=== PATIENT | female | born 1955 ===

== ENCOUNTER 2020-04-03 07:53 | Emergency (ER) | payer MEDICARE, MEDICAID, SELFPAY ==
--- NOTE | 2020-04-03 | ECG_ITS ---
Test Reason : CHEST PAIN Blood Pressure : / mmHG Vent. Rate : 071 BPM Atrial Rate : 277 BPM P-R Int : 000 ms QRS Dur : 136 ms QT Int : 426 ms P-R-T Axes : 057 -13 016 degrees QTc Int : 462 ms Normal sinus rhythm Right bundle branch block Minimal voltage criteria for LVH, may be normal variant Abnormal ECG When compared with ECG of 21-JAN-2014 17:25, No significant changes seen Referred By: Generic ED Physician Electronically Signed By:SIENNA DUBOSE
[2020-04-03 08:21] VITALS: BP 174/53; PULSE 61; RESP 16; TEMP 37.1; O2SAT 99; BMI 30.7
--- NOTE | 2020-04-03 08:29 | PC.NURSE ---
TRIAGED AT BEDSIDE WITH USE OF CARD PLACER. IV EST 20 G L AC. AWAITING PRIMARY EVAL BY PROVIDER
--- NOTE | 2020-04-03 09:05 | XR_ITS ---
EXAMINATION: XR CHEST CLINICAL INFORMATION: Chest pain COMPARISON: Previous chest x-ray April 2019 TECHNIQUE: Frontal view of the chest was obtained. FINDINGS: The cardiac and mediastinal contours are normal. The lungs are clear. There is no pleural effusion or pneumothorax. There are degenerative changes of the spine. There are soft tissue calcifications adjacent to the right greater tuberosity. XR/XR chest 1V IMPRESSION: No evidence for acute disease in the chest.
--- NOTE | 2020-04-03 09:07 | ED_ITS ---
HPI - Chest Pain General Chief Complaint: Chest Pain Stated Complaint: chest pain Time Seen by Provider: 04/03/20 09:05 Source: patient Mode of arrival: ambulatory Limitations: no limitations History of Present Illness HPI narrative: 64 y/o female with history of asthma, IDDM, HTN. HLD, GERD who presents with left sided, non-radiating chest pain that started this morning when her woke up her suddenly to take her medications. She states the manner he awoke her startled her and she developed pain in the left side of her chest. It is now resolved. She states the pain was sharp and aching in nature. It was worse when she touched it. She denies SOB, N/V, arm pain, jaw pain, diaphoresis. She denies personal or family history of cardiac disease. She had never had chest pain like this before and it made her very nervous, prompting ER evaluation. On arrival pain is resolved. MD complaint: chest pain Pertinent past history: asthma Onset (ago): hour(s) (3) Timing of current episode: episodic and now resolved Prior episodes: No Onset: other (upon waking up) Pain location: left chest Pain radiation: none Severity: mild Quality: aching and sharp Relieving factors: rest Exacerbating factors: palpation Treatment prior to arrival: none Risk Factors Coronary artery disease risk factors: diabetes, hyperlipidemia and hypertension Thoracic aortic dissection risk factors: none Related Data On Oral Contraceptives: No Allergies Allergy/AdvReac Type Severity Reaction Status Date / Time No Known Allergies Allergy Verified 04/03/20 08:24 Review of Systems Review of Systems: Constitutional: No Fever, No Chills ENT/Mouth: No sore throat, No Rhinorrhea, No Swallowing Difficulty Cardiovascular: + Chest Pain, No SOB, No Orthopnea, No Edema Respiratory: No Cough, No Sputum, No Wheezing, No dyspnea Gastrointestinal: No Nausea, No Vomiting, No Diarrhea, No abdominal Pain Genitourinary: No Dysuria, No Urinary Frequency, No Hematuria Musculoskeletal: + joint pain (bilateral knees and left shoulder, chronic), No Myalgias Skin: No Skin Lesions, No rash Neuro: No Weakness, No Numbness, + Dizziness (now resolved), No Headache Psych: + Anxiety/Panic, No Depression Heme/Lymph: No Bruising, No Lymphadenopathy Endocrine: No Polyuria, No Polydipsia REPLACED BY [facility] Past Medical History Medical History (Updated 04/03/20 @ 12:57 by ANABELLA Rodriguez) Asthma Diabetes GERD (gastroesophageal reflux disease) Hyperlipidemia Hypertension Osteoarthritis Social History Social History Advance Directives: No Advance Directives Information Provided: Yes Physical Exam Vital Signs: Vital Signs: Last Vital Signs Temp 98.7 F 04/03/20 08:21 Pulse 65 04/03/20 11:24 Resp 16 04/03/20 08:21 BP 144/57 H 04/03/20 11:24 Pulse Ox 99 04/03/20 08:21 Body Mass Index 30.7 Appearance: Alert. Oriented X3. No acute distress. Eyes: Pupils equal, round and reactive to light. ENT: Pharynx normal. Neck: Normal inspection. Neck supple. CVS: Normal heart rate and rhythm. Pulses normal. Left chest wall tenderness. Respiratory: No respiratory distress. Breath sounds normal. Abdomen: Soft and nontender. +BS x4 Skin: Skin warm and dry. Normal skin color. Normal skin turgor. No rashes. Extremities: No lower extremity edema. Negative Rossy's sign. Neuro: Oriented X 3. No motor deficit. No sensory deficit. Course Course Course Narrative: 64 y/o female with multiple cardiac risk factors presents with acute onset of left sided chest pain, now resolved. It is reproducible on exam, likely musculoskeletal in nature. Will r/o ACS with EKG, troponin and lab work. Exam is otherwise benign and she currently denies chest pain. Reevaluation(s) Reevaluation #1: Workup is unremarkable with negative troponin x2, unchanged EKG from prior and normal CXR. She remains pain free. No sign of cardiac chest pain, likely muscular in nature. Results were discussed with the patient. She is stable for discharge. MDM - Chest Pain Differential Diagnosis Differential diagnosis: Likely stable angina, unstable angina pectoris, atypical chest pain, st elevation myocardial infarction, costochondritis, chest pain and biliary colic Lab Data Attestation: I reviewed the patient's lab results. Lab results narrative: troponin <3.5 x2 Result diagrams: 04/03/20 09:47 04/03/20 09:47 Labs: Lab Results 04/03/20 04/03/20 04/03/20 Range/Units 09:47 09:47 09:47 WBC 6.9 (4.8-10.8) X10*3/uL RBC 4.02 L (4.20-5.50) X10*6/uL Hgb 11.7 L (12.0-16.0) g/dl Hct 34.9 L (37-47) % MCV 86.8 (80-98) fL MCH 29.1 (27.0-33.0) pg MCHC 33.5 (31.0-35.0) g/dl RDW 12.4 (11.0-16.0) % Plt Count 223 (160-400) X10*3/uL MPV 10.0 (9.4-12.3) fL Immature Gran % (Auto) 0.3 (0.0-0.4) % Neut % (Auto) 67.0 (45-73) % Lymph % (Auto) 22.5 (20-40) % Clay % (Auto) 8.9 (2-11) % Eos % (Auto) 1.2 (0-4) % Baso % (Auto) 0.1 (0-2) % Lymph # (Auto) 1.6 (1.2-4.9) X10*3/uL Clay # (Auto) 0.6 (0.1-1.2) X10*3/uL Eos # (Auto) 0.1 (0.0-0.4) X10*3/uL Baso # (Auto) 0.0 (0.0-0.2) X10*3/uL Abs Immat Gran (auto) 0.02 (0.00-0.03) X10*3/uL Absolute Neuts (auto) 4.6 (2.0-8.3) X10*3/uL Absolute Nucleated RBC 0.000 (0.0-0.012) X10*3/uL Nucleated RBC % (auto) 0.0 (0.0-0.2) /100WBC PT 12.6 (10.8-13.0) SEC INR 1.1 (0.9-1.1) APTT 37.6 (24.1-38.0) SEC Sodium 138 (135-145) mmol/L Potassium 4.1 (3.3-5.1) mmol/l Chloride 103 (96-108) mmol/L Carbon Dioxide 28 (22-29) mmol/L Anion Gap 11 L (12-20) BUN 17 H (9-16) mg/dL Creatinine 0.73 (0.5-1.4) mg/dL Estim Creat Clear Calc 64.0 Estimated GFR > 60 Random Glucose 185 H (60-115) mg/dL Calcium 9.3 (8.4-10.2) mg/dL Magnesium 1.7 (1.6-2.6) mg/dL Total Bilirubin 0.5 (0.0-1.0) mg/dL Direct Bilirubin 0.2 (0.0-0.5) mg/dL AST 26 (5-31) U/L ALT 32 H (0-31) U/L Alkaline Phosphatase 60 (39-117) U/L Troponin I High Sens (<3.5-17.0) ng/L B-Natriuretic Peptide (<100) pg/mL Total Protein 7.4 (6.5-8.0) g/dL Albumin 3.9 (3.5-5.0) g/dL 04/03/20 04/03/20 Range/Units 09:47 12:07 WBC (4.8-10.8) X10*3/uL RBC (4.20-5.50) X10*6/uL Hgb (12.0-16.0) g/dl Hct (37-47) % MCV (80-98) fL MCH (27.0-33.0) pg MCHC (31.0-35.0) g/dl RDW (11.0-16.0) % Plt Count (160-400) X10*3/uL MPV (9.4-12.3) fL Immature Gran % (Auto) (0.0-0.4) % Neut % (Auto) (45-73) % Lymph % (Auto) (20-40) % Clay % (Auto) (2-11) % Eos % (Auto) (0-4) % Baso % (Auto) (0-2) % Lymph # (Auto) (1.2-4.9) X10*3/uL Clay # (Auto) (0.1-1.2) X10*3/uL Eos # (Auto) (0.0-0.4) X10*3/uL Baso # (Auto) (0.0-0.2) X10*3/uL Abs Immat Gran (auto) (0.00-0.03) X10*3/uL Absolute Neuts (auto) (2.0-8.3) X10*3/uL Absolute Nucleated RBC (0.0-0.012) X10*3/uL Nucleated RBC % (auto) (0.0-0.2) /100WBC PT (10.8-13.0) SEC INR (0.9-1.1) APTT (24.1-38.0) SEC Sodium (135-145) mmol/L Potassium (3.3-5.1) mmol/l Chloride (96-108) mmol/L Carbon Dioxide (22-29) mmol/L Anion Gap (12-20) BUN (9-16) mg/dL Creatinine (0.5-1.4) mg/dL Estim Creat Clear Calc Estimated GFR Random Glucose (60-115) mg/dL Calcium (8.4-10.2) mg/dL Magnesium (1.6-2.6) mg/dL Total Bilirubin (0.0-1.0) mg/dL Direct Bilirubin (0.0-0.5) mg/dL AST (5-31) U/L ALT (0-31) U/L Alkaline Phosphatase (39-117) U/L Troponin I High Sens < 3.5 < 3.5 (<3.5-17.0) ng/L B-Natriuretic Peptide 37 (<100) pg/mL Total Protein (6.5-8.0) g/dL Albumin (3.5-5.0) g/dL ABG Data Attestation: I personally reviewed and interpreted this ABG as follows: ECG Data ECG #1: Attestation: I personally reviewed and interpreted this ECG as follows: ECG interpretation date: 04/03/20 ECG interpretation time: 12:57 Prior ECG tracings: available for review Interpretation: normal sinus rhythm, HR 712 bpm, RBBB, normal QRS. Unchanged from Jan 2014 Scores Heart Score History: -0- slightly suspicious ECG: -0- normal Age: -2- > or = 65 Risk factory: -1- 1 or 2 risk factors Troponin: -0- < or = normal limit Score: 3 Risk: 1.7% Discharge Plan Discharge Clinical Impression: Muscular chest pain Patient Disposition: Home, Self-Care Instructions: Chest Wall Pain (ED) Additional Instructions: Your workup today was unremarkable, it is highly unlikely that your chest pain is cardiac in nature. It is likely that the pain was muscular. Rest, no strenuous activity. Take Tylenol as needed for any residual pain. Follow up with your doctor this week. If you develop any recurrent chest pain or any other concerning symptoms come back to the ER for further evaluation. Print Language: Frisian
--- NOTE | 2020-04-03 09:16 | PC.NURSE ---
SEEN BY PROVIDER AT THIS TIME
[2020-04-03 10:03] LABS: Basophils Percent Auto 0.1 % (0-2); Eosinophils Absolute Auto 0.1 X10*3/uL (0.0-0.4); Eosinophils Percent Auto 1.2 % (0-4); Hematocrit 34.9 % (37-47); Hemoglobin 11.7 g/dl (12.0-16.0); Imm Gran Abs Auto 0.02 X10*3/uL (0.00-0.03); Imm Gran Pct Auto 0.3 % (0.0-0.4); Lymphocytes Absolute Auto 1.6 X10*3/uL (1.2-4.9); Lymphocytes Percent Auto 22.5 % (20-40); MANUAL DIFF FLAG NO; Mean Corpuscular HGB Conc 33.5 g/dl (31.0-35.0); Mean Corpuscular Hemoglobin 29.1 pg (27.0-33.0); Mean Corpuscular Volume 86.8 fL (80-98); Monocytes Absolute Auto 0.6 X10*3/uL (0.1-1.2); Monocytes Percent Auto 8.9 % (2-11); Neutrophils Absolute Auto 4.6 X10*3/uL (2.0-8.3); Platelet Count 223 X10*3/uL (160-400); Red Blood Count 4.02 X10*6/uL (4.20-5.50); Red Cell Distribution Width 12.4 % (11.0-16.0); White Blood Count 6.9 X10*3/uL (4.8-10.8)
[2020-04-03 10:13] LABS: INTERNATIONAL NORM RATIO 1.1 (0.9-1.1); Prothrombin Time 12.6 SEC (10.8-13.0)
[2020-04-03 10:15] LABS: Partial Thromboplastin Time 37.6 SEC (24.1-38.0)
[2020-04-03 10:38] LABS: Alanine Aminotransferase 32 U/L (0-31); Albumin Level 3.9 g/dL (3.5-5.0); Alkaline Phosphatase 60 U/L (39-117); Anion Gap 11 (12-20); Aspartate Amino Transferase 26 U/L (5-31); Bilirubin Direct 0.2 mg/dL (0.0-0.5); Bilirubin Total 0.5 mg/dL (0.0-1.0); Blood Urea Nitrogen 17 mg/dL (9-16); Calcium 9.3 mg/dL (8.4-10.2); Carbon Dioxide 28 mmol/L (22-29); Chloride 103 mmol/L (96-108); Estimated Glomerular Filt Rate > 60; Glucose Random 185 mg/dL (60-115); Magnesium 1.7 mg/dL (1.6-2.6); Potassium 4.1 mmol/l (3.3-5.1); Sodium 138 mmol/L (135-145); Total Protein 7.4 g/dL (6.5-8.0)
[2020-04-03 10:40] LABS: B Type Natriuretic Peptide 37 pg/mL (<100); Troponin-I High Sensitivity < 3.5 ng/L (<3.5-17.0)
[2020-04-03 11:24] VITALS: BP 144/57; PULSE 65
[2020-04-03 12:51] LABS: Troponin-I High Sensitivity < 3.5 ng/L (<3.5-17.0)
== END 2020-04-03 13:23 | disposition home or self-care (01) ==
PROVIDERS: Physician Assistant; Emergency Provider Emergency Medicine Emergency Medical Services; PCP Nurse Practitioner Family
DX: R07.89 Other chest pain (principal); I10 Essential (primary) hypertension; E11.9 Type 2 diabetes mellitus without complications; Z79.899 Other long term (current) drug therapy
CPT/HCPCS: 36415; 71045; 80048; 80076; 83735; 83880; 84484; 85025; 85610; 85730; 93005; 99283

== ENCOUNTER → 2020-07-03 08:54 | Outpatient (BNVA) | payer MEDICARE, MEDICAID, SELFPAY | PROVIDERS: Visit Provider Orthopaedic Surgery | DX: M17.12 Unilateral primary osteoarthritis, left knee (principal) | CPT/HCPCS: 20610; 99212; J1040 ==

== ENCOUNTER 2020-07-19 08:00 | Outpatient (REF) | payer MEDICARE, MEDICAID, SELFPAY ==
[2020-07-19 08:31] LABS: COVID-19 Test Negative (Negative)
== END 2020-07-19 08:01 | disposition home or self-care (01) ==
LOC: HO.LAB 08:00
PROVIDERS: Visit Provider Internal Medicine
DX: Z20.822 Contact with and (suspected) exposure to COVID-19 (principal)
CPT/HCPCS: 36415; 87635; C9803

== ENCOUNTER 2020-12-25 12:50 | Outpatient (REF) | payer MEDICARE, MEDICAID, SELFPAY ==
--- NOTE | ~2020-12-25 | XR_ITS ---
EXAMINATION: XR BOTH KNEES AP STANDING XR RIGHT KNEE, 2 VIEWS CLINICAL INFORMATION: Pain. COMPARISON: Bilateral knee radiographs dated 01/18/2019 TECHNIQUE: Standing AP view of both knees and lateral and sunrise views of the right knee. FINDINGS: Right knee: Moderate medial compartment joint space narrowing. Tiny medial and patellofemoral compartment marginal osteophytes. No osseous erosion. No fracture or dislocation. No significant joint effusion. Atherosclerotic calcifications. Left knee: Moderate medial compartment joint space narrowing. Medial and lateral compartment chondrocalcinosis and marginal osteophytes. No osseous erosion. No fracture or dislocation. XR/XR knee standing BI IMPRESSION: Right knee: Moderate medial as well as mild lateral compartment osteoarthritis, similar when compared to the prior radiographs. Left knee: Fbvrnozq-fz-bwayka medial and ojgh-th-[id number] lateral compartment osteoarthritis with medial and lateral compartment chondrocalcinosis, unchanged.
--- NOTE | ~2020-12-25 | XR_ITS ---
EXAMINATION: XR BOTH KNEES AP STANDING XR RIGHT KNEE, 2 VIEWS CLINICAL INFORMATION: Pain. COMPARISON: Bilateral knee radiographs dated 01/18/2019 TECHNIQUE: Standing AP view of both knees and lateral and sunrise views of the right knee. FINDINGS: Right knee: Moderate medial compartment joint space narrowing. Tiny medial and patellofemoral compartment marginal osteophytes. No osseous erosion. No fracture or dislocation. No significant joint effusion. Atherosclerotic calcifications. Left knee: Moderate medial compartment joint space narrowing. Medial and lateral compartment chondrocalcinosis and marginal osteophytes. No osseous erosion. No fracture or dislocation. XR/XR knee RT 2V IMPRESSION: Right knee: Moderate medial as well as mild lateral compartment osteoarthritis, similar when compared to the prior radiographs. Left knee: Qondrrdk-zb-htkguf medial and bfuw-ks-ewgaaolj lateral compartment osteoarthritis with medial and lateral compartment chondrocalcinosis, unchanged.
== END 2020-12-25 12:51 | disposition home or self-care (01) ==
LOC: HO.HOSX 12:50
PROVIDERS: Visit Provider Physician Assistant
DX: M54.16 Radiculopathy, lumbar region (principal); M17.11 Unilateral primary osteoarthritis, right knee
CPT/HCPCS: 73560; 73565; 99212

== ENCOUNTER → 2021-01-18 10:58 | Outpatient (BNVA) | payer MEDICARE, MEDICAID, SELFPAY | PROVIDERS: PCP Physician Assistant; Visit Provider Nurse Practitioner Family | DX: M54.16 Radiculopathy, lumbar region (principal); M17.12 Unilateral primary osteoarthritis, left knee | CPT/HCPCS: 99202 ==

== ENCOUNTER 2021-01-28 08:28 | Outpatient (REF) | payer MEDICARE, MEDICAID, SELFPAY ==
--- NOTE | ~2021-01-28 | MM_ITS ---
EXAMINATION: MM SCREENING DIGITAL BREAST TOMOSYNTHESIS, BILATERAL CLINICAL INFORMATION: Screening. Asymptomatic. The lifetime risk of breast cancer based on the Tyrer-Cuzick Model is 3%. COMPARISON: Mammography: 02/03/2019, 01/18/2018, 03/13/2017 TECHNIQUE: Digital breast tomosynthesis is performed in both the craniocaudal and mediolateral oblique views along with computer-aided detection (CAD). Synthesized 2D images are generated from the tomosynthesis. FINDINGS: The breasts are heterogeneously dense, which may obscure small masses (ACR BI-RADS breast composition Category c). Parenchymal pattern is similar to prior studies. Breast tissue composition borders on extremely dense. There is no developing density or interval mass or architectural abnormality. Again, there are numerous bilateral punctate and grouped coarse and vascular calcifications. No interval suspicious calcifications. The axilla and skin contours are unremarkable. There are no significant changes from prior studies. MM/MM tomosynthesis screening BI IMPRESSION: No mammographic evidence of malignancy. ASSESSMENT: BI-RADS 2: Benign RECOMMENDATION: Routine annual mammography screening. This patient's information was entered into a reminder system with a target due date for their next mammogram.
== END 2021-01-28 08:29 | disposition home or self-care (01) ==
LOC: HO.MAMMO 08:28
PROVIDERS: Visit Provider Nurse Practitioner Family
DX: Z12.31 Encounter for screening mammogram for malignant neoplasm of breast (principal)
CPT/HCPCS: 77063; 77067

== ENCOUNTER 2021-03-06 14:54 | Emergency (ER) | payer MEDICARE, MEDICAID, SELFPAY ==
--- NOTE | ~2021-03-06 | XR_ITS ---
EXAMINATION: XR CHEST CLINICAL INFORMATION: Cough and congestion. COMPARISON: None TECHNIQUE: 2 views of the chest were obtained. FINDINGS: The lungs are well-expanded and clear of acute process. The heart size and pulmonary vascularity is normal. There is moderate spondylosis dorsal spine. No lytic process seen. XR/XR chest 2V IMPRESSION: Unremarkable chest exam.
[2021-03-06 15:07] VITALS: BP 161/78; PULSE 76; RESP 18; TEMP 36.4; O2SAT 94; BMI 30.2
[2021-03-06 16:31] VITALS: BP 169/81; PULSE 69; RESP 16; TEMP 36.8; O2SAT 96
[2021-03-06 17:11] LABS: Influenza A PCR NEGATIVE (Negative); Influenza B PCR NEGATIVE (Negative); Resp Syncy Virus RNA Qual PCR NEGATIVE (Negative); SARS COV2 PCR INHOUSE NEGATIVE (Negative)
[2021-03-06] MEDS: predniSONE 20 MG TABLET 40 MG PO (17:24)
[2021-03-06] MEDS: Albuterol Sulfate (0.083%) 2.5 MG/3 ML VIAL.NEB 10 MG INHALE (17:25)
[2021-03-06 17:30] VITALS: PULSE 68; O2SAT 97
--- NOTE | 2021-03-06 17:36 | ED_ITS ---
HPI - URI/Sore Throat General Chief Complaint: General Medical Stated Complaint: COUGHING CONGESTION Time Seen by Provider: 03/06/21 15:25 Source: patient and family Mode of arrival: ambulatory Limitations: language barrier (Bengali-Speaking ) History of Present Illness HPI Narrative: 65-year-old female with a past medical history of asthma, insulin-dependent diabetes, hypertension, hyperlipidemia and GERD presenting to the ED with complaints of URI symptoms over the past few days after receiving her flu shot worse today. Reports that she is having chills, intermittent episodes of epistaxis, nasal congestion/rhinorrhea, sore throat and a dry cough with chest congestion. She reports she has been trying [id number] Robitussin no symptomatic relief. She denies any recent travel or sick contacts. She reports that she is vaccinated to COVID for 7 months. She denies any measured fevers, dizziness, headaches, neck pain/stiffness, trouble swallowing or breathing, chest pain or shortness of breath, dyspnea on exertion, orthopnea, palpitations, nausea/vomiting/diarrhea constipation, dysuria, abdominal pain, back pain, rashes or any focal weakness or any other symptoms complaints or concerns at this time. MD elicited complaint: cough, sore throat, rhinorrhea and nasal congestion Onset (ago): day(s) (For the past few days worse today) Consistency: constant and progressively worsening Severity: moderate Description of mucous: clear, watery and yellow Able to tolerate fluids by mouth: Yes Exacerbating factors: swallowing Relieving factors: nothing Context: other (Reports she received the flu shot and the day after started having the symptoms) Associated symptoms: rhinorrhea, nasal congestion, sore throat, cough and epistaxis Treatments prior to arrival: cold medicine Related Data Previous Rx's Medication Instructions Recorded diclofenac sodium 75 mg 75 mg PO BID 30 Days #60 tab 01/22/21 tablet,delayed release albuterol sulfate 0.63 mg/3 mL 0.63 mg (3 mL) INHALATION QID PRN 03/06/21 solution for nebulization #75 ml albuterol sulfate 90 mcg/actuation 1 inh INHALATION QID PRN #8.5 g 03/06/21 aerosol inhaler azithromycin 250 mg tablet See Rx Instructions .ROUTE 03/06/21 .COMPLEX #6 tab codeine 10 mg-guaifenesin 100 mg/5 5 ml PO Q6H PRN #120 ml 03/06/21 mL oral liquid (Guaifenesin AC) nebulizers (AeroEclipse II #1 ea 03/06/21 Nebulizer) prednisone 20 mg tablet 40 mg PO DAILY 5 Days #10 tab 03/06/21 Allergies Allergy/AdvReac Type Severity Reaction Status Date / Time No Known Allergies Allergy Verified 01/18/21 11:25 Review of Systems Review of Systems: Constitutional : No Weight loss, No Fever, No Chills, No Night Sweats, No Fatigue, No Malaise ENT/Mouth : No Hearing loss, No Ear Pain, + Nasal Congestion, No Sinus Pain, No Hoarseness, + sore throat, + Rhinorrhea, No Swallowing Difficulty Eyes: No Eye Pain, No Swelling, No Redness, No Foreign Body, No Discharge, No Vision Changes Cardiovascular : No Chest Pain, No SOB, No Dyspnea on Exertion, No Orthopnea, No Edema, No Palpitations Respiratory : + Cough, No Sputum, No Wheezing, No Smoke Exposure, No Dyspnea Gastrointestinal : No Nausea, No Vomiting, No Diarrhea, No Constipation, No abdominal Pain, No Hematochezia, No Melena Genitourinary : no irregular bleeding, No Dysuria, No Urinary Frequency, No Hematuria, No Urinary Incontinence, No Urgency, No Flank Pain, No Urinary Flow Changes, No Hesitancy Musculoskeletal : No joint pain, No Myalgias, No Joint Swelling Skin : No Skin Lesions, No rash Neuro : No Weakness, No Numbness, No Paresthesias, No Loss of Consciousness, No Dizziness, No Headache Psych : No Anxiety/Panic, No Depression, No SI/HI/AH/VH, No Social Issues, Heme/Lymph: No Bruising, No Bleeding,No Lymphadenopathy Endocrine : No Polyuria, No Polydipsia, No Temperature Intolerance Yes all other systems are reviewed and are negative [facility] Past Medical History Attestation statement: The following information was validated with the patient. Medical History Asthma Diabetes GERD (gastroesophageal reflux disease) Hyperlipidemia Hypertension Osteoarthritis Social History Social History Advance Directives: No Advance Directives Information Provided: No Physical Exam Vital Signs: Vital Signs: Last Vital Signs Temp 97.4 F 03/06/21 18:33 Pulse 77 03/06/21 18:33 Resp 16 03/06/21 18:33 BP 143/74 H 03/06/21 18:33 Pulse Ox 98 03/06/21 18:33 BMI result Body Mass Index 30.2 vital signs have been reviewed as normal and appeared to be correct. Blood pressure 161/78 Heart rate normal. Respiration rate normal. Temperature normal. Oxygen saturation normal. Appearance: Alert. Oriented X3. No acute distress. Head: Normal external exam. Normocephalic. Atraumatic. Eyes: PERRLA. EOMI. Conjunctiva and sclera normal. Eyelids normal. ENT: EAC normal. TM's Normal. Pharynx normal. Uvula midline. Moist mucous membranes. No trismus noted. No drooling noted. No muffled voice noted. Neck: Normal inspection. Neck supple. FROM. No adenopathy. Thyroid Normal. No meningeal signs. No neck mass noted. CVS: Normal heart rate and rhythm. Heart sound normal. Pulses normal throughout. No murmurs/rales/gallops. Respiratory: Mild respiratory distress with inspiratory and expiratory wheezing throughout with decreased breath sounds and chest congestion otherwise patient has painless inspiration and no rales/rhonchi noted. No accessory muscle usage noted. Abdomen: Soft and nontender. Bowel sounds normal in all 4 quadrants. No distention noted. No organomegaly noted. No visible injury noted. Back: Full range of motion noted. No rashes/lesion/induration/fluctuance or signs of infection noted. Skin: Skin warm and dry. Normal skin color. Normal skin turgor. No rashes/lesions/lacerations noted. Extremities: No lower extremity edema. No calf tenderness is noted. Extremities exhibit normal range of motion. Extremities nontender. Neuro: Oriented X 3. No motor deficit. No sensory deficit. Reflexes normal. Normal steady gait. No focal neuro deficits noted. Vascular: + radial pulses/+ 2 distal pedal pulses/+2 dorsalis pedis b/l. Normal cap refill. No cyanosis noted to upper extremity nails and lower extremity toes nails. Course Course Course Narrative: 65-year-old female with a past medical history of asthma, insulin-dependent diabetes, hypertension, hyperlipidemia and GERD presenting to the ED with complaints of URI symptoms over the past few days after receiving her flu shot worse today. Reports that she is having chills, intermittent episodes of epistaxis, nasal congestion/rhinorrhea, sore throat and a dry cough with chest congestion. She reports she has been trying [id number] Robitussin no symptomatic relief. She denies any recent travel or sick contacts. She reports that she is vaccinated to COVID for 7 months. On exam patient had mild respiratory distress with decreased breath sounds and expiratory and inspiratory wheezing with oxygen saturation at 94% on room air. Otherwise no rhonchi/rales noted. CV RRR. No lower extremity edema noted. Her chest x-ray is negative for pneumonia or any other acute processes. COVID/RSV/flu negative. Patient received a breathing treatment feels much better. Her oxygen saturation is now 98% on room air. Will DC home with antibiotics for bronchitis and symptomatic treatment instructions return if any new or worsening symptoms to follow up with primary care provider. Patient understands agrees with this plan. MDM - URI/Sore Throat Medical Records Attestation: I reviewed the patient's medical records. Lab Data Attestation: I reviewed the patient's lab results. Labs: Lab Results 03/06/21 Range/Units 15:35 Influenza Type A (PCR) NEGATIVE (Negative) Influenza Type B (PCR) NEGATIVE (Negative) RSV RNA Qual (PCR) NEGATIVE (Negative) SARS-CoV-2 RNA (RT-PCR) NEGATIVE (Negative) Imaging Data Chest x-ray: Attestation: I personally reviewed and interpreted this imaging study as follows: Radiologist's impression: FINDINGS: The lungs are well-expanded and clear of acute process. The heart size and pulmonary vascularity is normal. There is moderate spondylosis dorsal spine. No lytic process seen. XR/XR chest 2V IMPRESSION: Unremarkable chest exam. Critical Care Time Critical Care Time Critical Care Time: Yes Total Critical Care Time: 60 Attestation: I personally attest to this time spent taking care of the patient Discharge Plan Discharge Clinical Impression: Acute bronchitis with asthma with acute exacerbation Patient Disposition: Home, Self-Care Instructions: Asthma (ED), Acute Bronchitis (ED) Prescriptions: New (DME) AeroEclipse II Nebulizer Misc See Rx Instructions .ROUTE .MEDSUPPLY Qty: 1 RF: 0 albuterol sulfate 0.63 mg/3 mL solution for nebulization 0.63 mg inhalation QID PRN (Reason: shortness of breath or wheezing) Qty: 75 RF: 0 albuterol sulfate 90 mcg/actuation HFA aerosol inhaler 1 inh inhalation QID PRN (Reason: shortness of breath or wheezing) Qty: 8.5 RF: 0 azithromycin 250 mg tablet See Rx Instructions .ROUTE .COMPLEX Qty: 6 RF: 0 prednisone 20 mg tablet 40 mg PO DAILY 5 Days Qty: 10 RF: 0 codeine-guaifenesin [Guaifenesin AC] 10-100 mg/5 mL liquid 5 ml PO Q6H PRN (Reason: cold symptoms) Qty: 120 RF: 0 No Action diclofenac sodium 75 mg tablet,delayed release (DR/EC) 75 mg PO BID 30 Days Qty: 60 RF: 2 Referrals: Physician,Unknown J [Primary Care Provider] - 2 days (your pcp) Print Language: Bengali
[2021-03-06 18:33] VITALS: BP 143/74; PULSE 77; RESP 16; TEMP 36.3; O2SAT 98
--- NOTE | 2021-03-06 18:35 | PC.NURSE ---
PATIENT WENT WENT FOR WALK WITH PULSE OX ,OXYGEN REMAIN AT 96%,PROVIDER AWARE .
[2021-03-06] MEDS: Azithromycin 500 MG TABLET PO (19:10)
== END 2021-03-06 18:54 | disposition home or self-care (01) ==
PROVIDERS: Physician Assistant Medical; Emergency Provider Emergency Medicine
DX: J20.9 Acute bronchitis, unspecified (principal); J45.901 Unspecified asthma with (acute) exacerbation; Z20.822 Contact with and (suspected) exposure to COVID-19; Z79.899 Other long term (current) drug therapy
CPT/HCPCS: 0241U; 36415; 71046; 94640; 94644; 99284

== ENCOUNTER 2021-04-10 09:07 | Outpatient (REF) | payer MEDICARE, MEDICAID, SELFPAY ==
[2021-04-10 10:42] LABS: COVID-19 Test Positive (Negative)
== END 2021-04-10 09:08 | disposition home or self-care (01) ==
LOC: HO.LAB 09:07
PROVIDERS: Visit Provider Internal Medicine
DX: Z20.822 Contact with and (suspected) exposure to COVID-19 (principal)
CPT/HCPCS: 87635; C9803

== ENCOUNTER 2021-04-20 12:36 | Emergency (ER) | payer MEDICARE, MEDICAID, SELFPAY ==
--- NOTE | ~2021-04-20 | XR_ITS ---
EXAMINATION: XR CHEST CLINICAL INFORMATION: Cough, Covid. COMPARISON: None TECHNIQUE: Frontal view of the chest was obtained. FINDINGS: The lungs are well-expanded with slight increased bilateral parahilar markings but no congestion. No consolidation or pleural effusion seen. The heart size is normal. There is moderate spondylosis dorsal spine. XR/XR chest 1V IMPRESSION: Bilateral increased parahilar markings question interstitial pneumonitis or vascular congestion.
--- NOTE | 2021-04-20 13:07 | PC.NURSE ---
trying to obtain trimmer buffing wheel
[2021-04-20 13:15] VITALS: BP 166/75; PULSE 77; RESP 18; TEMP 36.5; O2SAT 95; BMI 30.2
[2021-04-20 13:39] LABS: COVID-19 Test Positive (Negative); IDNOW Serial# 9DD0AD1C
--- NOTE | 2021-04-20 18:29 | ED.URI ---
HPI - URI/Sore Throat General Chief Complaint: Upper Respiratory Symptoms Stated Complaint: coughing SOB Time Seen by Provider: 04/20/21 14:18 Source: patient Mode of arrival: ambulatory Limitations: no limitations History of Present Illness HPI Narrative: 65 y/o female with history of asthma, GERD, diabetes, osteoarthritis, HLD who presents to the ER with coughing that started yesterday. She recently had COVID-19 on April 10. She reports a mild lingering cough but yesterday significantly worsening of the cough with new production of white phlegm. She denies any fever or chills. She is short of breath when she has a coughing fit but not with exertion or rest. She denies any chest pain. MD elicited complaint: cough Pertinent past history: asthma Onset (ago): day(s) (1) Consistency: intermittent Severity: moderate Description of mucous: other ( White) Able to tolerate fluids by mouth: Yes Exacerbating factors: other (coughing) Relieving factors: OTC cold medicine Associated symptoms: cough and shortness of breath ( with coughing only) Treatments prior to arrival: none Related Data Previous Rx's Medication Instructions Recorded diclofenac sodium 75 mg 75 mg PO BID 30 Days #60 tab 01/22/21 tablet,delayed release albuterol sulfate 0.63 mg/3 mL 0.63 mg (3 mL) INHALATION QID PRN 03/06/21 solution for nebulization #75 ml albuterol sulfate 90 mcg/actuation 1 inh INHALATION QID PRN #8.5 g 03/06/21 aerosol inhaler azithromycin 250 mg tablet See Rx Instructions .ROUTE 03/06/21 .COMPLEX #6 tab codeine 10 mg-guaifenesin 100 mg/5 5 ml PO Q6H PRN #120 ml 03/06/21 mL oral liquid (Guaifenesin AC) nebulizers (AeroEclipse II #1 ea 03/06/21 Nebulizer) prednisone 20 mg tablet 40 mg PO DAILY 5 Days #10 tab 03/06/21 azithromycin 250 mg tablet See Rx Instructions .ROUTE 04/20/21 (Zithromax Z-Otoniel) .COMPLEX #6 tab benzonatate 100 mg capsule 100 mg PO TID PRN #20 cap 04/20/21 Allergies Allergy/AdvReac Type Severity Reaction Status Date / Time No Known Allergies Allergy Verified 04/20/21 13:15 Review of Systems Review of Systems: Constitutional: No Fever, No Chills ENT/Mouth: No sore throat, No Rhinorrhea, No Swallowing Difficulty Cardiovascular: No Chest Pain, No SOB, No Orthopnea, No Edema Respiratory: + Cough, + Sputum, No Wheezing, No dyspnea Gastrointestinal: No Nausea, No Vomiting, No Diarrhea, No abdominal Pain Musculoskeletal: No joint pain, No Myalgias Skin: No Skin Lesions, No rash Neuro: No Weakness, No Numbness, No Dizziness, No Headache Heme/Lymph: No Bruising, No Lymphadenopathy PMFSH Past Medical History Medical History Asthma Diabetes GERD (gastroesophageal reflux disease) Hyperlipidemia Hypertension Osteoarthritis Social History Social History Advance Directives: Yes Advance Directives Information Provided: Yes Advance Directives on File: No Physical Exam Vital Signs: Vital Signs: Last Vital Signs Temp 97.7 F 04/20/21 13:15 Pulse 77 04/20/21 13:15 Resp 18 04/20/21 13:15 BP 166/75 H 04/20/21 13:15 Pulse Ox 95 04/20/21 13:15 BMI result Body Mass Index 30.2 Appearance: Alert. Oriented X3. No acute distress. Eyes: Pupils equal, round and reactive to light. ENT: Pharynx normal. Neck: Normal inspection. Neck supple. CVS: Normal heart rate and rhythm. Pulses normal. Respiratory: No respiratory distress. Breath sounds normal. Speaks in complete sentences, no distress. No cough noted in the 10 minute interview. Abdomen: Soft and nontender. +BS x4 Skin: Skin warm and dry. Normal skin color. Normal skin turgor. No rashes. Extremities: No lower extremity edema. No calf tenderness. Neuro: Oriented X 3. No motor deficit. No sensory deficit. Course Course Course Narrative: 65-year-old female with a history of asthma, diabetes, GERD, HLD, osteoarthritis, history of bronchitis in March and recent COVID-19 who presents to the ER with productive cough that started yesterday. On arrival her vital signs are within normal limits. Her exam is benign and she appears well. Her lungs are clear with no noted cough during the interview or examination. Her chest x-ray shows some increased interstitial markings but no overt pneumonia. She has no signs of fluid overload on exam and has no history of heart failure. Most likely acute bronchitis, either secondary to COVID-19 or another viral process. Will hold off on steroids given she is not wheezing and she reports her glucose has been in the 300s. She has plenty nebulizer treatments at home. Stable for discharge home with azithromycin and antitussives. She was encouraged to follow-up with her primary care doctor next week. MDM - URI/Sore Throat Lab Data Labs: Lab Results 04/20/21 Range/Units 13:20 COVID-19 (BELLA) Positive A (Negative) COVID-19 Clin Com See Note Discharge Plan Discharge Clinical Impression: Bronchitis Patient Disposition: Home, Self-Care Instructions: Acute Bronchitis (ED) Additional Instructions: Continue to use your nebulizer treatments every 4 hours as needed Recommend over the counter cough mediation and cough drops Stay hydrated Follow up with your doctor next week If you develop new or worsening symptoms call 911 or come back to the ER for further evaluation. Contin?e usando shane tratamientos con nebulizador cada 4 horas seg?n sea necesario Recomiende medicamentos para la tos y pastillas para la tos de venta loulou Mantente hidratado Seguimiento con jenkins m?dico la pr?xima semana Si desarrolla s?ntomas nuevos o que empeoran, llame al 911 o regrese a la kahlil de emergencias para tiara evaluaci?n adicional. Prescriptions: New azithromycin [Zithromax Z-Otoniel] 250 mg tablet See Rx Instructions .ROUTE .COMPLEX Qty: 6 RF: 0 benzonatate 100 mg capsule 100 mg PO TID PRN (Reason: cough) Qty: 20 RF: 0 No Action diclofenac sodium 75 mg tablet,delayed release (DR/EC) 75 mg PO BID 30 Days Qty: 60 RF: 2 (DME) AeroEclipse II Nebulizer Misc See Rx Instructions .ROUTE .MEDSUPPLY Qty: 1 RF: 0 albuterol sulfate 0.63 mg/3 mL solution for nebulization 0.63 mg inhalation QID PRN (Reason: shortness of breath or wheezing) Qty: 75 RF: 0 albuterol sulfate 90 mcg/actuation HFA aerosol inhaler 1 inh inhalation QID PRN (Reason: shortness of breath or wheezing) Qty: 8.5 RF: 0 azithromycin 250 mg tablet See Rx Instructions .ROUTE .COMPLEX Qty: 6 RF: 0 prednisone 20 mg tablet 40 mg PO DAILY 5 Days Qty: 10 RF: 0 codeine-guaifenesin [Guaifenesin AC] 10-100 mg/5 mL liquid 5 ml PO Q6H PRN (Reason: cold symptoms) Qty: 120 RF: 0 Interventions: ED Discharge Assessment Last Done: 04/20/21 19:26 Discharge Date/Time: 04/20/21 19:28
== END 2021-04-20 19:28 | disposition home or self-care (01) ==
PROVIDERS: Emergency Provider Internal Medicine
DX: U07.1 COVID-19 (principal); J40 Bronchitis, not specified as acute or chronic; E11.9 Type 2 diabetes mellitus without complications; E78.5 Hyperlipidemia, unspecified; Z79.899 Other long term (current) drug therapy
CPT/HCPCS: 71045; 87635; 99283

== ENCOUNTER 2021-04-25 07:47 | Outpatient (REF) | payer MEDICARE, MEDICAID, SELFPAY ==
[2021-04-25 08:13] LABS: COVID-19 Test Negative (Negative)
== END 2021-04-25 07:48 | disposition home or self-care (01) ==
LOC: HO.LAB 07:47
PROVIDERS: Visit Provider Internal Medicine
DX: Z20.822 Contact with and (suspected) exposure to COVID-19 (principal)
CPT/HCPCS: 87635; C9803

== ENCOUNTER → 2021-05-22 12:42 | Outpatient (BNVA) | payer MEDICARE, MEDICAID, SELFPAY | PROVIDERS: Visit Provider Physician Assistant | DX: K21.9 Gastro-esophageal reflux disease without esophagitis (principal); K52.9 Noninfective gastroenteritis and colitis, unspecified; R10.11 Right upper quadrant pain | CPT/HCPCS: 99212 ==

== ENCOUNTER → 2021-11-18 09:13 | Outpatient (REF) | payer MEDICARE, MEDICAID, SELFPAY ==
--- NOTE | 2021-11-18 09:40 | CA_ITS ---
Transthoracic Echocardiogram Patient (Last, First, Middle): Olivia Rivero, Gender: Female Date of : 1955 Age: 66 Procedure Date: 11/18/2021 Procedure Type: Transthoracic Echocardiogram Location: OP Height: 149.86 cm Weight: 68.95 kg BSA: 1.64 m2 Heart Rate: bpm BP: 122 / 56 mmHg Automation Driver: Referring MD: Maryann Bolton OIL WELL LOGGER Symptoms: I51.7 CARDIOMEGALY J90 PLEURAL EFFUSION Study Quality: Adequate ECG Rhythm: Sinus Conclusions: - The left ventricular systolic function is mildly decreased. The calculated ejection fraction is 50% by biplane method. - The inferolateral wall and basal inferior segment are akinetic. - No obvious valvular pathology seen on this study. Findings Left Ventricle Normal left ventricular cavity size. There is mildly increased left ventricular wall thickness. The left ventricular systolic function is mildly decreased. The calculated ejection fraction is 50% by biplane method. There is evidence of regional wall motion abnormalities. E/E prime ratio is >15, consistent with elevated filling pressures. Evidence suggests grade II (moderate) diastolic dysfunction. Wall Motion Rest Echo Findings The inferolateral wall and basal inferior segment are akinetic. Right Ventricle Normal right ventricular cavity size and systolic function. Atria Both atria are normal in size. Aortic Valve There is a normal trileaflet aortic valve. There is no aortic valve stenosis. There is no aortic valve regurgitation. Mitral Valve There is mild mitral annular calcification. There is mild mitral valve regurgitation. There is no mitral valve stenosis. Pulmonic Valve The pulmonic valve is likely normal. Tricuspid Valve There is mild tricuspid valve regurgitation. There is no evidence of pulmonary hypertension. Great Vessels The aortic annulus, sinuses of valsalva, and asc aorta are normal in size. Venous The inferior vena cava is normal in size and collapses greater than 50% with inspiration. Pericardium/Pleural There is no evidence of pericardial effusion. Prior Study Comparison Changes noted compared to prior study dated: 07/08/2011. Wall motion abnormality not previously reported. Recommendations, Care & Conclusions No obvious valvular pathology seen on this study. Measurements 2D Linear Measurements IVSd: 1.24 0.6-0.9/0.6-1.0 cm LVIDd: 5.07 3.9-5.3/4.2-5.9 cm LVIDd Index: 3.09 2.4-3.2/2.2-3.1 cm/m2 LVIDs: 3.55 2.0-3.6 cm LVPWd: 1.23 0.7-1.1 cm LA Diam: 3.50 2.7-3.8/3.0-4.0 cm LAIDs Index: 2.13 1.5-2.3 cm/m2 LV Mass: 310.27 67-162/88-224 g LV Mass Index: 189.19 43-95/49-115 g/m2 LVOT Diam: 2.00 3.0+(-)1.3 cm 2D Systolic Function EF 4C: 54.80 >55% EF 2C: 40.70 >55% EF BiP: 49.90 >55% Mitral Valve MV Pk E: 1.07 MV PK A: 0.81 MV Decel Time: 117.00 E/A: 1.30 E'Lateral: 6.64 E'Medial: 4.24 E/E' Med: 25.20 E/E' Lat: 16.10 PHT: 34.00 MVA PHT: 6.47 Decel [place]: 9.18 Aortic Valve AoV Pk Joe: 1.52 AoV Mn Joe: 1.08 AoV VTI: 0.42 AoV Pk Grad: 9.00 Aov Mn Grad: 5.00 MOLLY Cont.VTI: 1.34 LVOT LVOT Pk Joe: 0.70 LVOT Mn Joe: 0.48 LVOT VTI: 0.18 LVOT Pk Grad: 2.00 LVOT Mn Grad: 1.00 LVOT Diam: 2.00 LVOT Area: 3.14 Diastolic Function MV Pk E: 1.07 MV Pk A: 0.81 E/A: 1.30 E'Medial: 4.24 E/E' Med: 25.20 E' Laterial: 6.64 E/E' Lat: 16.10 Right Ventricle TAPSE (mm): 30.00 TVS' Joe: 10.00 Tricuspid Valve TR Pk Joe: 1.83 TR Pk Grad: 13.00 RA Press: 3.00 RVSP: 16.00 Pulmonary Valve PV Pk Joe: 0.86 Peak PV Grad: 3.00 Updated in Other Vendor System with Status of Final Ean Nelson MD electronically signed on 11/18/2021 12:29:18 PM with status of Final
== END ==
LOC: HO.CARD 09:13
PROVIDERS: PCP Registered Nurse; Visit Provider Registered Nurse
DX: I51.7 Cardiomegaly (principal); J90 Pleural effusion, not elsewhere classified
CPT/HCPCS: 93306

== ENCOUNTER → 2021-12-19 14:17 | Outpatient (BNVA) | payer MEDICARE, MEDICAID, SELFPAY | PROVIDERS: PCP Registered Nurse; Visit Provider Hospitalist | DX: J45.40 Moderate persistent asthma, uncomplicated (principal); J84.10 Pulmonary fibrosis, unspecified; R06.00 Dyspnea, unspecified; U09.9 Post COVID-19 condition, unspecified | CPT/HCPCS: 99212 ==

== ENCOUNTER 2021-12-25 08:44 | Outpatient (REF) | payer MEDICARE, MEDICAID, SELFPAY ==
[2021-12-25 10:49] LABS: Hematocrit 36.4 % (37.0-47.0); Hemoglobin 12.1 g/dl (12.0-16.0); Mean Corpuscular HGB Conc 33.2 g/dl (31.0-35.0); Mean Corpuscular Hemoglobin 29.1 pg (27.0-33.0); Mean Corpuscular Volume 87.5 fL (80.0-98.0); Mean Platelet Volume 10.3 fL (9.4-12.3); Platelet Count 219 X10*3/uL (160-400); Red Blood Count 4.16 X10*6/uL (4.20-5.50); Red Cell Distribution Width 13.4 % (11.0-16.0); White Blood Count 8.5 X10*3/uL (4.8-10.8)
[2021-12-25 11:01] LABS: Estimated Average Glucose 223 mg/dL; Hemoglobin A1c % 9.4 %
[2021-12-25 11:23] LABS: Anion Gap 14 (12-20); Blood Urea Nitrogen 13 mg/dL (9-16); Calcium 9.6 mg/dL (8.4-10.2); Carbon Dioxide 28 mmol/L (22-29); Chloride 101 mmol/L (96-108); Estimated Glomerular Filt Rate > 60; Glucose Random 140 mg/dL (60-115); Potassium 4.4 mmol/L (3.3-5.1); Sodium 139 mmol/L (135-145)
[2021-12-25 11:31] LABS: B Type Natriuretic Peptide 314 pg/mL (<100)
== END 2021-12-25 08:45 | disposition home or self-care (01) ==
LOC: HO.LAB 08:44
PROVIDERS: PCP Registered Nurse; Visit Provider Internal Medicine Cardiovascular Disease
DX: R06.02 Shortness of breath (principal); E11.9 Type 2 diabetes mellitus without complications
CPT/HCPCS: 36415; 80048; 83036; 83880; 85027; 85610; 93005; 99202

== ENCOUNTER 2021-12-27 07:52 | Outpatient (REF) | payer MEDICARE, MEDICAID, SELFPAY ==
--- NOTE | ~2021-12-27 | CT_ITS ---
EXAMINATION: CT CHEST WITHOUT CONTRAST CLINICAL INFORMATION: Pulmonary fibrosis COMPARISON: Previous chest x-ray July 2021 TECHNIQUE: Multidetector volumetric CT imaging of the chest was done. Axial MIP volume rendering provided. Sagittal and coronal reformatted images were obtained. This CT examination was performed using dose optimization techniques as appropriate, variously including the following: *Automated exposure control *Adjustment of mA and/or kV according to patient size (this includes techniques or standardized protocols for targeted exams where dose is matched to indication/reason for exam; i.e. extremities or head) *Use of iterative reconstruction technique DLP: 195 mGy-cm FINDINGS: LUNGS: There is a 2 mm peripheral or subpleural left upper lobe nodule adjacent to the fissure axial image 46 series 8 probably representing a subpleural lymph node. There is a 6 mm calcified left lower lobe nodule axial image 102 series 8. Evaluation of the lungs limited due to respiratory motion artifact. There is subsegmental atelectasis at the lung bases. No definite evidence of interstitial lung disease is seen. MEDIASTINUM: The heart is enlarged. No pericardial effusion. Mild coronary artery and aortic valve calcification. No enlarged hilar or mediastinal lymph nodes. Normal thyroid gland. Normal caliber thoracic aorta. CORONARY ARTERY CALCIFICATION: Mild PLEURA: There is no pleural effusion. No pleural mass or thickening. AXILLA: No lymphadenopathy. UPPER ABDOMEN: Severe atherosclerotic disease. OSSEOUS STRUCTURES: Degenerative changes of the spine. CT/CT chest wo IV con IMPRESSION: Limited exam due to respiratory motion artifact. Subsegmental atelectasis at the lung bases. No definite evidence of interstitial lung disease. 6 mm calcified left lower lobe nodule. 2 mm noncalcified left upper lobe nodule adjacent to the fissure probably representing a subpleural lymph node. According to the UPDATED 2017 Fleischner Society recommendations, the advised follow-up imaging for less than 6 mm nodule: Low risk, no chest CT follow-up and high risk, optional chest CT follow-up in one year. Enlarged heart and atherosclerotic disease. Fleischner guidelines were followed.
== END 2021-12-27 07:53 | disposition home or self-care (01) ==
LOC: HO.CT 07:52
PROVIDERS: Visit Provider Hospitalist
DX: J84.10 Pulmonary fibrosis, unspecified (principal)
CPT/HCPCS: 71250

== ENCOUNTER 2022-01-07 10:01 | Outpatient (REF) | payer MEDICARE, MEDICAID, SELFPAY ==
--- NOTE | 2022-01-07 11:54 | PFT_ITS ---
Forced vital capacity 62%, FEV1 72%, FEV1/FVC ratio is 88. FEF25/75 106% and MVV 57%. Post bronchodilator therapy, there is no change. Total lung capacity 66%. Residual volume 72%. Diffusion capacity 80% CONCLUSION: Moderately severe restrictive pulmonary disorder. No obstructive disorder. No response to bronchodilator therapy. MD ERIN Chappell/RAVINDERL / [id number]
== END 2022-01-07 10:02 | disposition home or self-care (01) ==
LOC: HO.RESP 10:01
PROVIDERS: Visit Provider Hospitalist
DX: J84.10 Pulmonary fibrosis, unspecified (principal)
CPT/HCPCS: 94060; 94727; 94729

== ENCOUNTER → 2022-01-29 13:58 | Outpatient (BNVA) | payer MEDICARE, MEDICAID, SELFPAY | PROVIDERS: PCP Registered Nurse; Referring Provider Registered Nurse; Visit Provider Internal Medicine Cardiovascular Disease | DX: I25.10 Atherosclerotic heart disease of native coronary artery without angina pectoris (principal); E11.9 Type 2 diabetes mellitus without complications; Z79.4 Long term (current) use of insulin; Z79.82 Long term (current) use of aspirin; Z79.899 Other long term (current) drug therapy | CPT/HCPCS: 99212 ==

== ENCOUNTER → 2022-02-03 10:29 | Outpatient (BNVA) | payer MEDICARE, MEDICAID, SELFPAY | PROVIDERS: PCP Registered Nurse; Visit Provider Hospitalist | DX: Z01.811 Encounter for preprocedural respiratory examination (principal); J45.40 Moderate persistent asthma, uncomplicated; R06.00 Dyspnea, unspecified; J98.4 Other disorders of lung | CPT/HCPCS: 99212 ==

== ENCOUNTER → 2022-03-14 08:15 | Outpatient (REF) | payer MEDICARE, MEDICAID, SELFPAY ==
--- NOTE | 2022-03-14 08:21 | CA_ITS ---
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 Study Quality: Fair/Contrast ECG Rhythm: Sinus Conclusions: - 1. Mildly reduced LV ejection fraction of 45-50% with regional wall motion abnormality consistent with underlying coronary artery disease with impaired relaxation filling pattern 2. Mild mitral regurgitation 3. Normal RV systolic pressure 4. No pericardial effusion Findings Procedure Information Contrast agent, definity, is being given per protocol without apparent complications. Left Ventricle Normal left ventricular cavity size. There is normal left ventricular wall thickness. The left ventricular systolic function is mildly decreased. The visually estimated ejection fraction is between 45-50%. Spectral Doppler is indicative of an impaired relaxation filling pattern. E/E prime ratio is between 8 and 15 consistent with indeterminate filling pressures. Wall Motion Rest Echo Findings The inferoseptal wall, inferior wall, the apex, and apical septum segments are hypokinetic. The inferolateral wall is akinetic. All other scored wall segments showed normal motion. Right Ventricle Normal right ventricular cavity size. There is moderately decreased right ventricular systolic function. Atria The left atrium is normal in size. Interatrial shunt cannot be excluded. The right atrium is normal in size. Aortic Valve There is mild calcification of the aortic valve. There is no aortic valve stenosis. There is no aortic valve regurgitation. Mitral Valve There is mild anterior and posterior mitral leaflet thickening. There is mild mitral annular calcification. There is mild mitral valve regurgitation. There is no mitral valve stenosis. Pulmonic Valve The pulmonic valve was not well visualized. Tricuspid Valve Likely normal tricuspid valve structure and function. There is trace tricuspid valve regurgitation. The right ventricular systolic pressure is normal. The right ventricular systolic pressure is 22 mmHg. Normal right atrial pressure. There is no evidence of pulmonary hypertension. Great Vessels All visible segments of the aorta are normal in size. The pulmonary artery was not well visualized. Venous The inferior vena cava is normal in size and collapses greater than 50% with inspiration. Pericardium/Pleural There is no evidence of pericardial effusion. Prior Study Comparison Changes noted compared to prior study dated: 11/18/2021. LV systolic function is marginally reduced Measurements 2D Linear Measurements IVSd: 0.97 0.6-0.9/0.6-1.0 cm LVIDd: 4.87 3.9-5.3/4.2-5.9 cm LVIDd Index: 3.04 2.4-3.2/2.2-3.1 cm/m2 LVIDs: 4.23 2.0-3.6 cm LVPWd: 1.16 0.7-1.1 cm LA Diam: 3.00 2.7-3.8/3.0-4.0 cm LAIDs Index: 1.88 1.5-2.3 cm/m2 LV Mass: 236.75 67-162/88-224 g LV Mass Index: 147.97 43-95/49-115 g/m2 LVOT Diam: 1.80 3.0+(-)1.3 cm 2D Systolic Function EF 4C: 29.30 >55% EF 2C: 57.40 >55% EF BiP: 45.30 >55% Mitral Valve MV Pk E: 0.87 MV PK A: 0.93 MV Decel Time: 174.00 E/A: 0.90 E'Lateral: 8.68 E'Medial: 4.30 E/E' Med: 20.30 E/E' Lat: 10.10 PHT: 51.00 MVA PHT: 4.31 Decel [place]: 5.01 Aortic Valve AoV Pk Joe: 1.37 AoV Mn Joe: 1.02 AoV VTI: 0.31 AoV Pk Grad: 8.00 Aov Mn Grad: 5.00 MOLLY Cont.VTI: 1.44 LVOT LVOT Pk Joe: 0.86 LVOT Mn Joe: 0.60 LVOT VTI: 0.17 LVOT Pk Grad: 3.00 LVOT Mn Grad: 2.00 LVOT Diam: 1.80 LVOT Area: 2.54 Diastolic Function MV Pk E: 0.87 MV Pk A: 0.93 E/A: 0.90 E'Medial: 4.30 E/E' Med: 20.30 E' Laterial: 8.68 E/E' Lat: 10.10 Right Ventricle TAPSE (mm): 10.10 TVS' Joe: 6.46 Tricuspid Valve TR Pk Joe: 2.16 TR Pk Grad: 19.00 RA Press: 3.00 RVSP: 22.00 Great Vessels Aorta Sinus of Valsalva: 3.30 2.0-3.5 cm Ao Asc: 3.40 2.1-3.4 cm Pulmonary Valve PV Pk Joe: 0.85 Peak PV Grad: 3.00 Updated in Other Vendor System with Status of Final David Lockhart MD electronically signed on 03/15/2022 1:27:58 PM with status of Final
== END ==
LOC: HO.CARD 08:15
PROVIDERS: Visit Provider Internal Medicine Cardiovascular Disease
DX: I25.10 Atherosclerotic heart disease of native coronary artery without angina pectoris (principal); Z95.1 Presence of aortocoronary bypass graft
CPT/HCPCS: 93306; Q9957

== ENCOUNTER → 2022-04-01 12:30 | Outpatient (BNVA) | payer MEDICARE, MEDICAID, SELFPAY | PROVIDERS: PCP Registered Nurse; Referring Provider Registered Nurse; Visit Provider Nurse Practitioner Family | DX: I25.10 Atherosclerotic heart disease of native coronary artery without angina pectoris (principal); I25.5 Ischemic cardiomyopathy; T82.7XXA Infection and inflammatory reaction due to other cardiac and vascular devices, implants and grafts, initial encounter; Z95.1 Presence of aortocoronary bypass graft; Z79.82 Long term (current) use of aspirin; Z79.899 Other long term (current) drug therapy | CPT/HCPCS: 99212 ==

== ENCOUNTER 2022-04-13 16:37 | Emergency (ER) | payer MEDICARE, MEDICAID, SELFPAY ==
--- NOTE | ~2022-04-13 | CT_ITS ---
EXAMINATION: CT ABDOMEN AND PELVIS WITHOUT CONTRAST CLINICAL INFORMATION: Exam pt c back pain and constipation . COMPARISON: No pertinent prior studies are available for comparison. TECHNIQUE: Multidetector volumetric imaging was performed from the superior aspect of the liver through the pubic symphysis without contrast per request. Sagittal and coronal reformatted images were obtained on the technologist workstation. This CT examination was performed using dose optimization techniques as appropriate, variously including the following: *Automated exposure control *Adjustment of mA and/or kV according to patient size (this includes techniques or standardized protocols for targeted exams where dose is matched to indication/reason for exam; i.e. extremities or head) *Use of iterative reconstruction technique DLP: 543 mGy-cm. FINDINGS: LUNG BASES: Small layering left pleural effusion. Patient status post sternotomy. Tiny calcified granulomas at the left base LIVER, GALLBLADDER, BILIARY TREE: The non-contrast liver is normal in size, shape, and attenuation. No focal hepatic lesion or biliary ductal dilatation is present. The gallbladder is unremarkable with no evidence of radiopaque gallstones, gallbladder wall thickening, or obvious pericholecystic inflammatory changes. PANCREAS: Unremarkable. SPLEEN: Unremarkable. ADRENAL GLANDS: Unremarkable. KIDNEYS AND URETERS: The kidneys are normal in size, shape, and attenuation. No hydronephrosis, hydroureter, or calculi seen. No perinephric stranding. BLADDER: Unremarkable. GASTROINTESTINAL TRACT: Colon is redundant with stool and air seen throughout the colon and relatively dense stool in the rectum. I do not appreciate any colonic wall thickening or pericolonic inflammatory change to suggest diverticulitis. No obstructive changes. Normal-appearing appendix in the right lower quadrant. Visualized small bowel grossly unremarkable. Stomach is decompressed and grossly unremarkable ABDOMINAL WALL: Likely injection sites along the lower abdominal wall LYMPHOVASCULAR STRUCTURES: Extensive vascular calcification within the aorta iliac system and visualized lower extremities. PELVIC VISCERA: Unremarkable. OSSEUS STRUCTURES: Degenerative changes in the spine more so at L5/S1 CT/CT abdomen pelvis wo IV con IMPRESSION: Chronic appearing changes as described above. I do not appreciate any acute intra-abdominal process.
[2022-04-13 17:02] VITALS: BP 151/51; PULSE 79; RESP 16; TEMP 36.6; O2SAT 99; BMI 29.5
--- NOTE | 2022-04-13 17:02 | ED.ABDPAIN ---
HPI - Abdominal Pain General Chief Complaint: Abdominal Pain <ANABELLA Muniz - Last Filed: 04/13/22 17:05> Stated Complaint: abdominal issues <ANABELLA Muniz - Last Filed: 04/13/22 17:05> Time Seen by Provider: 04/13/22 17:55 <ANABELLA Muniz - Last Filed: 04/13/22 17:05> Source: patient <Humberto Jordan MD - Last Filed: 04/13/22 19:12> Mode of arrival: ambulatory <Humberto Jordan MD - Last Filed: 04/13/22 19:12> Limitations: no limitations <Humberto Jordan MD - Last Filed: 04/13/22 19:12> History of Present Illness HPI narrative: Patient with History of constipation unable to move his bowel for last 2 days feels bloated feels hard stool in the rectum no nausea vomiting does not feel hungry using Dulcolax and prune juice without much relief <Humberto Jordan MD - Last Filed: 04/13/22 19:12> Related Data Home Medications: Home Medications Medication Instructions Recorded Confirmed atorvastatin 80 mg tablet 80 mg PO DAILY 12/19/21 04/01/22 blood sugar diagnostic (FreeStyle #10 ea 12/19/21 12/25/21 Lite Strips) cholecalciferol (vitamin D3) 25 25 mcg PO DAILY 12/19/21 04/01/22 mcg (1,000 unit) tablet dulaglutide 1.5 mg/0.5 mL 1.5 mg subcut QWEEK 12/19/21 04/01/22 subcutaneous pen injector (Trulicity) furosemide 20 mg tablet 20 mg PO DAILY 12/19/21 04/01/22 hydrochlorothiazide 12.5 mg tablet 12.5 mg PO DAILY 12/19/21 04/01/22 insulin aspart U-100 100 unit/mL 25 unit subcut TID 12/19/21 04/01/22 (3 mL) subcutaneous pen (Novolog FlexPen U-100 Insulin aspart) irbesartan 300 mg tablet 300 mg PO QAM 12/19/21 04/01/22 levothyroxine 88 mcg tablet 88 mcg PO DAILY 12/19/21 04/01/22 metoprolol succinate 25 mg 25 mg PO BID 12/19/21 04/01/22 tablet,extended release 24 hr insulin detemir U-100 100 unit/mL 50 unit subcut DAILY 12/25/21 04/01/22 (3 mL) subcutaneous pen (Levemir FlexTouch U-100 Insulin) Previous Rx's Medication Instructions Recorded albuterol sulfate 0.63 mg/3 mL 0.63 mg (3 mL) inhalation QID PRN 03/06/21 solution for nebulization shortness of breath or wheezing #75 mL albuterol sulfate 90 mcg/actuation 1 inh inhalation QID PRN shortness 03/06/21 aerosol inhaler of breath or wheezing #8.5 grams nebulizers (AeroEclipse II #1 ea 03/06/21 Nebulizer) methylcellulose (laxative) 500 mg 500 mg PO BID #60 tabs 05/22/21 tablet (Citrucel) famotidine 20 mg tablet 20 mg PO DAILY #90 tabs 11/05/21 diclofenac sodium 75 mg 75 mg PO BID #60 tabs 01/14/22 tablet,delayed release aspirin 81 mg tablet,delayed 81 mg PO DAILY #30 tabs 01/20/22 release doxycycline hyclate 100 mg tablet 100 mg PO BID 7 days #14 tabs 04/01/22 polyethylene glycol 3350 17 17 g PO DAILY #510 grams 04/13/22 gram/dose oral powder (Miralax) <ANABELLA Muniz - Last Filed: 04/13/22 17:05> Allergies/Adverse Reactions: Allergies Allergy/AdvReac Type Severity Reaction Status Date / Time No Known Allergies Allergy Verified 02/03/22 10:41 <ANABELLA Muniz - Last Filed: 04/13/22 17:05> Review of Systems Review of Systems Yes all other systems are reviewed and are negative <Humberto Jordan MD - Last Filed: 04/13/22 19:12> PMFSH Past Medical History Medical History: Medical History Asthma Chronic restrictive lung disease Diabetes Dyspnea GERD (gastroesophageal reflux disease) Hyperlipidemia Hypertension Osteoarthritis [id number] syndrome Pulmonary fibrosis <ANABELLA Muniz - Last Filed: 04/13/22 17:05> Surgical History: Surgical History Previous section <ANABELLA Muniz - Last Filed: 04/13/22 17:05> Family History Family History: Family History Father Diabetes Hypertension Mother Colon cancer Hypotension Osteogenesis imperfecta <ANABELLA Muniz - Last Filed: 04/13/22 17:05> Social History Social History: Social History Alcohol intake: never Patient Tobacco Use Status: Never used Tobacco Advance Directives: No Advance Directives Information Provided: Yes <ANABELLA Muniz - Last Filed: 04/13/22 17:05> Physical Exam ED Vital Signs: Vital Signs - 24 hr 04/13/22 17:02 Temperature 97.8 F Pulse Rate 79 Respiratory Rate 16 Blood Pressure 151/51 H Pulse Oximetry 99 Oxygen Delivery Method Room Air BMI result Body Mass Index 29.5 <ANABELLA Muniz - Last Filed: 04/13/22 17:05> Vital Signs - 24 hr 04/13/22 17:02 Temperature 97.8 F Pulse Rate 79 Respiratory Rate 16 Blood Pressure 151/51 H Pulse Oximetry 99 Oxygen Delivery Method Room Air BMI result Body Mass Index 29.5 <Humberto Jordan MD - Last Filed: 04/13/22 19:12> Appearance: Alert. Oriented X3. No acute distress. Eyes: PERRLA, No Nystagmus ENT: Pharynx normal. Oral Mucosa moist Neck: Normal inspection. Neck supple. CVS: Normal heart rate and rhythm. Pulses normal. Respiratory: No respiratory distress. Equal air entry bilateral, no wheezing/rales/rhonchi Abdomen: Soft and nontender. Gaseous distension Bowel sounds are present, no mass palpable, no CVA tenderness rectal: Hard stool in the rectum Skin: Skin warm and dry. Normal skin color. Normal skin turgor. Extremities: No lower extremity edema. No calf tenderness Neuro: Oriented X 3. No motor deficit. No sensory deficit.No cerebellar signs , cranial nerves II-XII intact <Humberto Jordan MD - Last Filed: 04/13/22 19:12> Course Course Course Narrative: RME-17:02PM - 66yoF c PMHX of diabetes, asthma, GERD, hyperlipidemia, CAD status post CABG x3, cardiomyopathy, pulmonary fibrosis and osteoarthritis who is Occitan-speaking presenting to the ER with complaints of constipation lower back pain. Reports that she has not had a bowel movement in 2 days. She reports that she has not been able to eat today. She has even tried to manually disimpact herself with a glove on. Her at bedside reports that she had heart surgery February of 2022. She denies any other symptoms complaints or concerns at this time. Plan: Labs, UA, CT scan abdomen pelvis without IV contrast ordered at this time. Patient is stable to go back to the waiting room to be evaluated in the ED. <ANABELLA Muniz - Last Filed: 04/13/22 17:05> Medical Decision Making Medical Decision Making MDM Narrative: CT scan of the abdomen showed stool in the rectum, Manual disimpaction was done , but had only soft stool milk a magnesia was given will discharge patient home <Humberto Jordan MD - Last Filed: 04/13/22 19:12> Lab Data Result Diagrams: 04/13/22 18:04 04/13/22 18:04 <ANABELLA Muniz - Last Filed: 04/13/22 17:05> Labs: Lab Results 04/13/22 04/13/22 04/13/22 Range/Units 18:04 18:04 18:04 WBC 12.8 H (4.8-10.8) X10*3/uL RBC 3.87 L (4.20-5.50) X10*6/uL Hgb 10.7 L (12.0-16.0) g/dl Hct 33.3 L (37.0-47.0) % MCV 86.0 (80.0-98.0) fL MCH 27.6 (27.0-33.0) pg MCHC 32.1 (31.0-35.0) g/dl RDW 13.9 (11.0-16.0) % Plt Count 231 (160-400) X10*3/uL MPV 10.1 (9.4-12.3) fL Immature Gran % (Auto) 0.3 (0.0-0.4) % Neut % (Auto) 85.0 H (45-73) % Lymph % (Auto) 10.6 L (20-40) % [place] % (Auto) 4.0 (2-11) % Eos % (Auto) 0.0 (0-4) % Baso % (Auto) 0.1 (0-2) % Lymph # (Auto) 1.4 (1.2-4.9) X10*3/uL [place] # (Auto) 0.5 (0.1-1.2) X10*3/uL Eos # (Auto) 0.0 (0.0-0.4) X10*3/uL Baso # (Auto) 0.0 (0.0-0.2) X10*3/uL Abs Immat Gran (auto) 0.04 H (0.00-0.03) X10*3/uL Absolute Neuts (auto) 10.9 H (2.0-8.3) x10*3/uL Absolute Nucleated RBC 0.000 (0.0-0.012) X10*3/uL Nucleated RBC % (auto) 0.0 (0.0-0.2) /100WBC PT 12.2 (10.0-13.1) SEC INR 1.1 (0.9-1.1) Sodium 139 (135-145) mmol/L Potassium 4.7 (3.3-5.1) mmol/L Chloride 103 (96-108) mmol/L Carbon Dioxide 27 (22-29) mmol/L Anion Gap 14 (12-20) BUN 20 H (9-16) mg/dL Creatinine 0.80 (0.5-1.4) mg/dL Estim Creat Clear Calc 55.7 Estimated GFR > 60 Random Glucose 214 H (60-115) mg/dL Calcium 9.8 (8.4-10.2) mg/dL Magnesium 1.9 (1.6-2.6) mg/dL Total Bilirubin 0.6 (0.0-1.0) mg/dL AST 31 (5-31) U/L ALT 24 (0-31) U/L Alkaline Phosphatase 66 (39-117) U/L Total Protein 8.1 H (6.5-8.0) g/dL Albumin 4.3 (3.5-5.0) g/dL TSH (0.32-4.0) uIU/mL Influenza Type A (PCR) (Negative) Influenza Type B (PCR) (Negative) RSV RNA Qual (PCR) (Negative) SARS-CoV-2 RNA (RT-PCR) (Negative) 04/13/22 04/13/22 Range/Units 18:04 18:04 WBC (4.8-10.8) X10*3/uL RBC (4.20-5.50) X10*6/uL Hgb (12.0-16.0) g/dl Hct (37.0-47.0) % MCV (80.0-98.0) fL MCH (27.0-33.0) pg MCHC (31.0-35.0) g/dl RDW (11.0-16.0) % Plt Count (160-400) X10*3/uL MPV (9.4-12.3) fL Immature Gran % (Auto) (0.0-0.4) % Neut % (Auto) (45-73) % Lymph % (Auto) (20-40) % [place] % (Auto) (2-11) % Eos % (Auto) (0-4) % Baso % (Auto) (0-2) % Lymph # (Auto) (1.2-4.9) X10*3/uL [place] # (Auto) (0.1-1.2) X10*3/uL Eos # (Auto) (0.0-0.4) X10*3/uL Baso # (Auto) (0.0-0.2) X10*3/uL Abs Immat Gran (auto) (0.00-0.03) X10*3/uL Absolute Neuts (auto) (2.0-8.3) x10*3/uL Absolute Nucleated RBC (0.0-0.012) X10*3/uL Nucleated RBC % (auto) (0.0-0.2) /100WBC PT (10.0-13.1) SEC INR (0.9-1.1) Sodium (135-145) mmol/L Potassium (3.3-5.1) mmol/L Chloride (96-108) mmol/L Carbon Dioxide (22-29) mmol/L Anion Gap (12-20) BUN (9-16) mg/dL Creatinine (0.5-1.4) mg/dL Estim Creat Clear Calc Estimated GFR Random Glucose (60-115) mg/dL Calcium (8.4-10.2) mg/dL Magnesium (1.6-2.6) mg/dL Total Bilirubin (0.0-1.0) mg/dL AST (5-31) U/L ALT (0-31) U/L Alkaline Phosphatase (39-117) U/L Total Protein (6.5-8.0) g/dL Albumin (3.5-5.0) g/dL TSH 1.11 (0.32-4.0) uIU/mL Influenza Type A (PCR) NEGATIVE (Negative) Influenza Type B (PCR) NEGATIVE (Negative) RSV RNA Qual (PCR) NEGATIVE (Negative) SARS-CoV-2 RNA (RT-PCR) NEGATIVE (Negative) <ANABELLA Muniz - Last Filed: 04/13/22 17:05> Lab Results 04/13/22 04/13/22 04/13/22 Range/Units 18:04 18:04 18:04 WBC 12.8 H (4.8-10.8) X10*3/uL RBC 3.87 L (4.20-5.50) X10*6/uL Hgb 10.7 L (12.0-16.0) g/dl Hct 33.3 L (37.0-47.0) % MCV 86.0 (80.0-98.0) fL MCH 27.6 (27.0-33.0) pg MCHC 32.1 (31.0-35.0) g/dl RDW 13.9 (11.0-16.0) % Plt Count 231 (160-400) X10*3/uL MPV 10.1 (9.4-12.3) fL Immature Gran % (Auto) 0.3 (0.0-0.4) % Neut % (Auto) 85.0 H (45-73) % Lymph % (Auto) 10.6 L (20-40) % [place] % (Auto) 4.0 (2-11) % Eos % (Auto) 0.0 (0-4) % Baso % (Auto) 0.1 (0-2) % Lymph # (Auto) 1.4 (1.2-4.9) X10*3/uL [place] # (Auto) 0.5 (0.1-1.2) X10*3/uL Eos # (Auto) 0.0 (0.0-0.4) X10*3/uL Baso # (Auto) 0.0 (0.0-0.2) X10*3/uL Abs Immat Gran (auto) 0.04 H (0.00-0.03) X10*3/uL Absolute Neuts (auto) 10.9 H (2.0-8.3) x10*3/uL Absolute Nucleated RBC 0.000 (0.0-0.012) X10*3/uL Nucleated RBC % (auto) 0.0 (0.0-0.2) /100WBC PT 12.2 (10.0-13.1) SEC INR 1.1 (0.9-1.1) Sodium 139 (135-145) mmol/L Potassium 4.7 (3.3-5.1) mmol/L Chloride 103 (96-108) mmol/L Carbon Dioxide 27 (22-29) mmol/L Anion Gap 14 (12-20) BUN 20 H (9-16) mg/dL Creatinine 0.80 (0.5-1.4) mg/dL Estim Creat Clear Calc 55.7 Estimated GFR > 60 Random Glucose 214 H (60-115) mg/dL Calcium 9.8 (8.4-10.2) mg/dL Magnesium 1.9 (1.6-2.6) mg/dL Total Bilirubin 0.6 (0.0-1.0) mg/dL AST 31 (5-31) U/L ALT 24 (0-31) U/L Alkaline Phosphatase 66 (39-117) U/L Total Protein 8.1 H (6.5-8.0) g/dL Albumin 4.3 (3.5-5.0) g/dL TSH (0.32-4.0) uIU/mL Influenza Type A (PCR) (Negative) Influenza Type B (PCR) (Negative) RSV RNA Qual (PCR) (Negative) SARS-CoV-2 RNA (RT-PCR) (Negative) 04/13/22 04/13/22 Range/Units 18:04 18:04 WBC (4.8-10.8) X10*3/uL RBC (4.20-5.50) X10*6/uL Hgb (12.0-16.0) g/dl Hct (37.0-47.0) % MCV (80.0-98.0) fL MCH (27.0-33.0) pg MCHC (31.0-35.0) g/dl RDW (11.0-16.0) % Plt Count (160-400) X10*3/uL MPV (9.4-12.3) fL Immature Gran % (Auto) (0.0-0.4) % Neut % (Auto) (45-73) % Lymph % (Auto) (20-40) % [place] % (Auto) (2-11) % Eos % (Auto) (0-4) % Baso % (Auto) (0-2) % Lymph # (Auto) (1.2-4.9) X10*3/uL [place] # (Auto) (0.1-1.2) X10*3/uL Eos # (Auto) (0.0-0.4) X10*3/uL Baso # (Auto) (0.0-0.2) X10*3/uL Abs Immat Gran (auto) (0.00-0.03) X10*3/uL Absolute Neuts (auto) (2.0-8.3) x10*3/uL Absolute Nucleated RBC (0.0-0.012) X10*3/uL Nucleated RBC % (auto) (0.0-0.2) /100WBC PT (10.0-13.1) SEC INR (0.9-1.1) Sodium (135-145) mmol/L Potassium (3.3-5.1) mmol/L Chloride (96-108) mmol/L Carbon Dioxide (22-29) mmol/L Anion Gap (12-20) BUN (9-16) mg/dL Creatinine (0.5-1.4) mg/dL Estim Creat Clear Calc Estimated GFR Random Glucose (60-115) mg/dL Calcium (8.4-10.2) mg/dL Magnesium (1.6-2.6) mg/dL Total Bilirubin (0.0-1.0) mg/dL AST (5-31) U/L ALT (0-31) U/L Alkaline Phosphatase (39-117) U/L Total Protein (6.5-8.0) g/dL Albumin (3.5-5.0) g/dL TSH 1.11 (0.32-4.0) uIU/mL Influenza Type A (PCR) NEGATIVE (Negative) Influenza Type B (PCR) NEGATIVE (Negative) RSV RNA Qual (PCR) NEGATIVE (Negative) SARS-CoV-2 RNA (RT-PCR) NEGATIVE (Negative) <Humberto Jordan MD - Last Filed: 04/13/22 19:12> Discharge Plan Discharge Clinical Impression: Constipation <ANABELLA Muniz - Last Filed: 04/13/22 17:05> Patient Disposition: Home, Self-Care <ANABELLA Muniz - Last Filed: 04/13/22 17:05> Instructions: Constipation (ED) <ANABELLA Muniz - Last Filed: 04/13/22 17:05> Additional Instructions: Drink plenty of fluids Continue Dulcolax and start taking MiraLax for constipation Follow with PCP <ANABELLA Muniz - Last Filed: 04/13/22 17:05> Prescriptions: New polyethylene glycol 3350 [Miralax] 17 gram/dose powder 17 g PO DAILY Qty: 510 0RF No Action famotidine 20 mg tablet 20 mg PO DAILY Qty: 90 1RF diclofenac sodium 75 mg tablet,delayed release (DR/EC) 75 mg PO BID Qty: 60 2RF aspirin 81 mg tablet,delayed release (DR/EC) 81 mg PO DAILY Qty: 30 5RF (DME) AeroEclipse II Nebulizer Misc See Rx Instructions .ROUTE .MEDSUPPLY Qty: 1 0RF Rx Instructions: As directed albuterol sulfate 0.63 mg/3 mL solution for nebulization 0.63 mg inhalation QID PRN (Reason: shortness of breath or wheezing) Qty: 75 0RF albuterol sulfate 90 mcg/actuation HFA aerosol inhaler 1 inh inhalation QID PRN (Reason: shortness of breath or wheezing) Qty: 8.5 0RF Citrucel 500 mg tablet 500 mg PO BID Qty: 60 5RF hydrochlorothiazide 12.5 mg tablet 12.5 mg PO DAILY Trulicity 1.5 mg/0.5 mL pen injector 1.5 mg subcut QWEEK insulin aspart U-100 [Novolog FlexPen U-100 Insulin] 100 unit/mL (3 mL) insulin pen 25 unit subcut TID (DME) FreeStyle Lite Strips Strip See Rx Instructions .ROUTE TID Qty: 10 Rx Instructions: As directed furosemide 20 mg tablet 20 mg PO DAILY atorvastatin 80 mg tablet 80 mg PO DAILY irbesartan 300 mg tablet 300 mg PO QAM levothyroxine 88 mcg tablet 88 mcg PO DAILY metoprolol succinate 25 mg tablet extended release 24 hr 25 mg PO BID cholecalciferol (vitamin D3) 25 mcg (1,000 unit) tablet 25 mcg PO DAILY Levemir FlexTouch U-100 Insuln 100 unit/mL (3 mL) insulin pen 50 unit subcut DAILY doxycycline hyclate 100 mg tablet 100 mg PO BID 7 Days Qty: 14 0RF <ANABELLA Muniz - Last Filed: 04/13/22 17:05>
[2022-04-13 18:10] LABS: MANUAL DIFF FLAG NO
[2022-04-13 18:12] LABS: Basophils Percent Auto 0.1 % (0-2); Hematocrit 33.3 % (37.0-47.0); Hemoglobin 10.7 g/dl (12.0-16.0); Imm Gran Abs Auto 0.04 X10*3/uL (0.00-0.03); Imm Gran Pct Auto 0.3 % (0.0-0.4); Lymphocytes Absolute Auto 1.4 X10*3/uL (1.2-4.9); Lymphocytes Percent Auto 10.6 % (20-40); Mean Corpuscular HGB Conc 32.1 g/dl (31.0-35.0); Mean Corpuscular Hemoglobin 27.6 pg (27.0-33.0); Mean Platelet Volume 10.1 fL (9.4-12.3); Monocytes Absolute Auto 0.5 X10*3/uL (0.1-1.2); Neutrophils Absolute Auto 10.9 x10*3/uL (2.0-8.3); Platelet Count 231 X10*3/uL (160-400); Red Blood Count 3.87 X10*6/uL (4.20-5.50); Red Cell Distribution Width 13.9 % (11.0-16.0); White Blood Count 12.8 X10*3/uL (4.8-10.8)
[2022-04-13 18:15] LABS: INTERNATIONAL NORM RATIO 1.1 (0.9-1.1); Prothrombin Time 12.2 SEC (10.0-13.1)
[2022-04-13 18:28] LABS: Alanine Aminotransferase 24 U/L (0-31); Albumin Level 4.3 g/dL (3.5-5.0); Alkaline Phosphatase 66 U/L (39-117); Anion Gap 14 (12-20); Aspartate Amino Transferase 31 U/L (5-31); Bilirubin Total 0.6 mg/dL (0.0-1.0); Blood Urea Nitrogen 20 mg/dL (9-16); Calcium 9.8 mg/dL (8.4-10.2); Carbon Dioxide 27 mmol/L (22-29); Chloride 103 mmol/L (96-108); Creatinine Clr Calc Pharmacy 55.7; Estimated Glomerular Filt Rate > 60; Glucose Random 214 mg/dL (60-115); Magnesium 1.9 mg/dL (1.6-2.6); Potassium 4.7 mmol/L (3.3-5.1); Sodium 139 mmol/L (135-145); Total Protein 8.1 g/dL (6.5-8.0)
[2022-04-13 18:47] LABS: Influenza A PCR NEGATIVE (Negative); Influenza B PCR NEGATIVE (Negative); Resp Syncy Virus RNA Qual PCR NEGATIVE (Negative); SARS COV2 PCR INHOUSE NEGATIVE (Negative)
[2022-04-13 18:50] LABS: TSH reflex Free T4 1.11 uIU/mL (0.32-4.0)
--- NOTE | 2022-04-13 19:12 | PC.NURSE ---
Assumed care of pt. at 1900. Pt. was in bathroom attempting to have a bowel movement after manual attempt at disimpaction by MD. Pt. reports only having streaks and still being unable to have complete BM. Per MD, stool is soft and ready to come out. Will try milk of magnesia and d/c home with continued miralax.
[2022-04-13] MEDS: Milk of Magnesia 30 ML ORAL.SUSP PO (19:19)
== END 2022-04-13 19:33 | disposition home or self-care (01) ==
PROVIDERS: Physician Assistant Medical; Emergency Provider Internal Medicine
DX: K59.00 Constipation, unspecified (principal); Z20.828 Contact with and (suspected) exposure to other viral communicable diseases; Z20.822 Contact with and (suspected) exposure to COVID-19; Z79.899 Other long term (current) drug therapy
CPT/HCPCS: 0241U; 36415; 74176; 80053; 83735; 84443; 85025; 85610; 99282; 99283

== ENCOUNTER → 2022-07-01 10:42 | Outpatient (BNVA) | payer MEDICARE, MEDICAID, SELFPAY | PROVIDERS: Visit Provider Internal Medicine Cardiovascular Disease | DX: I25.10 Atherosclerotic heart disease of native coronary artery without angina pectoris (principal); I25.5 Ischemic cardiomyopathy | CPT/HCPCS: 93005; 99212 ==

== ENCOUNTER 2022-07-05 07:38 | Outpatient (REF) | payer MEDICARE, MEDICAID, SELFPAY ==
[2022-07-05 08:22] LABS: Hematocrit 34.6 % (37.0-47.0); Hemoglobin 11.2 g/dl (12.0-16.0); Mean Corpuscular HGB Conc 32.4 g/dl (31.0-35.0); Mean Corpuscular Hemoglobin 27.3 pg (27.0-33.0); Mean Corpuscular Volume 84.4 fL (80.0-98.0); Mean Platelet Volume 10.4 fL (9.4-12.3); Platelet Count 220 X10*3/uL (160-400); Red Cell Distribution Width 15.2 % (11.0-16.0); White Blood Count 7.5 X10*3/uL (4.8-10.8)
[2022-07-05 08:40] LABS: B Type Natriuretic Peptide 110 pg/mL (<100)
[2022-07-05 09:12] LABS: Anion Gap 13 (12-20); Blood Urea Nitrogen 19 mg/dL (9-16); Calcium 9.6 mg/dL (8.4-10.2); Carbon Dioxide 27 mmol/L (22-29); Chloride 105 mmol/L (96-108); Cholesterol 102 mg/dL; Estimated Glomerular Filt Rate > 60; Glucose Random 172 mg/dL (60-115); HDL Cholesterol 37 mg/dL; LDL Cholesterol Calculated 46 mg/dl; Potassium 5.1 mmol/L (3.3-5.1); Sodium 140 mmol/L (135-145); Triglycerides 99 mg/dL
== END 2022-07-05 07:39 | disposition home or self-care (01) ==
LOC: HO.LAB 07:38
PROVIDERS: Visit Provider Internal Medicine Cardiovascular Disease
DX: I25.10 Atherosclerotic heart disease of native coronary artery without angina pectoris (principal)
CPT/HCPCS: 36415; 80048; 80061; 83880; 85027

== ENCOUNTER → 2022-08-01 10:08 | Outpatient (BNVA) | payer MEDICARE, MEDICAID, SELFPAY | PROVIDERS: Visit Provider Hospitalist | DX: Z01.811 Encounter for preprocedural respiratory examination (principal); J45.40 Moderate persistent asthma, uncomplicated; R06.00 Dyspnea, unspecified; J98.4 Other disorders of lung; R91.8 Other nonspecific abnormal finding of lung field | CPT/HCPCS: 99212 ==

== ENCOUNTER 2022-08-04 07:50 | Day surgery (SDC) | payer MEDICARE, MEDICAID, SELFPAY ==
[2022-07-31 11:45] VITALS: BMI 29.7
--- NOTE | 2022-08-01 11:59 | HO.ANESPROP2 ---
HPI - Anesthesia Eval Consult details Narrative: 67yo F for Upper Endoscopy and Colonoscopy Cardiac optimiezed (3xCABG 02/2022, last cardiac eval 06/2022) Pulmo optimized (eval 08/01/22) [facility] Active Problems Active Problems: All Active Problems (Updated 07/31/22 @ 11:20 by Elena Blair RN) Primary osteoarthritis of left knee (Acute) Lumbar radiculopathy (Acute) Osteoarthritis of right knee (Acute) RUQ pain (Acute) Chronic diarrhea (Acute) SOB (shortness of breath) on exertion (Acute) CAD (coronary artery disease) (Acute) Pre-op chest exam (Acute) Ischemic cardiomyopathy (Acute) Encounter for postoperative wound check (Acute) Chronic restrictive lung disease (Acute) 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 (Acute) Dyspnea (Acute) Pulmonary fibrosis (Acute) Osteoarthritis (Acute) Hyperlipidemia (Acute) GERD (gastroesophageal reflux disease) (Acute) Diabetes (Acute) Asthma (Acute) Past Medical History Medical History Anxiety and depression Asthma Chronic restrictive lung disease Diabetes Dyspnea GERD (gastroesophageal reflux disease) Hyperlipidemia Hypertension Hypothyroid On beta rito at home Osteoarthritis [id number] syndrome Pulmonary fibrosis Pulmonary nodules Family History Family History Father Diabetes Hypertension Mother Colon cancer Hypotension Osteogenesis imperfecta Surgical History Surgical History History of esophagogastroduodenoscopy (EGD) History of tubal ligation Hx of colonoscopy Hx of left cataract extraction Hx of right cataract extraction Previous section S/P CABG x 3 Social History Social History Alcohol intake: never Patient Tobacco Use Status: Never used Tobacco Are you DNR?: No Advance Directives: No Advance Directives Information Provided: Yes Advance Directives on File: No Recently lost weight without trying: No Eating poorly because of decreased appetite: No Nutrition Risks: No Nutritional Risk Meds Allergies Allergy/AdvReac Type Severity Reaction Status Date / Time No Known Allergies Allergy Verified 08/01/22 10:16 Home Medications Medication Instructions Recorded Confirmed Last Taken Type atorvastatin 80 mg tablet 80 mg PO DAILY 12/19/21 07/31/22 Unknown History blood sugar diagnostic (FreeStyle #10 ea 12/19/21 07/01/22 Unknown History Lite Strips) cholecalciferol (vitamin D3) 25 25 mcg PO DAILY 12/19/21 07/31/22 Unknown History mcg (1,000 unit) tablet dulaglutide 1.5 mg/0.5 mL 1.5 mg subcut QWEEK 12/19/21 07/31/22 Unknown History subcutaneous pen injector (Trulicity) hydrochlorothiazide 12.5 mg tablet 12.5 mg PO DAILY 12/19/21 07/31/22 Unknown History insulin aspart U-100 100 unit/mL 25 unit subcut TID 12/19/21 07/31/22 Unknown History (3 mL) subcutaneous pen (Novolog FlexPen U-100 Insulin aspart) irbesartan 300 mg tablet 300 mg PO QAM 12/19/21 08/04/22 08/04/22 History levothyroxine 88 mcg tablet 88 mcg PO DAILY 12/19/21 08/04/22 08/04/22 History insulin detemir U-100 100 unit/mL 50 unit subcut BEDTIME 12/25/21 07/31/22 Unknown History (3 mL) subcutaneous pen (Levemir FlexTouch U-100 Insulin) metoprolol succinate 25 mg 25 mg PO DAILY 07/01/22 08/04/22 08/04/22 History tablet,extended release 24 hr Exam Exam Date and Time: August 01, 2022 1159 Height,Weight and Vital Signs: Height 4 ft 11 in Weight 66.728 kg Pertinent Lab Results Pertinent Lab Results: Laboratory Tests 07/05/22 07/05/22 07:51 07:51 WBC 7.5 Hgb 11.2 L Hct 34.6 L Plt Count 220 Sodium 140 Potassium 5.1 Chloride 105 Carbon Dioxide 27 BUN 19 H Creatinine 0.79 Narrative Narrative: EKG 06/2022 Normal sinus rhythm with isolated PVC with right bundle-branch block with Q-wave in lead 3 suggestive of inferior infarct ECHO 03/2022 Conclusions: - 1. Mildly reduced LV ejection fraction of 45-50% with regional wall? motion abnormality consistent with underlying coronary ? ? artery disease with impaired relaxation filling pattern? 2. Mild mitral regurgitation ? 3. Normal RV systolic pressure ? 4. No pericardial effusion ? ?? Assessment and Plan Assessment Anesthesia Assessment: Chart Reviewed
--- NOTE | 2022-08-04 08:32 | HO.ANESPROP2 ---
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) Dyspnea (Acute) Pulmonary fibrosis (Acute) Osteoarthritis (Acute) Hyperlipidemia (Acute) GERD (gastroesophageal reflux disease) (Acute) Diabetes (Acute) Asthma (Acute) Past Medical History Medical History Anxiety and depression Asthma Chronic restrictive lung disease Diabetes Dyspnea GERD (gastroesophageal reflux disease) Hyperlipidemia Hypertension Hypothyroid On beta rito at home Osteoarthritis [id number] syndrome Pulmonary fibrosis Pulmonary nodules Family History Family History Father Diabetes Hypertension Mother Colon cancer Hypotension Osteogenesis imperfecta Surgical History Surgical History History of esophagogastroduodenoscopy (EGD) History of tubal ligation Hx of colonoscopy Hx of left cataract extraction Hx of right cataract extraction Previous section S/P CABG x 3 Social History Social History Alcohol intake: never Patient Tobacco Use Status: Never used Tobacco Are you DNR?: No Advance Directives: No Advance Directives Information Provided: Yes Advance Directives on File: No Recently lost weight without trying: No Eating poorly because of decreased appetite: No Nutrition Risks: No Nutritional Risk Meds Allergies Allergy/AdvReac Type Severity Reaction Status Date / Time No Known Allergies Allergy Verified 08/01/22 10:16 Home Medications Medication Instructions Recorded Confirmed Last Taken Type atorvastatin 80 mg tablet 80 mg PO DAILY 12/19/21 07/31/22 Unknown History blood sugar diagnostic (FreeStyle #10 ea 12/19/21 07/01/22 Unknown History Lite Strips) cholecalciferol (vitamin D3) 25 25 mcg PO DAILY 12/19/21 07/31/22 Unknown History mcg (1,000 unit) tablet dulaglutide 1.5 mg/0.5 mL 1.5 mg subcut QWEEK 12/19/21 07/31/22 Unknown History subcutaneous pen injector (Trulicity) hydrochlorothiazide 12.5 mg tablet 12.5 mg PO DAILY 12/19/21 07/31/22 Unknown History insulin aspart U-100 100 unit/mL 25 unit subcut TID 12/19/21 07/31/22 Unknown History (3 mL) subcutaneous pen (Novolog FlexPen U-100 Insulin aspart) irbesartan 300 mg tablet 300 mg PO QAM 12/19/21 08/04/22 08/04/22 History levothyroxine 88 mcg tablet 88 mcg PO DAILY 12/19/21 08/04/22 08/04/22 History insulin detemir U-100 100 unit/mL 50 unit subcut BEDTIME 12/25/21 07/31/22 Unknown History (3 mL) subcutaneous pen (Levemir FlexTouch U-100 Insulin) metoprolol succinate 25 mg 25 mg PO DAILY 07/01/22 08/04/22 08/04/22 History tablet,extended release 24 hr Exam Exam Date and Time: August 04, 2022 0832 Height,Weight and Vital Signs: Height 4 ft 11 in Weight 66.728 kg Airway Mallampati Class: III TM Dist: >3cm Neck ROM: Full Heart: RRR Lungs: CTA Assessment and Plan Final Anesthetic Review Final Preanesthetic Review: Meds/Allgs Chart Reviewed, Consent Obtained/Reviewed and Anes Risks/Benef Reviewed Patient Risk: Intermediate Procedure Risk: Low Anesthetic Plan Anesthetic Plan: MAC: Disposition: Standard PACU
[2022-08-04 09:19] VITALS: BMI 29.3
[2022-08-04 09:37] VITALS: BP 163/51; PULSE 62; RESP 16; TEMP 36.1; O2SAT 98
[2022-08-04 09:47] LABS: Glucose, Whole Blood 250 mg/dL (60-115)
[2022-08-04] MEDS: Lactated Ringers 1,000 ML 50 ML IVCONT (09:50)
--- NOTE | 2022-08-04 10:28 | MHC.SHP ---
Pre-Procedural Eval Section A Date of Service: 08/04/22 The patient is an INPATIENT: No The History & Physical has been completed within 30 days and I have reviewed it.: No Section B Chief Complaint: Noninfective gastroenteritis and colits,gerd,pain Relevant Family History (Specify if Yes): Yes Present Medications: see Short Stay Collaborative assessment Medical History: Significant History (Asthma Diabetes GERD (gastroesophageal reflux disease) Hyperlipidemia Hypertension Osteoarthritis) History of Previous Operations: Relevant previous surgery/procedure and date(s) (status post CABAG) Allergies: Allergies Allergy/AdvReac Type Severity Reaction Status Date / Time No Known Allergies Allergy Verified 08/01/22 10:16 Review of Systems Sugical H&P ROS: Negative: Constitution, Cardiovascular, Respiratory and Gastrointestinal Exam Surgical H&P Exam: Normal: Heart, Normal: Lungs, Normal: Extremities and Normal: Abdomen Plan Diagnosis/Plan: Unchanged I have reviewed the history and physical and performed a pertinent physical examination on my patient. No changes have occurred unless specified. Time Spent With Patient Time: Total time managing care of this patient today ____ minutes.
--- NOTE | 2022-08-04 10:43 | W.PM.OPN ---
Operative Note Operative Note Date of Service: 08/04/22 Narrative: FLEXIBLE TRANSORAL UPPER GASTROINTESTINAL ENDOSCOPY WITH BIOPSIES AND SNARE POLYPECTOMY OF GASTRIC POLYP AND COLONOSCOPY TILL CECUM WITH BIOPSIES, SNARE POLYPECTOMY, SUBMUCOSAL INJECTION AND HEMOCLIP PLACEMENT Pre-op diagnosis: Screening, chronic diarrhea Post-op diagnosis: GERD, gastritis, gastric polyp, colon polyp, diverticulosis, hemorrhoids? Endoscopist:? Juany Hathaway MD Anesthesia:?MAC UPPER ENDOSCOPY Consent: Indications for the procedure and potential complications of bleeding, perforation, reaction to medications and missed diagnosis were discussed with the patient and informed consent was obtained. Instrument: Olympus GIF H 190 mid size upper endoscope Monitoring: Vital signs and clinical assessment, continuous EKG monitoring, Pulse oximetry, Carbon Dioxide monitoring and blood pressure monitoring were done throughout the procedure. Procedure: The patient was placed in the left lateral decubitis position and pre-procedure medications were administered and a bite block was placed. The endoscope was inserted into the mouth and advanced under direct vision to the third part of duodenum. A careful inspection was made as the upper endoscope was withdrawn including a retroflexed examination of the proximal stomach; Findings and interventions are described below. Findings: Larynx: Normal Esophagus: GE junction at 40 cms. No esophagitis or Peña's. Stomach: Mild gastric erythema. Biopsies were obtained. An 10- 12 mm benign appearing polyp on gastric side of GE junction seen on retroflexed exam and Grade 2 flap valve. Polyp was removed with a cold snare.. Duodenum: Normal bulb and descending duodenum. Biopsies were obtained from 3rd part of duodenum to check for celiac sprue. Intervention: Biopsies and snare polypectomy as noted above COLONOSCOPY PROCEDURE NOTE Consent: Indications for the procedure and potential complications of bleeding, perforation, reaction to medications and missed diagnosis were discussed with the patient and informed consent was obtained. Instrument: Olympus PCF H 190 L variable stiffness pediatric colonoscope Monitoring: Vital signs and clinical assessment, intermittent blood pressure monitoring, continuous EKG monitoring, Pulse oximetry and Carbon Dioxide monitoring were done throughout the procedure. Colon withdrawl time was 20 minutes. Procedure: The patient was placed in the left lateral decubitis position and pre-procedure medications were administered. After a digital rectal examination of the ano-rectum, the video colonoscope was inserted into the rectum and advanced through the colon to the cecum. The colonoscope was slowly withdrawn in a retrograde panoramic fashion and the colon mucosa was carefully examined including a retroflexed view of the rectum. Findings and interventions are described below. Procedure Difficulty: Colon was long and tortuous and there was luminal narrowing in the sigmoid colon and some loop formation Findings: Terminal Ileum: Not evaluated Cecum: Normal Ascending Colon: Normal Transverse Colon: A 12-15 mm flat polyp in the distal TC at 60 cms. Polyp was raised with 3 cc of Eleview and removed with a stiff snare. Polypectomy site was closed with 2 hemoclips. Descending Colon: Moderate diverticulosis Sigmoid Colon: Severe diverticulosis with luminal narrowing Rectum: Normal Ano-rectum: Moderate internal hemorrhoids Colon preparation: Good after some irrigation Impression and Post Procedure Diagnosis: Endoscopy Findings: STOMACH: Gastritis and gastric polyp at cardia - removed with a snare. DUODENUM: Normal - biopsied to check for celiac sprue Colonoscopy Findings: One medium-size polyp removed Random biopsies were obtained from right and left colon to check for microscopic colitis. Moderate to severe diverticulosis seen in the left colon Moderate hemorrhoids on retroflexed exam. Plan: Await pathology results Patient has an appointment on 08/18/22 in the [facility] with ANABELLA Mitchell. Repeat Colonoscopy interval based on path results - in 3 years if polyp is adenomatous and 10 years if polyps are hyperplastic. Gastric polyps, colon polyps and diverticulosis handouts were given in the discharge area
[2022-08-04 11:47] VITALS: BP 120/58; PULSE 68; RESP 16; TEMP 36.2; O2SAT 98
[2022-08-04 12:02] VITALS: BP 146/57; PULSE 53; RESP 16; TEMP 36.9; O2SAT 98
--- NOTE | 2022-08-04 14:17 | HO.POSTANES ---
Post Anesthesia Evaluation Post Anesthesia Evaluation Vital Signs: Vital Signs Temp Pulse Resp BP Pulse Ox O2 Del Method 08/04/22 12:02 98.5 F 53 16 146/57 H 98 Room Air 08/04/22 11:47 97.1 F 68 16 120/58 L 98 Room Air 08/04/22 09:37 96.9 F 62 16 163/51 H 98 Room Air Anesthesia: Monitored Mental Status: Awake Pain Control: Satisfactory Nausea/Vomiting: None Hydration: Adequate Anesthesia-Related Issues: No Anes. Related Issues
== END 2022-08-04 12:54 | disposition home or self-care (01) ==
PROVIDERS: Visit Provider Internal Medicine Gastroenterology
PROC: (CPT 45385; principal; 2022-08-04 10:20)
DX: K21.9 Gastro-esophageal reflux disease without esophagitis (principal); K31.7 Polyp of stomach and duodenum; K29.70 Gastritis, unspecified, without bleeding; R10.11 Right upper quadrant pain; K52.9 Noninfective gastroenteritis and colitis, unspecified; K56.2 Volvulus; K63.5 Polyp of colon; K57.30 Diverticulosis of large intestine without perforation or abscess without bleeding; E11.9 Type 2 diabetes mellitus without complications; I10 Essential (primary) hypertension; J45.40 Moderate persistent asthma, uncomplicated; Z79.899 Other long term (current) drug therapy
CPT/HCPCS: 45385; 45380; 45381; 43251; 43239; 82947; 88305; 88342

== ENCOUNTER → 2022-08-18 07:52 | Outpatient (BNVA) | payer MEDICARE, MEDICAID, SELFPAY | PROVIDERS: Visit Provider Physician Assistant | DX: K63.5 Polyp of colon (principal); K57.30 Diverticulosis of large intestine without perforation or abscess without bleeding; K64.9 Unspecified hemorrhoids | CPT/HCPCS: 99212 ==

== ENCOUNTER 2022-08-21 07:18 | Outpatient (REF) | payer MEDICARE, MEDICAID, SELFPAY ==
--- NOTE | ~2022-08-21 | CT_ITS ---
EXAMINATION: CT CHEST WITHOUT CONTRAST CLINICAL INFORMATION: Other nonspecific abnormal finding of lung field. COMPARISON: None available. TECHNIQUE: Multidetector volumetric CT imaging of the chest was done. Axial MIP volume rendering provided. Sagittal and coronal reformatted images were obtained. This CT examination was performed using dose optimization techniques as appropriate, variously including the following: *Automated exposure control *Adjustment of mA and/or kV according to patient size (this includes techniques or standardized protocols for targeted exams where dose is matched to indication/reason for exam; i.e. extremities or head) *Use of iterative reconstruction technique DLP: 220 mGy-cm FINDINGS: SCRAP STRIPPER HAND: Well expanded lungs. LUNGS: The lungs are well expanded without any acute pneumonic process. A 2 mm nodule along the left major fissure axial image 17/4, a 6 mm calcified nodule left lower lobe medial segment image 361/5 are stable. There is a 3 mm nodule right middle lobe axial image 341/5, stable. No additional nodules seen. MEDIASTINUM: The central trachea and the bronchi are widely patent. The heart size and the great vessels are normal caliber. No abnormal sized mediastinal or hilar lymph nodes. There is no pericardial effusion. CORONARY ARTERY CALCIFICATION: Moderate coronary artery calcifications are seen. PLEURA: There is no pleural effusion. No pleural mass or thickening. AXILLA: There is a 1.6 cm right axillary lymph node. The chest wall is unremarkable. UPPER ABDOMEN: Visualized liver, spleen, pancreas, and bilateral adrenal glands are unremarkable. OSSEOUS STRUCTURES: There are median sternotomy sutures and mediastinal ofelia from previous CABG. There is mild spondylosis dorsal spine. No aggressive lytic or sclerotic process seen. CT/CT chest wo IV con IMPRESSION: 1. Stable bilateral pulmonary nodules. No new nodules seen. 2. No abnormal mediastinal or axillary lymphadenopathy. Fleischner guidelines were followed.
== END 2022-08-21 07:19 | disposition home or self-care (01) ==
LOC: HO.CT 07:18
PROVIDERS: Visit Provider Hospitalist
DX: R91.8 Other nonspecific abnormal finding of lung field (principal)
CPT/HCPCS: 71250

== ENCOUNTER 2022-10-30 14:07 | Emergency (ER) | payer MEDICARE, MEDICAID, SELFPAY ==
[2022-10-30 14:33] VITALS: BP 131/45; PULSE 60; RESP 18; TEMP 36.4; O2SAT 100; BMI 32.5
--- NOTE | 2022-10-30 14:36 | ED.GENADULT ---
HPI - General Adult General Chief complaint: General Medical Stated complaint: headache body aches fever Time Seen by Provider: 10/30/22 15:52 Source: patient and family Mode of arrival: ambulatory Limitations: no limitations History of Present Illness HPI narrative: 67-year-old female with history of CAD s/p CABG, diverticulosis, obesity, diabetes, GERD, restrictive lung disease, asthma who presents the ER for evaluation of diffuse body aches, generalized weakness, decrease appetite, nausea and generally not feeling well for the last for 5 days. She states her got ill 1st and then she started feeling similar symptoms. She states she threw up once over the last 48 hours. She denies any diarrhea but reports an upset stomach. No chest pain or shortness of breath. No swelling in her legs. She has had subjective fevers and chills. She is vaccinated for COVID x2 complaint: COVID symptoms Onset (ago): day(s) (4) Location: head, back and abdomen Radiation: non-radiation Severity: moderate Quality: aching Pain Consistency: intermittent Relieving factors: none Exacerbating factors: none Associated symptoms: fever/chills, headaches, loss of appetite, malaise, nausea/vomiting and weakness Treatments prior to arrival: none Related Data Home Medications Medication Instructions Recorded Confirmed atorvastatin 80 mg tablet 80 mg PO DAILY 12/19/21 07/31/22 blood sugar diagnostic (FreeStyle #10 ea 12/19/21 07/01/22 Lite Strips) cholecalciferol (vitamin D3) 25 25 mcg PO DAILY 12/19/21 07/31/22 mcg (1,000 unit) tablet dulaglutide 1.5 mg/0.5 mL 1.5 mg subcut QWEEK 12/19/21 07/31/22 subcutaneous pen injector (Trulicity) hydrochlorothiazide 12.5 mg tablet 12.5 mg PO DAILY 12/19/21 07/31/22 insulin aspart U-100 100 unit/mL 25 unit subcut TID 12/19/21 07/31/22 (3 mL) subcutaneous pen (Novolog FlexPen U-100 Insulin aspart) irbesartan 300 mg tablet 300 mg PO QAM 12/19/21 08/04/22 levothyroxine 88 mcg tablet 88 mcg PO DAILY 12/19/21 08/04/22 insulin detemir U-100 100 unit/mL 50 unit subcut BEDTIME 12/25/21 07/31/22 (3 mL) subcutaneous pen (Levemir FlexTouch U-100 Insulin) metoprolol succinate 25 mg 25 mg PO DAILY 07/01/22 08/04/22 tablet,extended release 24 hr Previous Rx's Medication Instructions Recorded albuterol sulfate 0.63 mg/3 mL 0.63 mg (3 mL) inhalation QID PRN 03/06/21 solution for nebulization shortness of breath or wheezing #75 mL nebulizers (AeroEclipse II #1 ea 03/06/21 Nebulizer) aspirin 81 mg tablet,delayed 81 mg PO DAILY 90 days #90 tabs 07/22/22 release albuterol sulfate 90 mcg/actuation 2 inh inhalation QID PRN shortness 08/01/22 aerosol inhaler of breath or wheezing #8.5 grams ipratropium bromide 42 mcg (0.06 2 spray intranasal TID PRN allergy 08/01/22 %) nasal spray symptoms #15 mL famotidine 20 mg tablet 20 mg PO DAILY #90 tabs 08/06/22 methylcellulose (laxative) 500 mg 500 mg PO BID #60 tabs 08/18/22 tablet (Citrucel) simethicone 125 mg chewable tablet 125 mg PO TID-QID PRN abdominal 08/18/22 (Gas Relief (simethicone)) distention #90 tabs diclofenac sodium 75 mg 75 mg PO BID #60 tabs 10/27/22 tablet,delayed release ondansetron 4 mg disintegrating 4 mg PO Q8H PRN nausea and 10/30/22 tablet vomiting #10 tabs Allergies Allergy/AdvReac Type Severity Reaction Status Date / Time No Known Allergies Allergy Verified 08/18/22 08:25 Review of Systems Review of Systems: Yes all other systems are reviewed and are negative [facility] Past Medical History Medical History (Updated 10/30/22 @ 16:03 by ANABELLA Rodriguez) Anxiety and depression Asthma Chronic restrictive lung disease Diabetes Dyspnea GERD (gastroesophageal reflux disease) Hyperlipidemia Hypertension Hypothyroid On beta rito at home Osteoarthritis [id number] syndrome Pulmonary fibrosis Pulmonary nodules Surgical History History of esophagogastroduodenoscopy (EGD) History of tubal ligation Hx of colonoscopy Hx of left cataract extraction Hx of right cataract extraction Previous section S/P CABG x 3 Family History Family History Father Diabetes Hypertension Mother Colon cancer Hypotension Osteogenesis imperfecta Social History Social History (Updated 08/18/22 @ 08:50 by Catrachita Hunter PA-C) Household Members Other:: Alcohol intake: never Patient Tobacco Use Status: Never used Tobacco Advance Directives: No Advance Directives Information Provided: No Physical Exam ED Vital Signs: Vital Signs - 24 hr 10/30/22 14:33 Temperature 97.6 F Pulse Rate 60 Respiratory Rate 18 Blood Pressure 131/45 L Pulse Oximetry 100 Oxygen Delivery Method Room Air BMI result Body Mass Index 32.5 Appearance: Alert. Oriented X3. No acute distress. Head: normocephalic, atraumatic. Eyes: Pupils equal, round and reactive to light. ENT: Pharynx normal. No tonsillar swelling or exudate. Neck: Normal inspection. Neck supple. CVS: Normal heart rate and rhythm. Pulses normal. well-healed surgical scar on the chest consistent with prior CABG Respiratory: No respiratory distress. Breath sounds normal. Abdomen: Soft and nontender. +BS x4 Skin: Skin warm and dry. Normal skin color. Normal skin turgor. No rashes. Extremities: No lower extremity edema. No joint swelling. no calf tenderness Neuro/psych: Oriented X 3. grossly normal, nonfocal. Normal speech and cognition. Course Course Course Narrative: This is an RME: Additional HPI, ROS, PE not included below will be deferred to primary provider. This is a [id number]-female, hx of diabetes and asthma, presenting to the ER with complaints of weakness, body aches, nausea/vomiting for the last couple of days. Pt here with 4 other family members with similar symptoms. VSS. Plan: COVID swab obtained. Medical Decision Making Medical Decision Making MDM Narrative: 67-year-old female with history of diabetes, asthma, CAD status post CABG, restrictive lung disease, GERD, HTN, HLD presenting to the ER for evaluation of weakness, body aches, nausea, vomiting and decreased p.o. intake for the last several days. She is here with for other family members have similar symptoms. Her vital signs are normal on arrival. Her exam is unremarkable with clear lungs and nontender abdomen. She tested positive for COVID along with for other of her family members. She is vaccinated. She has been having symptoms for for 5 days. No role for antivirals at this time. Her symptoms are mild. No respiratory involvement at this time. She is stable for discharge home with supportive care. Return precautions were discussed. Differential Diagnosis Differential Diagnoses: The differential diagnosis associated with the presentation includes COVID, flu, RSV, gastroenteritis, dehydration Admission/Observation Consideration of admission/observation: Escalation of care including admission/observation considered elderly female with multiple medical problems presenting with COVID-19, considered observation Lab Data MDM Lab Attestation statement: I reviewed the patient's lab results. Labs: Lab Results 10/30/22 10/30/22 Range/Units 15:11 15:11 COVID-19 (BELLA) Positive A (Negative) COVID-19 Clin Com See Note S. pyogenes GrpA MUNIR Negative (Negative) Independent Historian Clinical information obtained from an independent historian. History obtained from or confirmed by: Spouse and Other External Record Review External record reviewed: Office record, Outpatient record, Prior outpatient labs and Prior outpatient radiology Tests considered The following testing was considered but not selected: consider chest x-ray Prescription Management I considered prescription management with: Antiviral and Other ( antiemetic) Chronic Conditions Patient?s care impacted by: Diabetes, Hypertension and Other ( CAD, obesity, asthma) Critical Care Time Critical Care Time Critical Care Time: No Discharge Plan Discharge Clinical Impression: COVID-19 Patient Disposition: Home, Self-Care Instructions: COVID-19 (Coronavirus Disease 2019) (ED) Additional Instructions: You were found to be COVID-19 POSITIVE today. Your exam and oxygen levels were normal. Rest. Drink plenty of fluids. Do not go out in public while you are not feeling well. Take the prescribed medication as needed for nausea Take over the counter cold/flu medications as needed for your symptoms. Take Tylenol and/or Motrin as needed for fevers and body aches. Follow up with your doctor as needed. If you develop new or worsening symptoms call 911 or come back to the ER for further evaluation. Prescriptions: New ondansetron 4 mg tablet,disintegrating 4 mg PO Q8H PRN (Reason: nausea and vomiting) Qty: 10 0RF No Action aspirin 81 mg tablet,delayed release (DR/EC) 81 mg PO DAILY 90 Days Qty: 90 3RF famotidine 20 mg tablet 20 mg PO DAILY Qty: 90 1RF diclofenac sodium 75 mg tablet,delayed release (DR/EC) 75 mg PO BID Qty: 60 2RF (DME) nebulizers [AeroEclipse II Nebulizer] Misc See Rx Instructions .ROUTE .MEDSUPPLY Qty: 1 0RF Rx Instructions: As directed albuterol sulfate 0.63 mg/3 mL solution for nebulization 0.63 mg inhalation QID PRN (Reason: shortness of breath or wheezing) Qty: 75 0RF hydrochlorothiazide 12.5 mg tablet 12.5 mg PO DAILY Trulicity 1.5 mg/0.5 mL pen injector 1.5 mg subcut QWEEK insulin aspart U-100 [Novolog FlexPen U-100 Insulin] 100 unit/mL (3 mL) insulin pen 25 unit subcut TID (DME) FreeStyle Lite Strips Strip See Rx Instructions .ROUTE TID Qty: 10 Rx Instructions: As directed atorvastatin 80 mg tablet 80 mg PO DAILY irbesartan 300 mg tablet 300 mg PO QAM levothyroxine 88 mcg tablet 88 mcg PO DAILY cholecalciferol (vitamin D3) 25 mcg (1,000 unit) tablet 25 mcg PO DAILY Levemir FlexTouch U100 Insulin 100 unit/mL (3 mL) insulin pen 50 unit subcut BEDTIME metoprolol succinate 25 mg tablet extended release 24 hr 25 mg PO DAILY ipratropium bromide 42 mcg (0.06 %) spray,non-aerosol 2 spray intranasal TID PRN (Reason: allergy symptoms) Qty: 15 6RF Rx Instructions: administer into each nostril albuterol sulfate 90 mcg/actuation HFA aerosol inhaler 2 inh inhalation QID PRN (Reason: shortness of breath or wheezing) Qty: 8.5 11RF Citrucel 500 mg tablet 500 mg PO BID Qty: 60 5RF simethicone [Gas Relief (simethicone)] 125 mg tablet,chewable 125 mg PO TID-QID PRN (Reason: abdominal distention) Qty: 90 2RF Interventions: ED Discharge Assessment Last Done: 10/30/22 16:51 Discharge Date/Time: 10/30/22 16:52 Print Language: [place]an
[2022-10-30 15:59] LABS: COVID-19 Test Positive (Negative); IDNOW Serial# BCCEAD1C
[2022-10-30 16:11] LABS: IDNOW Serial# 6674DD1D; Strep A Nucleic Acid Negative (Negative)
== END 2022-10-30 16:52 | disposition home or self-care (01) ==
PROVIDERS: Physician Assistant Medical; Emergency Provider Internal Medicine
DX: U07.1 COVID-19 (principal); M79.10 Myalgia, unspecified site; I25.10 Atherosclerotic heart disease of native coronary artery without angina pectoris; R51.9 Headache, unspecified; R50.9 Fever, unspecified; Z79.899 Other long term (current) drug therapy
CPT/HCPCS: 87635; 87651; 99283

== ENCOUNTER 2022-12-02 15:14 | Outpatient (AMB) | payer MEDICARE, MEDICAID, SELFPAY ==
--- NOTE | 2022-12-02 15:19 | A.OFFVIS_ITS ---
Intake Vital Signs 12/02/22 15:20 Height 4 ft 11 in Weight 142 lb BMI 28.7 Pulse 67 Pulse Source Pulse Oximeter Pulse Oximetry (%) 99 Oxygen Delivery Method Room Air Intake Visit Reasons: COPD [employer] Required: No Allergies No Known Allergies Allergy (Verified 12/02/22 15:21) HPI HPI Comments History of Present Illness Details The patient is a 67-year-old woman who initially was evaluated back in the spring and then she was lost to follow-up. She has a history of a sthma. the patient's condition worsen in the beginning of 2021 after she developed severe COVID. Patient was found to have bilateral pneumonia from that infection. The patient continued to have significant shortness of breath after recovering COVID. Moderate severity. She could not perform even simple activities of daily living without becoming significantly winded. The patient had an echocardiogram which did demonstrate a decreased ejection fraction of 50% with some evidence of hypokinesis and also moderate diastolic dysfunction. Ultimately she left to [place] for several months. When she was there her breathing got worse. She had an x-ray and also was evaluated by specialist. Nose felt that the patient had some degree of congestive heart failure and also her obstructive airway disease. She was maintain respiratory therapy and also start diuretics. Her breathing did improve. She did return she denies state. Now as she is following up for care. She did bring a CD with an x-ray that she had there not long ago and I also did review her chest x-ray that she had back in April. Patient does have increased cardiac size in addition to that the art reticulonodular opacities bilaterally likely a combination of pulmonary fibrosis and also cephalization. View of the abnormal chest x-ray I will request a CT scan of the chest to assess her degree of interstitial lung disease. The patient also has a cardiology evaluation pending. 02/03/2022 The patient is here for a pulmonary follow up visit. She is overall doing better from a pulmonary stand point. Continues to complain off dyspnea on exertion, moderate in severity. Does improve with rest. No significant coughing or chest tightness. The patient underwent a CT chest demonstrating stable no dules and no evidence of ILD. Her PFTs demonstrated a moderate restrictive process. I did provide her with an incentive spirometer that she will start using prior to her surgery. 08/01/2022 the patient is here for a pulmonary follow-up visit. The patient is doing very well. She did undergo her cardiac surgery without any complications. Postoperatively she did require left-sided thoracentesis which was affective. Her post thoracentesis x-ray looked a lot better. We did review demonstrating still some atelectatic changes to the left base. She does have increased cardiac size the time. We also talked about her CT scan of the chest that she had back in the fall 2021 with pulmonary nodules. There is small and not concerning. She will however need a CT scan in the fall 2022. The patient does have a EGD and colonoscopy scheduled soon. She is medically optimize my respiratory status and she may able to proceed with anesthesia and her GI procedures without any limitations. Otherwise patient is doing well will follow-up in the fall to follow up with her CT scan. 12/02/2022 the patient is here for a pulmonary follow-up visit. Overall the patient has been doing well. The patient denies any significant shortness of breath or cough. She did have a CT scan of the chest in August 2022. Will personally reviewed. The pulmonary nodules appear to be stable compared to December 2021. The patient also was noted to have a 1.6 cm axillary lymph node. She had had not gotten any vaccines. On examination her respiratory status is stable. I did not appreciate any significant lymphadenopathy in the axilla. She will continue to examine. She does get her mammograms regularly. The patient will go ahead and have a repeat CT scan in a year's time. Will follow-up. In the meantime she has any concerning issues or any new symptoms she is to call for an earlier assessment. [facility] Medical History (Updated 10/30/22 @ 16:03 by ANABELLA Rodriguez) Anxiety and depression Asthma Chronic restrictive lung disease Diabetes Dyspnea GERD (gastroesophageal reflux disease) Hyperlipidemia Hypertension Hypothyroid On beta rito at home Osteoarthritis [id number] syndrome Pulmonary fibrosis Pulmonary nodules Surgical History History of esophagogastroduodenoscopy (EGD) History of tubal ligation Hx of colonoscopy Hx of left cataract extraction Hx of right cataract extraction Previous section S/P CABG x 3 Family History Father Diabetes Hypertension Mother Colon cancer Hypotension Osteogenesis imperfecta Social History (Updated 08/18/22 @ 08:50 by Catrachita Hunter PA-C) Household Members Other:: Alcohol intake: never Patient Tobacco Use Status: Never used Tobacco Review of Systems Const Reports fatigue and Denies fever(s) Eyes Denies change in vision ENT Denies change in voice Card Denies chest pain and Reports dyspnea on exertion Resp Denies chest congestion, Reports cough, Reports dyspnea on exertion and Denies wheezing GI Reports no additional complaints Musc Reports no additional complaints Skin/Breast Denies rash Neuro Reports no additional complaints and Denies Abnormal speech present Endo Reports fatigue Jethro/Lymph Denies easy bleeding and Denies easy bruising Aller/Immun Denies wheezing Physical Exam Vital Signs: Last Vital Signs Pulse 67 12/02/22 15:20 Pulse Ox 99 12/02/22 15:20 Oxygen Delivery Method Room Air 12/02/22 15:20 BMI result Body Mass Index 28.7 Const General: cooperative, comfortable and no acute distress Orientation/consciousness: patient oriented x3 Neck Neck: Yes normal visual inspection and Yes no JVD Chest Other: Sternal incision well healed, nontender to palpation around area, no open skin noted Resp Effort & Inspection: normal respiratory effort Auscultation: no crackles, no rales, no rhonchi, no wheezes and diminished lung sounds Cardio Jugular venous distension: no JVD Rate: regular rate Rhythm: regular rhythm Heart sounds: S1 normal heart sound present, S2 normal heart sound present, no gallops, no murmurs and no rubs Peripheral pulses: Peripheral pulses 2+ throughout Neuro General: patient oriented x3 Speech: No Abnormal speech present Extrem Other: Scabs to each of the GS V graft sites. Area on left leg with large scab, red ness around the area and pus noted around scab edges, not draining actively. Psych Appearance: grossly normal Mental Status: mental status grossly normal Speech and movement: Normal speech and movement present Assessment & Plan Assessment & Plan (1) Asthma: Code(s): J45.909 - Unspecified asthma, uncomplicated Qualifiers: Asthma complication type: uncomplicated Asthma persistence: persistent Asthma severity: moderate Qualified Code(s): J45.40 - Moderate persistent asthma, uncomplicated (2) Dyspnea: Code(s): R06.00 - Dyspnea, unspecified (3) Chronic restrictive lung disease: Code(s): J98.4 - Other disorders of lung (4) Pulmonary nodules: Code(s): R91.8 - Other nonspecific abnormal finding of lung field Plan continue short-acting beta agonist as needed consider maintenance inhaler. small pulmonary nodule 2mm, repeat CT chest August 2023 follow-up in August 2023 Orders: Orders CT chest wo IV con 08/05/23 R91.8 - Other nonspecific abnormal finding of lung field Coding Level of Care Code Est Pt Level 4 (78788) Diagnoses Asthma J45.40 Asthma complication type: uncomplicated Asthma persistence: persistent Asthma severity: moderate Dyspnea R06.00 Chronic restrictive lung disease J98.4 Pulmonary nodules R91.8 Time Spent (min) 17
[2022-12-02 15:20] VITALS: PULSE 67; O2SAT 99; BMI 28.7
== END 2022-12-02 15:36 | disposition home or self-care (01) ==
PROVIDERS: Visit Provider Hospitalist
DX: J45.40 Moderate persistent asthma, uncomplicated (principal); R06.00 Dyspnea, unspecified; J98.4 Other disorders of lung; R91.8 Other nonspecific abnormal finding of lung field
CPT/HCPCS: 99214

== ENCOUNTER → 2022-12-02 15:14 | Outpatient (BNVA) | payer MEDICARE, MEDICAID, SELFPAY | PROVIDERS: Visit Provider Hospitalist | DX: J45.40 Moderate persistent asthma, uncomplicated (principal); J98.4 Other disorders of lung; R91.8 Other nonspecific abnormal finding of lung field; R06.00 Dyspnea, unspecified | CPT/HCPCS: 99212 ==

== ENCOUNTER 2022-12-30 13:14 | Outpatient (AMB) | payer MEDICARE, MEDICAID, SELFPAY ==
--- NOTE | 2022-12-30 13:24 | A.OFFVIS_ITS ---
Intake Vital Signs 12/30/22 13:25 Height 4 ft 11 in Weight 145 lb 8.081 oz BMI 29.4 BP 146/80 H Blood Pressure Location Lt brachial Position Sitting Pulse 63 Intake Visit Reasons: 6 month follow up Intake Note: 6 month follow-up feeling good Residential Treatment Specialist Required: Yes Residential Treatment Specialist Name: Anastacio smiley Allergies No Known Allergies Allergy (Verified 12/02/22 15:21) Medication List - Last Reconciled 12/30/22 by David Lockhart MD albuterol sulfate 0.63 mg (3 mL) inhalation QID PRN albuterol sulfate 90 mcg/actuation 2 inhalations inhalation QID PRN aspirin 81 mg PO DAILY 90 days atorvastatin 80 mg PO DAILY blood sugar diagnostic (FreeStyle Lite Strips) As directed cholecalciferol (vitamin D3) 25 mcg PO DAILY diclofenac sodium 75 mg PO BID dulaglutide (Trulicity) 1.5 mg subcut QWEEK famotidine 20 mg PO DAILY hydrochlorothiazide 12.5 mg PO DAILY insulin aspart U-100 (Novolog FlexPen U-100 Insulin aspart) 25 units subcut TID insulin detemir U-100 (Levemir FlexTouch U-100 Insulin) 50 units subcut BEDTIME ipratropium bromide 2 sprays intranasal TID PRN irbesartan 300 mg PO QAM levothyroxine 88 mcg PO DAILY methylcellulose (laxative) (Citrucel) 500 mg PO BID metoprolol succinate ER 25 mg PO DAILY nebulizers (AeroEclipse II Nebulizer) As directed ondansetron 4 mg PO Q8H PRN simethicone (Gas Relief (simethicone)) 125 mg PO TID-QID PRN HPI HPI Comments History of Present Illness Details Olivia comes for follow-up. History was obtained with help of a business analytics director. She is doing well. She denies any cardiovascular symptoms. Denies symptoms exertional chest pain or shortness of breath. Denies any orthopnea, PND, leg edema, claudication. Takes all her medications. She says her diabetes management is borderline. She does not have any issues with lightheadedness, syncope. [facility] Medical History Pulmonary nodules On beta rito at home Hypothyroid Anxiety and depression Chronic restrictive lung disease [id number] syndrome Dyspnea Pulmonary fibrosis Osteoarthritis Hyperlipidemia GERD (gastroesophageal reflux disease) Hypertension Diabetes Asthma Surgical History History of tubal ligation History of esophagogastroduodenoscopy (EGD) Hx of colonoscopy Hx of left cataract extraction Hx of right cataract extraction S/P CABG x 3 Previous section Family History Father Diabetes Hypertension Mother Colon cancer Hypotension Osteogenesis imperfecta Social History Household Members Other:: Alcohol intake: never Patient Tobacco Use Status: Never used Tobacco Review of Systems Const Denies chills, Denies fatigue, Denies fever(s), Denies frequent falls, Denies weakness, Denies weight gain and Denies weight loss ENT Denies dizziness Card Denies chest pain, Denies leg edema, Denies lightheadedness, Denies palpitations, Denies dyspnea, Denies dyspnea on exertion, Denies orthopnea and Denies other (loss of consciousness) Resp Denies cough, Denies dyspnea and Denies dyspnea on exertion GI Denies hematochezia and Denies change in stool character Musc Denies abnormal gait, Denies muscle weakness, Denies numbness, Denies radiating pain into limb and Denies tingling Neuro Denies abnormal gait, Denies dizziness, Denies frequent falls, Denies numbness, Denies tingling and Denies weakness Endo Denies fatigue and Denies palpitations Physical Exam Vital Signs: Last Vital Signs Pulse 63 12/30/22 13:25 BP 146/80 H 12/30/22 13:25 BMI result Body Mass Index 29.4 Const General: cooperative, comfortable and no acute distress Orientation/consciousness: patient oriented x3 Neck Neck: Yes normal visual inspection and Yes no JVD Chest Other: Sternal incision well healed, nontender to palpation around area, no open skin noted Resp Effort & Inspection: normal respiratory effort Auscultation: clear to auscultation bilaterally, no crackles, no rales, no rhonchi and no wheezes Cardio Jugular venous distension: no JVD Rate: regular rate Rhythm: regular rhythm Heart sounds: S1 normal heart sound present, S2 normal heart sound present, no gallops, Murmur heart sound present systolic early and no rubs Peripheral pulses: Peripheral pulses 2+ throughout Neuro General: patient oriented x3 Extrem Other: Scabs to each of the GS V graft sites. Area on left leg with large scab, redness around the area and pus noted around scab edges, not draining actively. Psych Appearance: grossly normal Mental Status: mental status grossly normal Speech and movement: Normal speech and movement present Assessment & Plan Assessment & Plan (1) CAD (coronary artery disease): Code(s): I25.10 - Atherosclerotic heart disease of [place] coronary artery without angina pectoris Plan: CAD status post coronary artery bypass grafting with resolved symptoms and improve functionality. She is doing very well from that perspective. Continue aggressive medical therapy. Continue lifelong aspirin therapy. Continue high- intensity statin therapy with target goal LDL closer to 60 mg/dL. Continue aggressive management diabetes being pursue 3 our office. Goal hemoglobin A1c less than 7%. Continue aggressive control blood pressure which is well optimized. Target goal blood pressure less than 130/84. Advised to monitor blood pressure at home maintain a log. (2) Ischemic cardiomyopathy: Code(s): I25.5 - Ischemic cardiomyopathy Plan: Mild persistent ischemic cardiomyopathy without any signs or symptoms of heart failure. Continue current neurohormonal modulation with a irbesartan and metoprolol therapy. Signs and symptoms of heart failure were discussed. Advised to call me with any new symptoms. Will follow up in the clinic in 1 year's time, sooner p.r.n.. Thank you for allowing me to partake in her care Coding Level of Care Code Est Pt Level 4 (21957) Diagnoses CAD (coronary artery disease) I25.10 Ischemic cardiomyopathy I25.5
[2022-12-30 13:25] VITALS: BP 146/80; PULSE 63; BMI 29.4
== END 2022-12-30 14:19 | disposition home or self-care (01) ==
PROVIDERS: Visit Provider Internal Medicine Cardiovascular Disease
DX: I25.10 Atherosclerotic heart disease of native coronary artery without angina pectoris (principal); I25.5 Ischemic cardiomyopathy
CPT/HCPCS: 99214

== ENCOUNTER → 2022-12-30 13:14 | Outpatient (BNVA) | payer MEDICARE, MEDICAID, SELFPAY | PROVIDERS: Visit Provider Internal Medicine Cardiovascular Disease | DX: I25.10 Atherosclerotic heart disease of native coronary artery without angina pectoris (principal); I25.5 Ischemic cardiomyopathy | CPT/HCPCS: 99212 ==

== ENCOUNTER 2023-08-14 13:06 | Outpatient (REF) | payer MEDICARE, MEDICAID, SELFPAY ==
--- NOTE | ~2023-08-14 | CT_ITS ---
EXAMINATION: CT CHEST WITHOUT CONTRAST CLINICAL INFORMATION: Pulmonary nodule. COMPARISON: 08/21/2022, 12/27/2021 and selected priors. TECHNIQUE: Multidetector volumetric CT imaging of the chest was done. Axial MIP volume rendering provided. Sagittal and coronal reformatted images were obtained. This CT examination was performed using dose optimization techniques as appropriate, variously including the following: *Automated exposure control *Adjustment of mA and/or kV according to patient size (this includes techniques or standardized protocols for targeted exams where dose is matched to indication/reason for exam; i.e. extremities or head) *Use of iterative reconstruction technique DLP: 220 mGy-cm FINDINGS: FORM LAYER: Status post median sternotomy. LUNGS: A less than 4 mm left upper lobe perifissural nodule (series 5 image 111) stable since 2021. No follow up indicated. A densely calcified left lower lobe pulmonary nodule (series 5 image 251), unchanged since 2021. No follow up indicated. A stable less than 4 mm right middle lobe pulmonary nodule (series 5 image 227). No follow up indicated. No new pulmonary nodules. Exam degraded by motion artifact. Patchy air-trapping noted. Focal fibrosis in the medial right lower lobe overlying prominent dorsal osteophytes, stable given differences in technique. Lunate trachea with collapse in the sagittal plane raises the possibility of tracheomalacia. Consider pulmonary function studies. MEDIASTINUM: No mediastinal mass or lymphadenopathy. CORONARY ARTERY CALCIFICATION: Severe coronary artery disease. Status post median sternotomy for bypass surgery. PLEURA: There is no pleural effusion. No pleural mass or thickening. AXILLA: No lymphadenopathy. UPPER ABDOMEN: Marked atherosclerotic peripheral vascular disease. Dependent high density material in an otherwise normal-appearing gallbladder, likely small layering stones. OSSEOUS STRUCTURES: The sternum is well united. No evidence of dehiscence. Degenerative spine disease. CT/CT chest wo IV con IMPRESSION: Small stable pulmonary nodules without climate change risk assessor 2 years. No follow up indicated. Air-trapping. 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 Consider pulmonary function studies. CABG. Cholelithiasis. Fleischner guidelines were followed.
== END 2023-08-14 13:07 | disposition home or self-care (01) ==
LOC: HO.CT 13:06
PROVIDERS: Visit Provider Hospitalist
DX: R91.8 Other nonspecific abnormal finding of lung field (principal)
CPT/HCPCS: 71250

== ENCOUNTER 2023-08-24 13:50 | Outpatient (AMB) | payer MEDICARE, MEDICAID, SELFPAY ==
[2023-08-24 13:57] VITALS: PULSE 69; O2SAT 94; BMI 28.3
--- NOTE | 2023-08-24 13:57 | A.OFFVIS_ITS ---
Vital Signs 08/24/23 13:57 Height 4 ft 11 in Weight 140 lb BMI 28.3 Pulse 69 Pulse Source Pulse Oximeter Pulse Oximetry (%) 94 Oxygen Delivery Method Room Air Intake Visit Reasons: COPD Housing Counselor Required: No Allergies No Known Allergies Allergy (Verified 08/24/23 13:59) HPI Comments Details: The patient is a 68-year-old woman who initially was evaluated back in the spring and then she was lost to follow-up. She has a history of asthma. the patient's condition worsen in the beginning of 2021 after she developed severe COVID. Patient was found to have bilateral pneumonia from that infection. The patient continued to have significant shortness of breath after recovering COVID. Moderate severity. She could not perform even simple activities of daily living without becoming significantly winded. The patient had an echocardiogram which did demonstrate a decreased ejection fraction of 50% with some evidence of hypokinesis and also moderate diastolic dysfunction. Ultimately she left to [place] for several months. When she was there her breathing got worse. She had an x-ray and also was evaluated by specialist. Nose felt that the patient had some degree of congestive heart failure and also her obstructive airway disease. She was maintain respiratory therapy and also start diuretics. Her breathing did improve. She did return she denies state. Now as she is following up for care. She did bring a CD with an x-ray that she had there not long ago and I also did review her chest x-ray that she had back in April. Patient does have increased cardiac size in addition to that the art reticulonodular opacities bilaterally likely a combination of pulmonary fibrosis and also cephalization. View of the abnormal chest x-ray I will request a CT scan of the chest to assess her degree of interstitial lung disease. The patient also has a cardiology evaluation pending. 02/03/2022 The patient is here for a pulmonary follow up visit. She is overall doing better from a pulmonary stand point. Continues to complain off dyspnea on exertion, moderate in severity. Does improve with rest. No significant coughing or chest tightness. The patient underwent a CT chest demonstrating stable nodules and no evidence of ILD. Her PFTs demonstrated a moderate restrictive process. I did provide her with an incentive spirometer that she will start using prior to her surgery. 08/01/2022 the patient is here for a pulmonary follow-up visit. The patient is doing very well. She did undergo her cardiac surgery without any complications. Postoperatively she did require left-sided thoracentesis which was affective. Her post thoracentesis x-ray looked a lot better. We did review demonstrating still some atelectatic changes to the left base. She does have increased cardiac size the time. We also talked about her CT scan of the chest that she had back in the fall 2021 with pulmonary nodules. There is small and not kings rning. She will however need a CT scan in the fall 2022. The patient does have a EGD and colonoscopy scheduled soon. She is medically optimize my respiratory status and she may able to proceed with anesthesia and her GI procedures without any limitations. Otherwise patient is doing well will follow-up in the fall to follow up with her CT scan. 12/02/2022 the patient is here for a pulmonary follow-up visit. Overall the patient has been doing well. The patient denies any significant shortness of breath or cough. She did have a CT scan of the chest in August 2022. Will personally reviewed. The pulmonary nodules appear to be stable compared to December 2021. The patient also was noted to have a 1.6 cm axillary lymph node. She had had not gotten any vaccines. On examination her respiratory status is stable. I did not appreciate any significant lymphadenopathy in the axilla. She will continue to examine. She does get her mammograms regularly. The patient will go ahead and have a repeat CT scan in a year's time. Will follow-up. In the meantime she has any concerning issues or any new symptoms she is to call for an earlier assessment. 08/24/2023 the patient is here for a pulmonary follow-up visit. Overall the patient is doing fair. She is complaining significant reflux disease and irritation. Moderate severity. She does not take any medications for it. She has a hard time sleeping because of it. Resulting in a cough. The patient did have a repeat CT scan of the chest. Has not been for from formally read. Will go ahead and request final read. I did evaluate myself. It appears that she does have a dilated esophagus and likely hiatal hernia. Will go ahead and request a barium swallow. As far as her pulmonary nodules, 1 appears to be subsolid nature in the right middle lobe area. Will need longer follow-up. . 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 Dyspnea Pulmonary fibrosis Osteoarthritis Hyperlipidemia GERD (gastroesophageal reflux disease) Hypertension Diabetes Asthma Surgical History History of tubal ligation History of esophagogastroduodenoscopy (EGD) Hx of colonoscopy Hx of left cataract extraction Hx of right cataract extraction S/P CABG x 3 Previous section Family History Father Diabetes Hypertension Mother Colon cancer Hypotension Osteogenesis imperfecta Social History Household Members Other:: Alcohol intake: never Patient Tobacco Use Status: Never used Tobacco Review of Systems Const Reports fatigue and Denies fever(s) Eyes Denies change in vision ENT Denies change in voice Card Denies chest pain and Reports dyspnea on exertion Resp Denies chest congestion, Reports cough, Reports dyspnea on exertion and Denies wheezing GI Reports no additional complaints Musc Reports no additional complaints Skin/Breast Denies rash Neuro Reports no additional complaints and Denies Abnormal speech present Endo Reports fatigue Jethro/Lymph Denies easy bleeding and Denies easy bruising Aller/Immun Denies wheezing Physical Exam Vital Signs: Last Vital Signs Pulse 69 08/24/23 13:57 Pulse Ox 94 08/24/23 13:57 Oxygen Delivery Method Room Air 08/24/23 13:57 BMI result Body Mass Index 28.3 Const General: cooperative, comfortable and no acute distress Orientation/consciousness: patient oriented x3 Neck Neck: Yes normal visual inspection and Yes no JVD Chest Other: Sternal incision well healed, nontender to palpation around area, no open skin noted Resp Effort & Inspection: normal respiratory effort Auscultation: no crackles, no rales, no rhonchi, no wheezes and diminished lung sounds Cardio Jugular venous distension: no JVD Rate: regular rate Rhythm: regular rhythm Heart sounds: S1 normal heart sound present, S2 normal heart sound present, no gallops, no murmurs and no rubs Peripheral pulses: Peripheral pulses 2+ throughout Neuro General: patient oriented x3 Speech: No Abnormal speech present Extrem Other: Scabs to each of the GS V graft sites. Area on left leg with large scab, redness around the area and pus noted around scab edges, not draining actively. Psych Appearance: grossly normal Mental Status: mental status grossly normal Speech and movement: Normal speech and movement present Assessment & Plan Assessment & Plan (1) Asthma: Code(s): J45.909 - Unspecified asthma, uncomplicated Category: Medical Qualifiers: Asthma complication type: uncomplicated Asthma persistence: persistent Asthma severity: moderate Qualified Code(s): J45.40 - Moderate persistent asthma, uncomplicated (2) Dyspnea: Code(s): R06.00 - Dyspnea, unspecified Category: Medical Qualifiers: Dyspnea type: dyspnea on exertion Qualified Code(s): R06.09 - Other forms of dyspnea (3) Chronic restrictive lung disease: Code(s): J98.4 - Other disorders of lung Category: Medical (4) Pulmonary nodules: Code(s): R91.8 - Other nonspecific abnormal finding of lung field Category: Medical (5) GERD (gastroesophageal reflux disease): Comment: famotidine 20 mg Code(s): K21.9 - Gastro-esophageal reflux disease without esophagitis Category: Medical Qualifiers: Esophagitis presence: with esophagitis Esophagitis bleeding: without hemorrhage Qualified Code(s): K21.00 - Gastro-esophageal reflux disease with esophagitis, without bleeding Plan continue short-acting beta agonist as needed start PPI Barium swallow small pulmonary nodule 2mm, repeat CT chest August 2023, awaiting final read follow-up in 4-6 months Orders: Orders [place] barium swallow Today K21.9 - Gastro-esophageal reflux disease without esophagitis Medications: New omeprazole 40 mg PO DAILY 30 caps 3RF 30 days Coding Level of Care Code Est Pt Level 4 (96967) Diagnoses Moderate persistent asthma without complication J45.40 Asthma complication type: uncomplicated Asthma persistence: persistent Asthma severity: moderate Dyspnea on exertion R06.09 Dyspnea type: dyspnea on exertion Chronic restrictive lung disease J98.4 Pulmonary nodules R91.8 Gastroesophageal reflux disease with esophagitis without hemorrhage K21.00 Esophagitis presence: with esophagitis Esophagitis bleeding: without hemorrhage Time Spent (min) 17
== END 2023-08-24 14:22 | disposition home or self-care (01) ==
PROVIDERS: Visit Provider Hospitalist
DX: J45.40 Moderate persistent asthma, uncomplicated (principal); R06.09 Other forms of dyspnea; J98.4 Other disorders of lung; R91.8 Other nonspecific abnormal finding of lung field; K21.00 Gastro-esophageal reflux disease with esophagitis, without bleeding
CPT/HCPCS: 99214

== ENCOUNTER → 2023-08-24 13:50 | Outpatient (BNVA) | payer MEDICARE, MEDICAID, SELFPAY | PROVIDERS: Visit Provider Hospitalist | DX: J45.40 Moderate persistent asthma, uncomplicated (principal); J98.4 Other disorders of lung; R91.8 Other nonspecific abnormal finding of lung field; R06.09 Other forms of dyspnea; U09.9 Post COVID-19 condition, unspecified; K21.00 Gastro-esophageal reflux disease with esophagitis, without bleeding | CPT/HCPCS: 99212 ==

== ENCOUNTER 2023-08-31 10:39 | Emergency (ER) | payer MEDICARE, MEDICAID, SELFPAY ==
--- NOTE | ~2023-08-31 | XR_ITS ---
EXAMINATION: XR chest 2V CLINICAL INFORMATION: Reason for Exam cough, dyspnea COMPARISON: 2021 TECHNIQUE: XR chest 2V, 2 Views Lungs and Cherelle: Mild vascular congestion without rancho failure. Pleura: Normal. Costophrenic angles are sharp. No pneumothorax. Heart: Cardiac silhouette is borderline enlarged. Mediastinum: The mediastinum is within normal limits.. Bones: Sternotomy wires from prior thoracotomy XR/XR chest 2V IMPRESSION: 1. Borderline cardiomegaly, mild vascular congestion without rancho failure. 2. No pleural effusion.
[2023-08-31 10:53] VITALS: BP 136/47; PULSE 65; RESP 20; TEMP 36.3; O2SAT 98; BMI 29.7
--- NOTE | 2023-08-31 10:54 | ED.GENADULT ---
HPI - General Adult General Chief complaint: Upper Respiratory Symptoms Stated complaint: Cough Time Seen by Provider: 08/31/23 12:45 Source: patient, family, RN notes reviewed and old records reviewed History of Present Illness ED Provider: Brianda Talamantes PA-C HPI narrative: 68-year-old Malagasy-speaking female with a past medical history of asthma, CHF, FERDINAND, HTN, diabetes, presenting to the ED complaining of dry cough and SOB x7 days. Also reports rhinorrhea and right-sided ear pain. Has been using inhaler at home without relief. Denies use of steroids. denies chest pain, fever, chills, travel, pedal edema, sore throat Onset (ago): day(s) Related Data Home Medications ?Medication ?Instructions ?Recorded ?Confirmed atorvastatin 80 mg tablet 80 mg PO DAILY 12/19/21 12/30/22 blood sugar diagnostic (FreeStyle #10 ea 12/19/21 12/30/22 Lite Strips) cholecalciferol (vitamin D3) 25 25 mcg PO DAILY 12/19/21 12/30/22 mcg (1,000 unit) tablet dulaglutide 1.5 mg/0.5 mL 1.5 mg subcut QWEEK 12/19/21 12/30/22 subcutaneous pen injector (Trulicity) hydrochlorothiazide 12.5 mg tablet 12.5 mg PO DAILY 12/19/21 12/30/22 insulin aspart U-100 100 unit/mL 25 unit subcut TID 12/19/21 12/30/22 (3 mL) subcutaneous pen (Novolog FlexPen U-100 Insulin aspart) irbesartan 300 mg tablet 300 mg PO QAM 12/19/21 12/30/22 levothyroxine 88 mcg tablet 88 mcg PO DAILY 12/19/21 12/30/22 insulin detemir U-100 100 unit/mL 50 unit subcut BEDTIME 12/25/21 12/30/22 (3 mL) subcutaneous pen (Levemir FlexTouch U-100 Insulin) metoprolol succinate 25 mg 25 mg PO DAILY 07/01/22 12/30/22 tablet,extended release 24 hr Previous Rx's ?Medication ?Instructions ?Recorded albuterol sulfate 0.63 mg/3 mL 0.63 mg (3 mL) inhalation QID PRN 03/06/21 solution for nebulization shortness of breath or wheezing #75 mL nebulizers (AeroEclipse II #1 ea 03/06/21 Nebulizer) aspirin 81 mg tablet,delayed 81 mg PO DAILY 90 days #90 tabs 07/22/22 release albuterol sulfate 90 mcg/actuation 2 inh inhalation QID PRN shortness 08/01/22 aerosol inhaler of breath or wheezing #8.5 grams methylcellulose (laxative) 500 mg 500 mg PO BID #60 tabs 08/18/22 tablet (Citrucel) simethicone 125 mg chewable tablet 125 mg PO TID-QID PRN abdominal 08/18/22 (Gas Relief (simethicone)) distention #90 tabs diclofenac sodium 75 mg 75 mg PO BID #60 tabs 10/27/22 tablet,delayed release ondansetron 4 mg disintegrating 4 mg PO Q8H PRN nausea and 10/30/22 tablet vomiting #10 tabs famotidine 20 mg tablet 20 mg PO DAILY #90 tabs 02/16/23 ipratropium bromide 42 mcg (0.06 2 spray intranasal TID PRN allergy 07/06/23 %) nasal spray symptoms #15 mL omeprazole 40 mg capsule,delayed 40 mg PO DAILY 30 days #30 caps 08/24/23 release azithromycin 250 mg tablet See Rx Instructions PO .COMPLEX #6 08/31/23 tabs prednisone 20 mg tablet 40 mg (2 x 20 mg) PO DAILY 5 days 08/31/23 #10 tabs Allergies Allergy/AdvReac Type Severity Reaction Status Date / Time No Known Allergies Allergy Verified 08/31/23 10:55 Review of Systems Review of Systems: Constitutional: No Fever, No Chills ENT/Mouth: + Ear Pain, + Nasal Congestion, No Sinus Pain, No Hoarseness, No sore throat, + Rhinorrhea, No Swallowing Difficulty Cardiovascular: No Chest Pain, + SOB Respiratory: + Cough, No Sputum, No Wheezing Gastrointestinal: No Nausea, No Vomiting, No Abdominal pain Musculoskeletal: No joint pain, No Myalgias, No Joint Swelling Skin: No Skin Lesions, No rash Yes all other systems are reviewed and are negative Constitutional: Constitutional: Reports as per [facility] Past Medical History Attestation statement: The following information was validated with the patient. Source: old records reviewed Medical History Pulmonary nodules On beta rito at home Hypothyroid Anxiety and depression Chronic restrictive lung disease [id number] syndrome Dyspnea Pulmonary fibrosis Osteoarthritis Hyperlipidemia GERD (gastroesophageal reflux disease) Hypertension Diabetes Asthma Surgical History History of tubal ligation History of esophagogastroduodenoscopy (EGD) Hx of colonoscopy Hx of left cataract extraction Hx of right cataract extraction S/P CABG x 3 Previous section Family History Family History Father Diabetes Hypertension Mother Colon cancer Hypotension Osteogenesis imperfecta Social History Social History Household Members Other:: Alcohol intake: never Patient Tobacco Use Status: Never used Tobacco Advance Directives: No Advance Directives Information Provided: Yes Physical Exam ED Vital Signs: Vital Signs - 24 hr 08/31/23 10:53 08/31/23 12:00 08/31/23 14:37 Temperature 97.4 F 97.8 F Pulse Rate 65 58 58 Respiratory Rate 20 16 Blood Pressure 136/47 L 140/50 H Pulse Oximetry 98 97 Oxygen Delivery Method Room Air Room Air BMI result Body Mass Index 29.7 Const General: cooperative, healthy appearing and no acute distress Orientation/consciousness: patient oriented x3 Limitations: no limitations HENMT Head: Yes normal to inspection and Yes atraumatic Ears: hearing grossly normal bilaterally and TM's normal bilaterally General nose exam: Normal external nose present Face and sinus: Yes normal facial exam Mouth: Normal oral and palatal mucosa present Throat: Yes posterior oropharynx normal, Yes tonsils normal, Yes uvula midline and No peritonsillar mass Eyes General: appearance normal, both eyes and all related structures EOM: EOMs intact bilaterally Neck Neck: Yes normal visual inspection and Yes no meningeal signs Resp Effort & Inspection: normal respiratory effort, Actively coughing Quality: dry, not labored and no respiratory distress Auscultation: clear to auscultation bilaterally, no crackles, no rhonchi and no wheezes Cardio Rate: regular rate Heart sounds: S1 normal heart sound present and S2 normal heart sound present GI Inspection: Yes normal to inspection Palpation (GI): Soft to palpation, nontender, no guarding and not rigid Skin Rashes: no rashes Wounds: no wounds Neuro General: patient oriented x3, tone normal and no meningeal signs Cranial nerves: Yes CN's II-XII intact bilaterally Gait exam (Neuro): Normal gait present Extrem General: Yes normal to inspection and Yes no pedal edema Course Course Course Narrative: This is a rapid medical exam performed by Adan Jarvis NP: Additional HPI, ROS, PE not included below will be deferred to primary provider. Patient is a 68-year-old female with history of asthma, CAD, pulmonary nodules pulmonary fibrosis, DM presenting to the ED with complaint of nonproductive cough for several days. Denies fevers. Robitussin with little relief. Expiratory wheezing throughout, speaking easily in full sentences, coughing in triage. Plan: viral swabs, cxr -COVID/flu/RSV negative XR chest 2V IMPRESSION: 1. Borderline cardiomegaly, mild vascular congestion without rancho failure. 2. No pleural effusion. Results discussed with patient including worrisome signs and symptoms and strict return precautions, and when to return to the emergency department. They verbalized understanding and feel safe for discharge at this time. Medications Administered Discontinued Medications Generic Name Dose Route Start Last Admin Trade Name Freq PRN Reason Stop Dose Admin Albuterol/Ipratropium 3 ml 08/31/23 13:28 08/31/23 14:37 Albuterol/Iprat 2.5/0.5mg 3 Ml Ampul.Neb INHALE 08/31/23 13:29 3 ml ONCE ONE Administration Medical Decision Making Medical Decision Making [facility] Narrative: 68-year-old Malagasy-speaking female with a past medical history of asthma, CHF, FERDINAND, HTN, diabetes, presenting to the ED complaining of dry cough and SOB x7 days. On exam vital signs stable, NAD, nontoxic appearing, talking in complete sentences, lungs CTA, no appreciable pitting edema. Concern for viral illness vs bronchitis vs pneumonia. Low suspicion for ACS/PE. Clinically no evidence of CHF. No evidence of otitis or strep Plan: Viral testing, CXR, DuoNeb per patient request Please refer to course for remaining clinical decision making, interpretation of labs/imaging results, and discussions with consultants and/or family members. Differential Diagnosis Differential Diagnoses: The differential diagnosis associated with the presentation includes As above Lab Data [facility] Lab Attestation statement: I reviewed the patient's lab results. Labs: Lab Results 08/31/23 Range/Units 11:09 Influenza Type A (PCR) NEGATIVE (Negative) Influenza Type B (PCR) NEGATIVE (Negative) RSV RNA Qual (PCR) NEGATIVE (Negative) SARS-CoV-2 RNA (RT-PCR) NEGATIVE (Negative) Independent Interpretation I performed an independent interpretation of an: Plain X-Ray Radiology Impression Discussion of test interpretation with radiology: I have reviewed the radiologist's reading. Independent Historian Clinical information obtained from an independent historian. History obtained from or confirmed by: Spouse External Record Review External record reviewed: Inpatient record, Office record, Outpatient record, Prior outpatient labs, Prior outpatient radiology, Primary care record and Outside ED record Tests considered The following testing was considered but not selected: As above Chronic Conditions Patient?s care impacted by: Other (FERDINAND, asthma) Discharge Plan Discharge Clinical Impression: Bronchitis Patient Disposition: Home, Self-Care Instructions: Acute Bronchitis (ED) Additional Instructions: You tested negative for COVID, flu and RSV. Her x-ray shows some congestion however no pneumonia Prednisone as a steroid please take as prescribed Continue using her inhaler In addition azithromycin is an antibiotic please take as prescribed Please have close follow-up with yourr doctor If symptoms persist or worsen return to the emergency department Prescriptions: New azithromycin 250 mg tablet See Rx Instructions .ROUTE .COMPLEX Qty: 6 0RF Rx Instructions: take 500 mg today (day 1), then 250 mg for 4 days (days 2-5) prednisone 20 mg tablet 40 mg PO DAILY 5 Days Qty: 10 0RF No Action aspirin 81 mg tablet,delayed release (DR/EC) 81 mg PO DAILY 90 Days Qty: 90 3RF diclofenac sodium 75 mg tablet,delayed release (DR/EC) 75 mg PO BID Qty: 60 2RF famotidine 20 mg tablet 20 mg PO DAILY Qty: 90 1RF ipratropium bromide 42 mcg (0.06 %) spray,non-aerosol 2 spray intranasal TID PRN (Reason: allergy symptoms) Qty: 15 6RF Rx Instructions: administer into each nostril (DME) nebulizers [AeroEclipse II Nebulizer] Misc See Rx Instructions .ROUTE .MEDSUPPLY Qty: 1 0RF Rx Instructions: As directed albuterol sulfate 0.63 mg/3 mL solution for nebulization 0.63 mg inhalation QID PRN (Reason: shortness of breath or wheezing) Qty: 75 0RF ondansetron 4 mg tablet,disintegrating 4 mg PO Q8H PRN (Reason: nausea and vomiting) Qty: 10 0RF hydrochlorothiazide 12.5 mg tablet 12.5 mg PO DAILY Trulicity 1.5 mg/0.5 mL pen injector 1.5 mg subcut QWEEK insulin aspart U-100 [Novolog FlexPen U-100 Insulin] 100 unit/mL (3 mL) insulin pen 25 unit subcut TID (DME) FreeStyle Lite Strips Strip See Rx Instructions .ROUTE TID Qty: 10 Rx Instructions: As directed atorvastatin 80 mg tablet 80 mg PO DAILY irbesartan 300 mg tablet 300 mg PO QAM levothyroxine 88 mcg tablet 88 mcg PO DAILY cholecalciferol (vitamin D3) 25 mcg (1,000 unit) tablet 25 mcg PO DAILY Levemir FlexTouch U100 Insulin 100 unit/mL (3 mL) insulin pen 50 unit subcut BEDTIME metoprolol succinate 25 mg tablet extended release 24 hr 25 mg PO DAILY albuterol sulfate 90 mcg/actuation HFA aerosol inhaler 2 inh inhalation QID PRN (Reason: shortness of breath or wheezing) Qty: 8.5 11RF Citrucel 500 mg tablet 500 mg PO BID Qty: 60 5RF simethicone [Gas Relief (simethicone)] 125 mg tablet,chewable 125 mg PO TID-QID PRN (Reason: abdominal distention) Qty: 90 2RF omeprazole 40 mg capsule,delayed release(DR/EC) 40 mg PO DAILY 30 Days Qty: 30 3RF Referrals: [facility] [Primary Care Provider] - 2 days Print Language: Malagasy
[2023-08-31 12:00] VITALS: BP 140/50; PULSE 58; TEMP 36.6; O2SAT 97
[2023-08-31 12:06] LABS: Influenza A PCR NEGATIVE (Negative); Influenza B PCR NEGATIVE (Negative); Resp Syncy Virus RNA Qual PCR NEGATIVE (Negative); SARS COV2 PCR INHOUSE NEGATIVE (Negative)
[2023-08-31 14:37] VITALS: PULSE 58; RESP 16; O2SAT 98
[2023-08-31] MEDS: Albuterol/Iprat 2.5/0.5MG 3 ML AMPUL.NEB INHALE (14:37)
[2023-08-31 15:07] VITALS: BP 154/57; PULSE 57; RESP 18; TEMP 36.6; O2SAT 99
== END 2023-08-31 15:16 | disposition home or self-care (01) ==
PROVIDERS: Registered Nurse Emergency; Emergency Provider Student in an Organized Health Care Education/Training Program
DX: J40 Bronchitis, not specified as acute or chronic (principal); I10 Essential (primary) hypertension; E11.9 Type 2 diabetes mellitus without complications; Z11.52 Encounter for screening for COVID-19
CPT/HCPCS: 0241U; 71046; 94640; 99284

== ENCOUNTER 2023-09-09 12:38 | Emergency (ER) | payer MEDICARE, MEDICAID, SELFPAY ==
--- NOTE | ~2023-09-09 | XR_ITS ---
EXAMINATION: XR CHEST CLINICAL INFORMATION: Cough COMPARISON: 08/31/2023 TECHNIQUE: 2 views of the chest were obtained. FINDINGS: No acute finding. Lung matos are felt to be comparable to previous. No infiltrate. No effusion. There is no failure. The cardiac silhouette is comparable. The hilar regions are not felt to be pathologically enlarged. XR/XR chest 2V IMPRESSION: No acute finding.
[2023-09-09 13:03] VITALS: BP 138/56; PULSE 68; RESP 16; TEMP 37; O2SAT 98; BMI 29.3
--- NOTE | 2023-09-09 13:03 | ED.GENADULT ---
HPI - General Adult General Chief complaint: Dyspnea Stated complaint: sob Time Seen by Provider: 09/09/23 16:02 Source: patient and family Mode of arrival: ambulatory Limitations: no limitations History of Present Illness HPI narrative: 68 year old female PMH: asthma, CHF, [place], HTN, diabetes admitted here approximately a week ago for shortness of breath was discharged has not been feeling well since patient has any falls or injuries denies chest pain nausea vomiting diarrhea. Related Data Home Medications ?Medication ?Instructions ?Recorded ?Confirmed atorvastatin 80 mg tablet 80 mg PO DAILY 12/19/21 12/30/22 blood sugar diagnostic (FreeStyle #10 ea 12/19/21 12/30/22 Lite Strips) cholecalciferol (vitamin D3) 25 25 mcg PO DAILY 12/19/21 12/30/22 mcg (1,000 unit) tablet dulaglutide 1.5 mg/0.5 mL 1.5 mg subcut QWEEK 12/19/21 12/30/22 subcutaneous pen injector (Trulicity) hydrochlorothiazide 12.5 mg tablet 12.5 mg PO DAILY 12/19/21 12/30/22 insulin aspart U-100 100 unit/mL 25 unit subcut TID 12/19/21 12/30/22 (3 mL) subcutaneous pen (Novolog FlexPen U-100 Insulin aspart) irbesartan 300 mg tablet 300 mg PO QAM 12/19/21 12/30/22 levothyroxine 88 mcg tablet 88 mcg PO DAILY 12/19/21 12/30/22 insulin detemir U-100 100 unit/mL 50 unit subcut BEDTIME 12/25/21 12/30/22 (3 mL) subcutaneous pen (Levemir FlexTouch U-100 Insulin) metoprolol succinate 25 mg 25 mg PO DAILY 07/01/22 12/30/22 tablet,extended release 24 hr Previous Rx's ?Medication ?Instructions ?Recorded nebulizers (AeroEclipse II #1 ea 03/06/21 Nebulizer) aspirin 81 mg tablet,delayed 81 mg PO DAILY 90 days #90 tabs 07/22/22 release albuterol sulfate 90 mcg/actuation 2 inh inhalation QID PRN shortness 08/01/22 aerosol inhaler of breath or wheezing #8.5 grams methylcellulose (laxative) 500 mg 500 mg PO BID #60 tabs 08/18/22 tablet (Citrucel) simethicone 125 mg chewable tablet 125 mg PO TID-QID PRN abdominal 08/18/22 (Gas Relief (simethicone)) distention #90 tabs diclofenac sodium 75 mg 75 mg PO BID #60 tabs 10/27/22 tablet,delayed release ondansetron 4 mg disintegrating 4 mg PO Q8H PRN nausea and 10/30/22 tablet vomiting #10 tabs famotidine 20 mg tablet 20 mg PO DAILY #90 tabs 02/16/23 ipratropium bromide 42 mcg (0.06 2 spray intranasal TID PRN allergy 07/06/23 %) nasal spray symptoms #15 mL omeprazole 40 mg capsule,delayed 40 mg PO DAILY 30 days #30 caps 08/24/23 release azithromycin 250 mg tablet See Rx Instructions PO .COMPLEX #6 08/31/23 tabs prednisone 20 mg tablet 40 mg (2 x 20 mg) PO DAILY 5 days 08/31/23 #10 tabs albuterol sulfate 0.63 mg/3 mL 0.63 mg (3 mL) inhalation QID PRN 09/03/23 solution for nebulization shortness of breath or wheezing #75 mL benzonatate 100 mg capsule 100 mg PO BID PRN cough #20 caps 09/09/23 prednisone 10 mg tablet 10 mg PO DIRECTED copd #52 tabs 09/09/23 Allergies Allergy/AdvReac Type Severity Reaction Status Date / Time No Known Allergies Allergy Verified 09/09/23 13:07 [facility] Past Medical History Medical History Pulmonary nodules On beta rito at home Hypothyroid Anxiety and depression Chronic restrictive lung disease [id number] syndrome Dyspnea Pulmonary fibrosis Osteoarthritis Hyperlipidemia GERD (gastroesophageal reflux disease) Hypertension Diabetes Asthma Surgical History History of tubal ligation History of esophagogastroduodenoscopy (EGD) Hx of colonoscopy Hx of left cataract extraction Hx of right cataract extraction S/P CABG x 3 Previous section Family History Family History Father Diabetes Hypertension Mother Colon cancer Hypotension Osteogenesis imperfecta Social History Social History Household Members Other:: Alcohol intake: never Patient Tobacco Use Status: Never used Tobacco Smoked in Last 30 Days: No Use of substances other than those prescribed or required for medical reasons: No Advance Directives: No Advance Directives Information Provided: No Physical Exam ED Vital Signs: Vital Signs - 24 hr 09/09/23 13:03 09/09/23 16:18 09/09/23 16:22 Temperature 98.6 F Pulse Rate 68 69 59 Respiratory Rate 16 18 16 Blood Pressure 138/56 L Pulse Oximetry 98 100 Oxygen Delivery Method Room Air Room Air 09/09/23 18:02 Temperature 98.1 F Pulse Rate 58 Respiratory Rate 18 Blood Pressure 182/52 H Pulse Oximetry 99 Oxygen Delivery Method Room Air BMI result Body Mass Index 29.3 Course Course Course Narrative: This is a rapid medical exam performed by Adan Jarvis NP: Additional HPI, ROS, PE not included below will be deferred to primary provider. Patient is a 68-year-old Tristanian speaking female with history of CAD, ischemic cardiomyopathy, chronic restrictive lung disease, asthma, DM presenting with ongoing productive cough and shortness of breath. Seen here on 08/30 for same, states never improved. Episodes of feeling like her throat is closing, which then causes anxiety. Mid upper back pain. Rhonchorous lung sounds, diminished. Plan: EKG, labs, CXR Reevaluation(s) Reevaluation #1: [id number] Patient looks well breathing improved smiling and happy to go home. I will send home on a steroid taper Medications Administered Discontinued Medications Generic Name Dose Route Start Last Admin Trade Name Jose Angel PRN Reason Stop Dose Admin Benzonatate 100 mg 09/09/23 16:33 09/09/23 17:05 Benzonatate 100 Mg Capsule PO 09/09/23 16:34 100 mg ONCE ONE Administration Albuterol Sulfate 2.5 mg/ 0 mg 09/09/23 16:19 09/09/23 16:22 Albuterol/Ipratropium 3 ml INHALE 09/09/23 16:20 1 dose ONCE ONE Administration Prednisone 60 mg 09/09/23 16:33 09/09/23 17:05 Prednisone 20 Mg Tablet PO 09/09/23 16:34 60 mg ONCE ONE Administration Medical Decision Making Medical Decision Making MDM Narrative: Patient concerns for pneumonia COPD exacerbation are. X-ray and labs and likely admit the patient to Medicine Differential Diagnosis Differential Diagnoses: The differential diagnosis associated with the presentation includes COPD exacerbation pneumonia dehydration Admission/Observation Consideration of admission/observation: Escalation of care including admission/observation considered Consult Healthcare Provider Management of the patient was discussed with: Hospitalist Lab Data MDM Lab Attestation statement: I reviewed the patient's lab results. 09/09/23 13:22 09/09/23 13:22 Labs: Lab Results 09/09/23 Range/Units 13:22 WBC 11.5 H (4.8-10.8) X10*3/uL RBC 4.15 L (4.20-5.50) X10*6/uL Hgb 11.7 L (12.0-16.0) g/dl Hct 35.7 L (37.0-47.0) % MCV 86.0 (80.0-98.0) fL MCH 28.2 (27.0-33.0) pg MCHC 32.8 (31.0-35.0) g/dl RDW 13.7 (11.0-16.0) % Plt Count 261 (160-400) X10*3/uL MPV 9.9 (9.4-12.3) fL Immature Gran % (Auto) 0.8 H (0.0-0.4) % Neut % (Auto) 65.1 (45-73) % Lymph % (Auto) 24.2 (20-40) % [place] % (Auto) 8.3 (2-11) % Eos % (Auto) 1.4 (0-4) % Baso % (Auto) 0.2 (0-2) % Lymph # (Auto) 2.8 (1.2-4.9) X10*3/uL [place] # (Auto) 1.0 (0.1-1.2) X10*3/uL Eos # (Auto) 0.2 (0.0-0.4) X10*3/uL Baso # (Auto) 0.0 (0.0-0.2) X10*3/uL Abs Immat Gran (auto) 0.09 H (0.00-0.03) X10*3/uL Absolute Neuts (auto) 7.5 (2.0-8.3) x10*3/uL Absolute Nucleated RBC 0.000 (0.0-0.012) X10*3/uL Nucleated RBC % (auto) 0.0 (0.0-0.2) /100WBC PT 11.9 (11.1-13.3) SEC INR 1.0 (0.9-1.1) Sodium 140 (135-145) mmol/L Potassium 4.9 (3.3-5.1) mmol/L Chloride 103 (96-108) mmol/L Carbon Dioxide 25 (22-29) mmol/L Anion Gap 17 (12-20) BUN 23 H (9-16) mg/dL Creatinine 0.87 (0.5-1.4) mg/dL Estim Creat Clear Calc 49.6 Estimated GFR > 60 Random Glucose 110 (60-115) mg/dL Calcium 9.9 (8.4-10.2) mg/dL Total Bilirubin 0.7 (0.0-1.0) mg/dL AST 25 (5-31) U/L ALT 27 (0-31) U/L Alkaline Phosphatase 57 (39-117) U/L Troponin I High Sens 5.0 (<3.5-17.0) ng/L Total Protein 7.5 (6.5-8.0) g/dL Albumin 4.0 (3.5-5.0) g/dL Independent Interpretation I performed an independent interpretation of an: EKG and Plain X-Ray Radiology Impression Discussion of test interpretation with radiology: I have reviewed the radiologist's reading. Independent Historian Clinical information obtained from an independent historian. History obtained from or confirmed by: Spouse Discharge Plan Discharge Clinical Impression: SOB (shortness of breath) on exertion, Acute exacerbation of chronic obstructive airways disease Patient Disposition: Home, Self-Care Instructions: COPD (Chronic Obstructive Pulmonary Disease) (DC), How to Use a Nebulizer (ED), How to Use a Metered-Dose Inhaler and a Spacer (ED) Additional Instructions: You were seen today in the emergency department for your Breathing. You an x-ray labs and breathing treatments improved. Please take the prescribed prednisone as prescribed and you can use benzonatate as needed If you have fever worsening breathing or any other concerns please return to the emergency department. Prescriptions: New prednisone 10 mg tablet 10 mg PO DIRECTED Qty: 52 0RF Rx Instructions: see taper instructions. Please take 6 tabs for 5 days then 5 tabs for 5 days then 4 tabs for 5 days then 3 tabs for 5 days then 2 tabs for 5 days then 1 tab for 5days benzonatate 100 mg capsule 100 mg PO BID PRN (Reason: cough) Qty: 20 0RF No Action aspirin 81 mg tablet,delayed release (DR/EC) 81 mg PO DAILY 90 Days Qty: 90 3RF diclofenac sodium 75 mg tablet,delayed release (DR/EC) 75 mg PO BID Qty: 60 2RF famotidine 20 mg tablet 20 mg PO DAILY Qty: 90 1RF ipratropium bromide 42 mcg (0.06 %) spray,non-aerosol 2 spray intranasal TID PRN (Reason: allergy symptoms) Qty: 15 6RF Rx Instructions: administer into each nostril albuterol sulfate 0.63 mg/3 mL solution for nebulization 0.63 mg inhalation QID PRN (Reason: shortness of breath or wheezing) Qty: 75 5RF (DME) nebulizers [AeroEclipse II Nebulizer] [facility] [place] See Rx Instructions .ROUTE .MEDSUPPLY Qty: 1 0RF Rx Instructions: As directed azithromycin 250 mg tablet See Rx Instructions .ROUTE .COMPLEX Qty: 6 0RF Rx Instructions: take 500 mg today (day 1), then 250 mg for 4 days (days 2-5) prednisone 20 mg tablet 40 mg PO DAILY 5 Days Qty: 10 0RF ondansetron 4 mg tablet,disintegrating 4 mg PO Q8H PRN (Reason: nausea and vomiting) Qty: 10 0RF hydrochlorothiazide 12.5 mg tablet 12.5 mg PO DAILY Trulicity 1.5 mg/0.5 mL pen injector 1.5 mg subcut QWEEK insulin aspart U-100 [Novolog FlexPen U-100 Insulin] 100 unit/mL (3 mL) insulin pen 25 unit subcut TID (DME) FreeStyle Lite Strips Strip See Rx Instructions .ROUTE TID Qty: 10 Rx Instructions: As directed atorvastatin 80 mg tablet 80 mg PO DAILY irbesartan 300 mg tablet 300 mg PO QAM levothyroxine 88 mcg tablet 88 mcg PO DAILY cholecalciferol (vitamin D3) 25 mcg (1,000 unit) tablet 25 mcg PO DAILY Levemir FlexTouch U100 Insulin 100 unit/mL (3 mL) insulin pen 50 unit subcut BEDTIME metoprolol succinate 25 mg tablet extended release 24 hr 25 mg PO DAILY albuterol sulfate 90 mcg/actuation HFA aerosol inhaler 2 inh inhalation QID PRN (Reason: shortness of breath or wheezing) Qty: 8.5 11RF Citrucel 500 mg tablet 500 mg PO BID Qty: 60 5RF simethicone [Gas Relief (simethicone)] 125 mg tablet,chewable 125 mg PO TID-QID PRN (Reason: abdominal distention) Qty: 90 2RF omeprazole 40 mg capsule,delayed release(DR/EC) 40 mg PO DAILY 30 Days Qty: 30 3RF Print Language: Tristanian
--- NOTE | 2023-09-09 13:06 | ECG_ITS ---
Test Reason : CHEST PAIN Blood Pressure : / mmHG Vent. Rate : 068 BPM Atrial Rate : 068 BPM P-R Int : 182 ms QRS Dur : 128 ms QT Int : 438 ms P-R-T Axes : 025 -24 005 degrees QTc Int : 465 ms Normal sinus rhythm Right bundle branch block Minimal voltage criteria for LVH, may be normal variant ( R in aVL ) Abnormal ECG When compared to the previous EKG of No significant changes seen Referred By: Yvette Jarvis Electronically Signed By:KAYLEN DELGADILLO MD
[2023-09-09 13:28] LABS: MANUAL DIFF FLAG NO
[2023-09-09 13:30] LABS: Basophils Percent Auto 0.2 % (0-2); Eosinophils Absolute Auto 0.2 X10*3/uL (0.0-0.4); Eosinophils Percent Auto 1.4 % (0-4); Hematocrit 35.7 % (37.0-47.0); Hemoglobin 11.7 g/dl (12.0-16.0); Imm Gran Abs Auto 0.09 X10*3/uL (0.00-0.03); Imm Gran Pct Auto 0.8 % (0.0-0.4); Lymphocytes Absolute Auto 2.8 X10*3/uL (1.2-4.9); Lymphocytes Percent Auto 24.2 % (20-40); Mean Corpuscular HGB Conc 32.8 g/dl (31.0-35.0); Mean Corpuscular Hemoglobin 28.2 pg (27.0-33.0); Mean Platelet Volume 9.9 fL (9.4-12.3); Monocytes Percent Auto 8.3 % (2-11); Neutrophils Absolute Auto 7.5 x10*3/uL (2.0-8.3); Neutrophils Percent Auto 65.1 % (45-73); Platelet Count 261 X10*3/uL (160-400); Red Blood Count 4.15 X10*6/uL (4.20-5.50); Red Cell Distribution Width 13.7 % (11.0-16.0); White Blood Count 11.5 X10*3/uL (4.8-10.8)
[2023-09-09 13:35] LABS: Prothrombin Time 11.9 SEC (11.1-13.3)
[2023-09-09 13:44] LABS: Alanine Aminotransferase 27 U/L (0-31); Alkaline Phosphatase 57 U/L (39-117); Anion Gap 17 (12-20); Aspartate Amino Transferase 25 U/L (5-31); Bilirubin Total 0.7 mg/dL (0.0-1.0); Blood Urea Nitrogen 23 mg/dL (9-16); Calcium 9.9 mg/dL (8.4-10.2); Carbon Dioxide 25 mmol/L (22-29); Chloride 103 mmol/L (96-108); Creatinine Clr Calc Pharmacy 49.6; Estimated Glomerular Filt Rate > 60; Glucose Random 110 mg/dL (60-115); Potassium 4.9 mmol/L (3.3-5.1); Sodium 140 mmol/L (135-145); Total Protein 7.5 g/dL (6.5-8.0)
[2023-09-09 16:18] VITALS: PULSE 69; RESP 18; O2SAT 100
[2023-09-09 16:22] VITALS: PULSE 59; RESP 16; O2SAT 99
[2023-09-09] MEDS: Albuterol Sulfate 2.5 MG, Albuterol/Iprat 2.5/0.5MG 3 ML 3 ML INHALE (16:22)
[2023-09-09] MEDS: predniSONE 20 MG TABLET 60 MG PO (17:05)
[2023-09-09] MEDS: Benzonatate 100 MG CAPSULE PO (17:05)
[2023-09-09 18:02] VITALS: BP 182/52; PULSE 58; RESP 18; TEMP 36.7; O2SAT 99
[2023-09-09 19:00] VITALS: BP 182/52; PULSE 58; RESP 18; TEMP 36.7; O2SAT 99
== END 2023-09-09 19:14 | disposition home or self-care (01) ==
PROVIDERS: Registered Nurse Emergency; Emergency Provider Student in an Organized Health Care Education/Training Program
DX: J44.1 Chronic obstructive pulmonary disease with (acute) exacerbation (principal); R06.02 Shortness of breath; E78.5 Hyperlipidemia, unspecified; I10 Essential (primary) hypertension; E11.9 Type 2 diabetes mellitus without complications; K21.9 Gastro-esophageal reflux disease without esophagitis; Z79.82 Long term (current) use of aspirin; Z79.899 Other long term (current) drug therapy; Z79.4 Long term (current) use of insulin; Z79.85 Long-term (current) use of injectable non-insulin antidiabetic drugs; Z79.02 Long term (current) use of antithrombotics/antiplatelets
CPT/HCPCS: 36415; 71046; 80053; 84484; 85025; 85610; 93005; 94640; 99285

== ENCOUNTER → 2023-09-09 13:06 | Outpatient (BNV) | payer MEDICARE, MEDICAID, SELFPAY | PROVIDERS: Emergency Provider Student in an Organized Health Care Education/Training Program; Visit Provider Internal Medicine Cardiovascular Disease | DX: R94.31 Abnormal electrocardiogram [ECG] [EKG] (principal) | CPT/HCPCS: 93010 ==

== ENCOUNTER → 2024-01-19 08:56 | Outpatient (REF) | payer MEDICARE, MEDICAID, SELFPAY ==
--- NOTE | 2024-01-19 08:59 | CA_ITS ---
Transthoracic Echocardiogram Patient (Last, First, Middle): Olivia Rivero, Gender: Female Date of : 1955 Age: 68 Procedure Date: 01/19/2024 Procedure Type: Transthoracic Echocardiogram Location: OP Height: 147. cm Weight: 67.59 kg BSA: 1.60 m2 Heart Rate: 68 bpm BP: 110 / 65 mmHg Wheat Shipper: DANISH Referring MD: David Lockhart MD Symptoms: I25.5 - Ischemic cardiomyopathy Study Quality: Fair ECG Rhythm: Sinus Conclusions: - The left ventricular systolic function is low normal. The calculated ejection fraction is 54% by biplane method. - The basal inferior segment is akinetic. - No obvious valvular pathology seen on this study. Findings Left Ventricle Normal left ventricular cavity size. There is mildly increased left ventricular wall thickness. The left ventricular systolic function is low normal. The calculated ejection fraction is 54% by biplane method. There is evidence of regional wall motion abnormalities. There is paradoxical septal motion consistent with post-operative status. Evidence suggests grade I (mild) diastolic dysfunction. Wall Motion Rest Echo Findings The basal inferior segment is akinetic. Right Ventricle Normal right ventricular cavity size. There is moderately decreased right ventricular systolic function. Atria Both atria are normal in size. Aortic Valve There is a normal trileaflet aortic valve. There is no aortic valve stenosis. There is no aortic valve regurgitation. Mitral Valve The mitral valve appears normal. There is mild mitral annular calcification. There is trace mitral valve regurgitation. There is no mitral valve stenosis. Pulmonic Valve The pulmonic valve is likely normal. Tricuspid Valve There is no tricuspid valve regurgitation. Tricuspid regurgitation envelope is inadequate for calculation of right ventricular systolic pressure. Great Vessels The asc aorta is normal in size. Small plaque is seen in the sino tubular ridge. Venous The inferior vena cava is normal in size and collapses greater than 50% with inspiration. Pericardium/Pleural There is no evidence of pericardial effusion. Prior Study Comparison No significant change compared to prior study dated: 03/14/2022. Recommendations, Care & Conclusions No obvious valvular pathology seen on this study. Measurements 2D Linear Measurements IVSd: 1.24 0.6-0.9/0.6-1.0 cm LVIDd: 4.20 3.9-5.3/4.2-5.9 cm LVIDd Index: 2.63 2.4-3.2/2.2-3.1 cm/m2 LVIDs: 2.30 2.0-3.6 cm LVPWd: 1.30 0.7-1.1 cm LA Diam: 3.10 2.7-3.8/3.0-4.0 cm LAIDs Index: 1.94 1.5-2.3 cm/m2 LV Mass: 241.38 67-162/88-224 g LV Mass Index: 150.86 43-95/49-115 g/m2 LVOT Diam: 1.80 3.0+(-)1.3 cm 2D Systolic Function EF 4C: 53.20 >55% EF 2C: 56.40 >55% EF BiP: 54.40 >55% Mitral Valve MV Pk E: 0.66 MV PK A: 0.87 MV Decel Time: 278.00 E/A: 0.80 E'Lateral: 9.25 E'Medial: 3.81 E/E' Med: 17.30 E/E' Lat: 7.10 PHT: 82.00 MVA PHT: 2.68 Decel [place]: 2.37 Aortic Valve AoV Pk Joe: 1.53 AoV Mn Joe: 1.05 AoV VTI: 0.39 AoV Pk Grad: 9.00 Aov Mn Grad: 5.00 MOLLY Cont.VTI: 1.24 LVOT LVOT Pk Joe: 0.84 LVOT Mn Joe: 0.56 LVOT VTI: 0.19 LVOT Pk Grad: 3.00 LVOT Mn Grad: 1.00 LVOT Diam: 1.80 LVOT Area: 2.54 Diastolic Function MV Pk E: 0.66 MV Pk A: 0.87 E/A: 0.80 E'Medial: 3.81 E/E' Med: 17.30 E' Laterial: 9.25 E/E' Lat: 7.10 Right Ventricle TAPSE (mm): 15.10 TVS' Joe: 5.25 Great Vessels Aorta Sinus of Valsalva: 3.40 2.0-3.5 cm Ao Asc: 3.60 2.1-3.4 cm Pulmonary Valve PV Pk Joe: 0.92 Peak PV Grad: 3.00 Updated in Other Vendor System with Status of Final Ean Nelson MD electronically signed on 01/20/2024 11:22:57 AM with status of Final
== END ==
LOC: HO.CARD 08:56
PROVIDERS: Visit Provider Internal Medicine Cardiovascular Disease
DX: I25.5 Ischemic cardiomyopathy (principal); I25.10 Atherosclerotic heart disease of native coronary artery without angina pectoris
CPT/HCPCS: 93306

== ENCOUNTER → 2024-01-19 08:59 | Outpatient (BNV) | payer MEDICARE, MEDICAID, SELFPAY | PROVIDERS: Visit Provider Internal Medicine | DX: I25.5 Ischemic cardiomyopathy (principal); I34.81 Nonrheumatic mitral (valve) annulus calcification; Z98.890 Other specified postprocedural states | CPT/HCPCS: 93306 ==

== ENCOUNTER 2024-01-25 14:42 | Outpatient (AMB) | payer MEDICARE, MEDICAID, SELFPAY ==
--- NOTE | 2024-01-25 15:12 | A.OFFVIS_ITS ---
Vital Signs 01/25/24 15:13 Height 4 ft 11 in Weight 149 lb 14.629 oz BMI 30.3 BP 110/70 Blood Pressure Location Lt brachial Position Sitting Pulse 66 Intake Visit Reasons: follow-up after echo Intake Note: Follow-up after echo feeling good Program Professional Required: Yes Program Professional Services: Program Professional Present Program Professional Name: Jvaon smiley Manager Sterile: Manager Sterile Present Accompanied by: Daughter Allergies No Known Allergies Allergy (Verified 09/09/23 13:07) Medication List - Last Reconciled 01/25/24 by MERARY Francois albuterol sulfate 0.63 mg (3 mL) inhalation QID PRN albuterol sulfate 90 mcg/actuation 2 inhalations inhalation QID PRN aspirin 81 mg PO DAILY 90 days atorvastatin 80 mg PO DAILY benzonatate 100 mg PO BID PRN blood sugar diagnostic (FreeStyle Lite Strips) As directed cholecalciferol (vitamin D3) 25 mcg PO DAILY diclofenac sodium 75 mg PO BID dulaglutide (Trulicity) 1.5 mg subcut QWEEK famotidine 20 mg PO DAILY hydrochlorothiazide 12.5 mg PO DAILY insulin aspart U-100 (Novolog FlexPen U-100 Insulin aspart) 25 units subcut TID insulin detemir U-100 (Levemir FlexTouch U-100 Insulin) 50 units subcut BEDTIME ipratropium bromide 2 sprays intranasal TID PRN irbesartan 300 mg PO QAM levothyroxine 88 mcg PO DAILY methylcellulose (laxative) (Citrucel) 500 mg PO BID metoprolol succinate ER 25 mg PO DAILY nebulizers (AeroEclipse II Nebulizer) As directed omeprazole 40 mg PO DAILY 30 days ondansetron 4 mg PO Q8H PRN simethicone (Gas Relief (simethicone)) 125 mg PO TID-QID PRN HPI HPI follow-up after echo: Details: Olivia is a 68-year-old female with past medical history of hypertension, hyperlipidemia, diabetes, CAD, coronary artery bypass grafting, ischemic cardiomyopathy who presents for follow-up after recent echocardiogram. Her last prior visit to our office was 12/30/2022. Today she reports that she has been doing well over the last year. She denies having chest discomfort at rest or with activity. No concerning shortness of breath. No PND, orthopnea or edema. No lightheadedness, palpitations, presyncope, syncope, falls. Takes her meds as directed. Daughter is present. 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 [facility], [facility] Medical History (Updated 01/25/24 @ 17:21 by Kathy Dawson, SHAMPOO PERSON-C) Hypertension Pulmonary nodules On beta rito at home Hypothyroid Anxiety and depression Chronic restrictive lung disease [id number] syndrome Dyspnea Pulmonary fibrosis Osteoarthritis Hyperlipidemia GERD (gastroesophageal reflux disease) Diabetes Asthma Surgical History History of tubal ligation History of esophagogastroduodenoscopy (EGD) Hx of colonoscopy Hx of left cataract extraction Hx of right cataract extraction S/P CABG x 3 Previous section Family History Father Diabetes Hypertension Mother Colon cancer Hypotension Osteogenesis imperfecta Social History Household Members Other:: Alcohol intake: never Patient Tobacco Use Status: Never used Tobacco Review of Systems Const All systems reviewed & are unremarkable except as noted in HPI and below Denies chills, Denies fatigue, Denies fever(s), Denies frequent falls, Denies weakness, Denies weight gain and Denies weight loss ENT Denies dizziness Card Denies chest pain, Denies leg edema, Denies lightheadedness, Denies palpitations, Denies dyspnea, Denies dyspnea on exertion, Denies orthopnea and Denies other (loss of consciousness) Resp Denies cough, Denies dyspnea and Denies dyspnea on exertion GI Denies hematochezia and Denies change in stool character Musc Denies abnormal gait, Denies muscle weakness, Denies numbness, Denies radiating pain into limb and Denies tingling Neuro Denies abnormal gait, Denies dizziness, Denies frequent falls, Denies numbness, Denies tingling and Denies weakness Endo Denies fatigue and Denies palpitations Physical Exam Vital Signs: Last Vital Signs Pulse 66 01/25/24 15:13 BP 110/70 01/25/24 15:13 BMI result Body Mass Index 30.3 Const General: cooperative, healthy appearing, comfortable and no acute distress Orientation/consciousness: patient oriented x3 Neck Neck: Yes normal visual inspection Resp Effort & Inspection: normal respiratory effort Auscultation: clear to auscultation bilaterally, no rales, no rhonchi and no wheezes Cardio Jugular venous distension: no JVD Rate: regular rate Rhythm: regular rhythm Heart sounds: S1 normal heart sound present, S2 normal heart sound present, no murmurs and no rubs Neuro General: patient oriented x3 Extrem General: Yes normal to inspection, No no pedal edema and No calf tenderness Psych Appearance: grossly normal Mental Status: mental status grossly normal Speech and movement: Normal speech and movement present Assessment & Plan Assessment & Plan (1) CAD (coronary artery disease): Comment: Coronary artery bypass grafting x3, carreon to LAD, SVG to OM, GSV to right PDA 02/12/2022 Code(s): I25.10 - Atherosclerotic heart disease of [place] coronary artery without angina pectoris Category: Medical Plan: History of CAD with prior coronary artery bypass grafting. Echocardiogram done 1 month post surgery showed EF 45-50%, regional wall motion abnormality consistent with underlying CAD. She was treated for ischemic cardiomyopathy with Arb losartan and metoprolol. EKG done 09/09/2023 showed sinus rhythm with right bundle branch block, rate 68. Unchanged from prior. An echocardiogram done 01/19/2024 showed EF 54%, basal inferior akinetic, grade 1 diastolic dysfunction. Today she denies any anginal sounding symptoms. She reports doing well in the last year. No signs of heart failure on examination. Will continue with risk factor modification including good blood pressure, cholesterol and diabetes control. Continue physical activity as tolerated. Continue aspirin indefinitely. Continue high-dose atorvastatin with ideal LDL goal less than 70. Labs done 07/05/2022 showed LDL 46. Repeat labs entered into the system and patient states she will obtain next week. Continue irbesartan and metoprolol XL for neurohormonal modulation. Signs and symptoms of heart failure reviewed with her. Cardiology follow-up in 1 year, sooner if needed. (2) Hypertension: Code(s): I10 - Essential (primary) hypertension Category: Medical Plan: [place] blood pressure goal less than 130/85. Blood pressure today 110/70. No med changes made. Continue hydrochlorothiazide, irbesartan, metoprolol XL. CMP ordered (3) Ischemic cardiomyopathy: Code(s): I25.5 - Ischemic cardiomyopathy Category: Medical Plan: EF improved as stated above. (4) Hyperlipidemia: Code(s): E78.5 - Hyperlipidemia, unspecified Category: Medical Plan: [place] LDL goal less than 70. Well controlled on high-dose atorvastatin based on last lab test. Updated lipid profile ordered. Continue atorvastatin 80 mg daily. (5) Diabetes: Code(s): E11.9 - Type 2 diabetes mellitus without complications Category: Medical Plan: Hemoglobin A1c goal less than 7. Followed by her PCP. Plan Time spent on chart review, documentation, interview and assessment Orders: Orders Comprehensive Met. Panel Today I25.10 - Atherosclerotic heart disease of [place] coronary artery without angina pectoris Lipid Panel Today I25.10 - Atherosclerotic heart disease of [place] coronary artery without angina pectoris Coding Level of Care Code Est Pt Level 4 (82505) Diagnoses CAD (coronary artery disease) I25.10 Hypertension I10 Ischemic cardiomyopathy I25.5 Hyperlipidemia E78.5 Diabetes E11.9 Time Spent (min) 28
[2024-01-25 15:13] VITALS: BP 110/70; PULSE 66; BMI 30.3
== END 2024-01-25 15:50 | disposition home or self-care (01) ==
PROVIDERS: Visit Provider Nurse Practitioner Family
DX: I25.10 Atherosclerotic heart disease of native coronary artery without angina pectoris (principal); I10 Essential (primary) hypertension; I25.5 Ischemic cardiomyopathy; E78.5 Hyperlipidemia, unspecified; E11.9 Type 2 diabetes mellitus without complications
CPT/HCPCS: 99214

== ENCOUNTER → 2024-01-25 14:42 | Outpatient (BNVA) | payer MEDICARE, MEDICAID, SELFPAY | PROVIDERS: Visit Provider Nurse Practitioner Family | DX: I10 Essential (primary) hypertension (principal); I25.10 Atherosclerotic heart disease of native coronary artery without angina pectoris; I25.5 Ischemic cardiomyopathy; E11.9 Type 2 diabetes mellitus without complications; E78.5 Hyperlipidemia, unspecified; Z95.1 Presence of aortocoronary bypass graft | CPT/HCPCS: 99212 ==

== ENCOUNTER 2024-01-29 08:25 | Outpatient (REF) | payer MEDICARE, MEDICAID, SELFPAY ==
[2024-01-29 09:31] LABS: Cholesterol 111 mg/dL (<200); HDL Cholesterol 40 mg/dL (>40); LDL Cholesterol Calculated 49 mg/dL (<100); Triglycerides 110 mg/dL (<150)
[2024-01-29 09:35] LABS: Alanine Aminotransferase 21 U/L (0-31); Alkaline Phosphatase 64 U/L (39-117); Anion Gap 11 (12-20); Aspartate Amino Transferase 32 U/L (5-31); Bilirubin Direct 0.3 mg/dL (0.0-0.5); Bilirubin Total 0.7 mg/dL (0.0-1.0); Blood Urea Nitrogen 13 mg/dL (9-16); Calcium 9.9 mg/dL (8.4-10.2); Carbon Dioxide 30 mmol/L (22-29); Chloride 103 mmol/L (96-108); Cholesterol 123 mg/dL (<200); Estimated Glomerular Filt Rate > 60; Glucose Random 133 mg/dL (60-115); HDL Cholesterol 42 mg/dL (>40); LDL Cholesterol Calculated 59 mg/dL (<100); Potassium 4.2 mmol/L (3.3-5.1); Sodium 140 mmol/L (135-145); Total Protein 7.6 g/dL (6.5-8.0); Triglycerides 114 mg/dL (<150)
[2024-01-29 11:27] LABS: Microalbum/Creatinine Ratio Ur 1903.7 ug/mg cr (<30)
== END 2024-01-29 08:26 | disposition home or self-care (01) ==
LOC: HO.LAB 08:25
PROVIDERS: PCP General Practice; Visit Provider Nurse Practitioner Family
DX: I25.10 Atherosclerotic heart disease of native coronary artery without angina pectoris (principal); E11.22 Type 2 diabetes mellitus with diabetic chronic kidney disease; Z79.4 Long term (current) use of insulin; I10 Essential (primary) hypertension
CPT/HCPCS: 36415; 80053; 80061; 82043; 82248; 82570

== ENCOUNTER 2024-02-19 07:42 | Outpatient (REF) | payer MEDICARE, MEDICAID, SELFPAY ==
--- NOTE | ~2024-02-19 | FL_ITS ---
EXAMINATION: XR FLUOROSCOPY UPPER GI WITH AIR CLINICAL INFORMATION: Reflux COMPARISON: None TECHNIQUE: Fluoroscopic air contrast upper GI examination was performed utilizing standard techniques with thin and thick barium and effervescent granules. Numerous spot images were obtained. FINDINGS: Dual and single contrast images of the esophagus demonstrate normal caliber, contour, and mucosal pattern. There is mild cricopharyngeal achalasia present No evidence of stricture, mass, or ulcerations identified. There is to and fro motion of the barium column with nonpropulsive tertiary contractions noted throughout the esophagus. Median sternotomy wires are present. No evidence of hiatus hernia identified. Gastroesophageal reflux is observed up to the midesophagus. Dual contrast and single contrast images of the stomach demonstrated a normal contour. The areae gastrica have a thickened appearance, suggestive of gastritis. There are multiple small foci of contrast pooling in the fundus the stomach that may represent small superficial aphthous ulcers. No masses are present. Contrast freely passed into the gastric antrum and duodenal bulb without delay. Single and air-contrast images of the duodenal bulb demonstrate no abnormality. The duodenal sweep has a normal appearance, course, and mucosal fold appearance. The imaged proximal jejunum has a normal fold pattern and caliber. FLUOROSCOPY TIME: 4 minutes 36 seconds Number of Spot Images: 10 Number of Cine: 12 DOSE AREA PRODUCT: 3540 uGy-m2 (microgray-meter squared) FL/FL barium swallow with air IMPRESSION: 1. Mild cricopharyngeal achalasia. 2. Esophageal dysmotility. 3. Mild gastroesophageal reflux. 4. Thickened appearance of the areae gastrica. In addition, there are multiple small foci of contrast pooling in the fundus the stomach. These findings likely represent erosive gastritis. Recommend correlation with EGD. This procedure was performed by Jamar Tran PA-C, and supervised by Dr. Penn Electronically signed by: Yogesh Penn MD 02/19/2024 04:[address] [facility]
== END 2024-02-19 07:43 | disposition home or self-care (01) ==
LOC: HO.XRAY 07:42
PROVIDERS: PCP General Practice; Visit Provider Hospitalist
DX: K21.9 Gastro-esophageal reflux disease without esophagitis (principal); R10.11 Right upper quadrant pain; K29.70 Gastritis, unspecified, without bleeding; K63.5 Polyp of colon; R11.0 Nausea
CPT/HCPCS: 74221; 99212

== ENCOUNTER → 2024-02-19 07:44 | Outpatient (BNV) | payer MEDICARE, MEDICAID, SELFPAY | PROVIDERS: PCP General Practice; Visit Provider Physician Assistant Surgical | DX: K21.9 Gastro-esophageal reflux disease without esophagitis (principal) | CPT/HCPCS: 74246 ==

== ENCOUNTER 2024-02-19 11:28 | Outpatient (AMB) | payer MEDICARE, MEDICAID, SELFPAY ==
--- NOTE | 2024-02-19 11:35 | MHC.OFFVIS ---
Vital Signs 02/19/24 11:39 Height 4 ft 11 in Weight 149 lb BMI 30.1 BP 137/59 L Blood Pressure Location Lt brachial Position Sitting Pulse 69 Intake Visit Reasons: GERD f/u Intake Note: Olivia presents in the office as a follow up for GERD. CC: She states when she bens over she gets pains in the left side. She gets constipation but she had a ba swallow and states the barium is causing some leakage of her rectum. Landscape Architecture Teacher Required: Yes Landscape Architecture Teacher Name: Alyssa [id number] Allergies No Known Allergies Allergy (Verified 09/09/23 13:07) HPI Comments Details: 68 y.o F with PMH of CAD s/p cardiac bypass with ischemic cardiomyopathy EF 50%, T2DM, obesity, hypothyroidism, who is here for follow up. [place] [facility] [place] Seen with press box custodian. Pt reports post prandial abd discomfort which is diffuse assoc with nausea without vomiting. No change in bowel habits. Pain can start anywhere from 5-30 mins after food. Triggered with heavy fatty foods and dairy (pt tries to avoid lactose as much as possible). Had a barium swallow ordered by her Pulm results pending. Recent endoscopy: EGD/colo 08/04/22 (Dr Hathaway) Gastritis. Inflammed hyperplastic gastric polyp 1.5 cm polyp in transverse colon - hyperplastic. EGD/colo 06/02/19 (Dr Hathaway) LPRD. Gastritis. No HP Fair prep. No polyps. Diverticulosis. hemorrhoids. Path: normal colon mucosa. [facility] Medical History Hypertension Pulmonary nodules On beta riot at home Hypothyroid Anxiety and depression Chronic restrictive lung disease [id number] syndrome Dyspnea Pulmonary fibrosis Osteoarthritis Hyperlipidemia GERD (gastroesophageal reflux disease) Diabetes Asthma Surgical History History of tubal ligation History of esophagogastroduodenoscopy (EGD) Hx of colonoscopy Hx of left cataract extraction Hx of right cataract extraction S/P CABG x 3 Previous section Family History Father Diabetes Hypertension Mother Colon cancer Hypotension Osteogenesis imperfecta Social History Household Members Other:: Alcohol intake: never Patient Tobacco Use Status: Never used Tobacco Review of Systems Const All systems reviewed & are unremarkable except as noted in HPI and below Physical Exam Vital Signs: Last Vital Signs Pulse 69 02/19/24 11:39 BP 137/59 L 02/19/24 11:39 BMI result Body Mass Index 30.1 No apparent distress Nonicteric Abdomen soft, nondistended Alert and oriented x3, normal gait Assessment & Plan Assessment & Plan (1) RUQ pain: Code(s): R10.11 - Right upper quadrant pain Category: Medical (2) Gastritis: Code(s): K29.70 - Gastritis, unspecified, without bleeding Category: Medical (3) Colon polyps: Code(s): K63.5 - Polyp of colon Category: Medical (4) Nausea: Code(s): R11.0 - Nausea Category: Medical (5) GERD (gastroesophageal reflux disease): Code(s): K21.9 - Gastro-esophageal reflux disease without esophagitis Category: Medical Qualifiers: Esophagitis presence: with esophagitis Esophagitis bleeding: without hemorrhage Qualified Code(s): K21.00 - Gastro-esophageal reflux disease with esophagitis, without bleeding Plan 1. Abd pain Has known GERD and gastritis. Ddx also includes esophagitis, PUD, symptomatic gallstones. Plan: - Await barium study results - Add sucralfate 10 ml PRN up to QID - Educated on appropriately administration of PPI - US Abd 2. Colon polyp Will need repeat colo in 3 years i.e 2025 since this was a R sided >10 mm hyperplastic polyp i.e will be managed as an SSL. Follow up in 6 months as per pt's request as will be out of state for unknown duration of time. Orders: Orders US abdomen complete Today R10.11 - Right upper quadrant pain Medications: New sucralfate 10 mL PO QIDACHS PRN 300 mL 1RF abd pain K29.70 - Gastritis, unspecified, without bleeding Coding Level of Care Code Est Pt Level 4 (53073) Diagnoses RUQ pain R10.11 Gastritis K29.70 Colon polyps K63.5 Nausea R11.0 Gastroesophageal reflux disease with esophagitis without hemorrhage K21.00 Esophagitis presence: with esophagitis Esophagitis bleeding: without hemorrhage
[2024-02-19 11:39] VITALS: BP 137/59; PULSE 69; BMI 30.1
== END 2024-02-19 12:20 | disposition home or self-care (01) ==
PROVIDERS: PCP General Practice; Visit Provider Internal Medicine
DX: R10.11 Right upper quadrant pain (principal); K29.70 Gastritis, unspecified, without bleeding; K63.5 Polyp of colon; R11.0 Nausea; K21.00 Gastro-esophageal reflux disease with esophagitis, without bleeding
CPT/HCPCS: 99214

== ENCOUNTER 2024-02-22 07:29 | Outpatient (REF) | payer MEDICARE, MEDICAID, SELFPAY ==
--- NOTE | ~2024-02-22 | MM_ITS ---
EXAMINATION: MM SCREENING DIGITAL BREAST TOMOSYNTHESIS, BILATERAL CLINICAL INFORMATION: Screening. Asymptomatic. COMPARISON: Mammography: Comparison is made with available priors TECHNIQUE: Digital breast mammography with tomosynthesis is performed in both the craniocaudal and mediolateral oblique views along with computer-aided detection (CAD). FINDINGS: The breasts are extremely dense, which lowers the sensitivity of mammography (ACR BI-RADS breast composition Category d). Bilateral coarse dystrophic calcifications are stable. There are no significant masses, abnormal calcifications, or other abnormalities. MM/MM tomosynthesis screening BI IMPRESSION: No mammographic evidence of malignancy. ASSESSMENT: BI-RADS BI-RADS 2 - Benign Findings RECOMMENDATION: Routine annual mammography screening. 1 year F/U This examination should not preclude the clinical evaluation of a suspicious palpable abnormality. This patient's information was entered into a reminder system with a target due date for their next mammogram. Electronically signed by: Lashonda Hebert DO 03/01/2024 11:11 AM [facility]
== END 2024-02-22 07:30 | disposition home or self-care (01) ==
LOC: HO.MAMMO 07:29
PROVIDERS: PCP General Practice; Visit Provider General Practice
DX: Z12.31 Encounter for screening mammogram for malignant neoplasm of breast (principal)
CPT/HCPCS: 77063; 77067

== ENCOUNTER → 2024-02-22 07:45 | Outpatient (BNV) | payer MEDICARE, MEDICAID, SELFPAY | PROVIDERS: PCP General Practice; Visit Provider Internal Medicine | DX: Z12.31 Encounter for screening mammogram for malignant neoplasm of breast (principal) | CPT/HCPCS: 77063; 77067 ==

== ENCOUNTER 2024-02-29 07:54 | Outpatient (AMB) | payer MEDICARE, MEDICAID, SELFPAY ==
[2024-02-29 08:17] VITALS: BP 128/60; PULSE 66; O2SAT 96
--- NOTE | 2024-02-29 08:17 | A.OFFVIS_ITS ---
Vital Signs 02/29/24 08:17 BP 128/60 Blood Pressure Location Lt brachial Position Sitting Pulse 66 Pulse Source Pulse Oximeter Pulse Oximetry (%) 96 Oxygen Delivery Method Room Air Intake Visit Reasons: COPD Allergies No Known Allergies Allergy (Verified 02/29/24 08:21) Medication List - Last Reconciled 02/29/24 by Priscila David LPN albuterol sulfate 0.63 mg (3 mL) inhalation QID PRN albuterol sulfate 90 mcg/actuation 2 inhalations inhalation QID PRN aspirin 81 mg PO DAILY 90 days atorvastatin 80 mg PO DAILY benzonatate 100 mg PO BID PRN blood sugar diagnostic (FreeStyle Lite Strips) As directed cholecalciferol (vitamin D3) 25 mcg PO DAILY diclofenac sodium 75 mg PO BID dulaglutide (Trulicity) 1.5 mg subcut QWEEK famotidine 20 mg PO DAILY hydrochlorothiazide 12.5 mg PO DAILY insulin aspart U-100 (Novolog FlexPen U-100 Insulin aspart) 25 units subcut TID insulin detemir U-100 (Levemir FlexTouch U-100 Insulin) 50 units subcut BEDTIME ipratropium bromide 2 sprays intranasal TID PRN irbesartan 300 mg PO QAM levothyroxine 88 mcg PO DAILY methylcellulose (laxative) (Citrucel) 500 mg PO BID metoprolol succinate ER 25 mg PO DAILY nebulizers (AeroEclipse II Nebulizer) As directed omeprazole 40 mg PO DAILY 30 days ondansetron 4 mg PO Q8H PRN simethicone (Gas Relief (simethicone)) 125 mg PO TID-QID PRN sucralfate 10 mL PO QIDACHS PRN HPI Comments Details: The patient is a 68-year-old woman who initially was evaluated back in the spring and then she was lost to follow-up. She has a history of asthma. the patient's condition worsen in the beginning of 2021 after she developed severe COVID. Patient was found to have bilateral pneumonia from that infection. The patient continued to have significant shortness of breath after recovering COVID. Moderate severity. She could not perform even simple activities of daily living without becoming significantly winded. The patient had an echocardiogram which did demonstrate a decreased ejection fraction of 50% with some evidence of hypokinesis and also moderate diastolic dysfunction. Ultimately she left to [place] for several months. When she was there her breathing got worse. She had an x-ray and also was evaluated by specialist. Nose felt that the patient had some degree of congestive heart failure and also her obstructive airway disease. She was maintain respiratory therapy and also start diuretics. Her breathing did improve. She did return she denies state. Now as she is following up for care. She did bring a CD with an x-ray that she had there not long ago and I also did review her chest x-ray that she had back in April. Patient does have increased cardiac size in addition to that the art reticulonodular opacities bilaterally likely a combination of pulmonary fibrosis and also cephalization. View of the abnormal chest x-ray I will request a CT scan of the chest to assess her degree of interstitial lung disease. The patient also has a cardiology evaluation pending. 02/03/2022 The patient is here for a pulmonary follow up visit. She is overall doing better from a pulmonary stand point. Continues to complain off dyspnea on exertion, moderate in severity. Does improve with rest. No significant coughing or chest tightness. The patient underwent a CT chest demonstrating stable nodules and no evidence of ILD. Her PFTs demonstrated a moderate restrictive process. I did provide her with an incentive spirometer that she will start using prior to her surgery. 08/01/2022 the patient is here for a pulmonary follow-up visit. The patient is doing very well. She did undergo her cardiac surgery without any complications. Postoperatively she did require left-sided thoracentesis which was affective. Her post thoracentesis x-ray looked a lot better. We did review demonstrating still some atelectatic changes to the left base. She does have increased cardiac size the time. We also talked about her CT scan of the chest that she had back in the fall 2021 with pulmonary nodules. There is small and not concerning. She will however need a CT scan in the fall 2022. The patient does have a EGD and colonoscopy scheduled soon. She is medically optimize my respiratory status and she may able to proceed with anesthesia and her GI procedures without any limitations. Otherwise patient is doing well will follow-up in the fall to follow up with her CT scan. 12/02/2022 the patient is here for a pulmonary follow-up visit. Overall the patient has been doing well. The patient denies any significant shortness of breath or cough. She did have a CT scan of the chest in August 2022. Will personally reviewed. The pulmonary nodules appear to be stable compared to December 2021. The patient also was noted to have a 1.6 cm axillary lymph node. She had had not gotten any vaccines. On examination her respiratory status is stable. I did not appreciate any significant lymphadenopathy in the axilla. She will continue to examine. She does get her mammograms regularly. The patient will go ahead and have a repeat CT scan in a year's time. Will follow-up. In the meantime she has any concerning issues or any new symptoms she is to call for an earlier assessment. 08/24/2023 the patient is here for a pulmonary follow-up visit. Overall the patient is doing fair. She is complaining significant reflux disease and irritation. Moderate severity. She does not take any medications for it. She has a hard time sleeping because of it. Resulting in a cough. The patient did have a repeat CT scan of the chest. Has not been for from formally read. Will go ahead and request final read. I did evaluate myself. It appears that she does have a dilated esophagus and likely hiatal hernia. Will go ahead and request a barium swallow. As far as her pulmonary nodules, 1 appears to be subsolid nature in the right middle lobe area. Will need longer follow-up. 02/29/2024 the patient is here for a pulmonary follow-up visit. The patient overall is doing well from a respiratory status. She did have a CT scan back in 08/24/2023 demonstrating stable pulmonary nodules for 2 years. 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 She had a distended esophagus. She continues to have heartburn. She did have a barium swallow demonstrating reflux disease and also gastritis. She needs to follow-up with GI regarding potential endoscopy. In the meantime she is also working closely with Cardiology. She had a echocardiogram with an EF of 54% and she does have some wall motion abnormalities likely due to her underlying heart disease. The patient is thinking about moving to [place]. I will make sure to send her all the medications to the pharmacy so she has them. When she situated she will call to get records. [facility] Medical History Hypertension Pulmonary nodules On beta rito at home Hypothyroid Anxiety and depression Chronic restrictive lung disease [id number] syndrome Dyspnea Pulmonary fibrosis Osteoarthritis Hyperlipidemia GERD (gastroesophageal reflux disease) Diabetes Asthma Surgical History History of tubal ligation History of esophagogastroduodenoscopy (EGD) Hx of colonoscopy Hx of left cataract extraction Hx of right cataract extraction S/P CABG x 3 Previous section Family History Father Diabetes Hypertension Mother Colon cancer Hypotension Osteogenesis imperfecta Social History Household Members Other:: Alcohol intake: never Patient Tobacco Use Status: Never used Tobacco Review of Systems Const Reports fatigue and Denies fever(s) Eyes Denies change in vision ENT Denies change in voice Card Denies chest pain and Reports dyspnea on exertion Resp Denies chest congestion, Reports cough, Reports dyspnea on exertion and Denies wheezing GI Reports no additional complaints Musc Reports no additional complaints Skin/Breast Denies rash Neuro Reports no additional complaints and Denies Abnormal speech present Endo Reports fatigue Jethro/Lymph Denies easy bleeding and Denies easy bruising Aller/Immun Denies wheezing Physical Exam Vital Signs: Last Vital Signs Pulse 66 02/29/24 08:17 BP 128/60 02/29/24 08:17 Pulse Ox 96 02/29/24 08:17 Oxygen Delivery Method Room Air 02/29/24 08:17 Const General: cooperative, comfortable and no acute distress Orientation/consciousness: patient oriented x3 Neck Neck: Yes normal visual inspection and Yes no JVD Chest Other: Sternal incision well healed, nontender to palpation around area, no open skin noted Resp Effort & Inspection: normal respiratory effort Auscultation: no crackles, no rales, no rhonchi, no wheezes and diminished lung sounds Cardio Jugular venous distension: no JVD Rate: regular rate Rhythm: regular rhythm Heart sounds: S1 normal heart sound present, S2 normal heart sound present, no gallops, no murmurs and no rubs Peripheral pulses: Peripheral pulses 2+ throughout Neuro General: patient oriented x3 Speech: No Abnormal speech present Extrem Other: Scabs to each of the GS V graft sites. Area on left leg with large scab, redness around the area and pus noted around scab edges, not draining actively. Psych Appearance: grossly normal Mental Status: mental status grossly normal Speech and movement: Normal speech and movement present Results Reviewed Results Reviewed: [address] [address] [address] Scan Report Signed Patient: Olivia Rivero MR#: [id number] : 1955 Acct:[id number] Age/Sex: 68 / F ADM Date: 08/14/23 Loc: HO.CT Attending Dr: Gibson Hoffman MD Ordering Physician: Gibson Hoffman MD Date of Service: 08/14/23 Procedure(s): CT chest wo IV con Accession Number(s): [id number] cc: Gibson Hoffman MD~ EXAMINATION: CT CHEST WITHOUT CONTRAST CLINICAL INFORMATION: Pulmonary nodule. COMPARISON: 08/21/2022, 12/27/2021 and selected priors. TECHNIQUE: Multidetector volumetric CT imaging of the chest was done. Axial MIP volume rendering provided. Sagittal and coronal reformatted images were obtained. This CT examination was performed using dose optimization techniques as appropriate, variously including the following: *Automated exposure control *Adjustment of mA and/or kV according to patient size (this includes techniques or standardized protocols for targeted exams where dose is matched to indication/reason for exam; i.e. 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 LUNGS: A less than 4 mm left upper lobe perifissural nodule (series 5 image 111) stable since 2021. No follow up indicated. A densely calcified left lower lobe pulmonary nodule (series 5 image 251), unchanged since 2021. No follow up indicated. A stable less than 4 mm right middle lobe pulmonary nodule (series 5 image 227). No follow up indicated. No new pulmonary nodules. Exam degraded by motion artifact. Patchy air-trapping noted. Focal fibrosis in the medial right lower lobe overlying prominent dorsal osteophytes, stable given differences in technique. Lunate trachea with collapse in the sagittal plane raises the possibility of tracheomalacia. Consider pulmonary function studies. MEDIASTINUM: No mediastinal mass or lymphadenopathy. CORONARY ARTERY CALCIFICATION: Severe coronary artery disease. Status post median sternotomy for bypass surgery. PLEURA: There is no pleural effusion. No pleural mass or thickening. AXILLA: No lymphadenopathy. UPPER ABDOMEN: Marked atherosclerotic peripheral vascular disease. Dependent high density material in an otherwise normal-appearing gallbladder, likely small layering stones. OSSEOUS STRUCTURES: The sternum is well united. No evidence of dehiscence. Degenerative spine disease. CT/CT chest wo IV con IMPRESSION: Small stable pulmonary nodules without change advisor 2 years. No follow up indicated. Air-trapping. 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 Consider pulmonary function studies. CABG. Cholelithiasis. Fleischner guidelines were followed. Dictated By: Jovani Chen MD Signed By: <Electronically signed by Jovani Chen MD in OV> Assessment & Plan Assessment & Plan (1) Asthma: Code(s): J45.909 - Unspecified asthma, uncomplicated Category: Medical Qualifiers: Asthma complication type: uncomplicated Asthma persistence: persistent Asthma severity: moderate Qualified Code(s): J45.40 - Moderate persistent asthma, uncomplicated (2) Dyspnea: Code(s): R06.00 - Dyspnea, unspecified Category: Medical Qualifiers: Dyspnea type: dyspnea on exertion Qualified Code(s): R06.09 - Other for ms of dyspnea (3) Chronic restrictive lung disease: Code(s): J98.4 - Other disorders of lung Category: Medical (4) Pulmonary nodules: Code(s): R91.8 - Other nonspecific abnormal finding of lung field Category: Medical (5) GERD (gastroesophageal reflux disease): Code(s): K21.9 - Gastro-esophageal reflux disease without esophagitis Category: Medical Qualifiers: Esophagitis bleeding: without hemorrhage Esophagitis presence: with es ophagitis Qualified Code(s): K21.00 - Gastro-esophageal reflux disease with esophagitis, without bleeding Plan continue short-acting beta agonist as needed F/U with GI reflux diet small pulmonary nodule 2mm, repeat CT chest August 2023 stable >2 yrs singulair QHS follow-up in 8-12 months Medications: New montelukast (Singulair) 10 mg PO BEDTIME 90 tabs 3RF 90 days J45.909 - Unspecified asthma, uncomplicated Refilled albuterol sulfate 90 mcg/actuation 2 inhalations inhalation QID PRN 8.5 grams 11RF shortness of breath or wheezing J20.9 - Acute bronchitis, unspecified, J45.901 - Unspecified asthma with (acute) exacerbation, J45.909 - Unspecified asthma, uncomplicated Coding Level of Care Code Est Pt Level 4 (36882) Diagnoses Moderate persistent asthma without complication J45.40 Asthma complication type: uncomplicated Asthma persistence: persistent Asthma severity: moderate Dyspnea on exertion R06.09 Dyspnea type: dyspnea on exertion Chronic restrictive lung disease J98.4 Pulmonary nodules R91.8 Gastroesophageal reflux disease with esophagitis without hemorrhage K21.00 Esophagitis bleeding: without hemorrhage Esophagitis presence: with esophagitis Time Spent (min) 16
== END 2024-02-29 08:41 | disposition home or self-care (01) ==
PROVIDERS: Visit Provider Hospitalist
DX: J45.40 Moderate persistent asthma, uncomplicated (principal); R06.09 Other forms of dyspnea; J98.4 Other disorders of lung; R91.8 Other nonspecific abnormal finding of lung field; K21.00 Gastro-esophageal reflux disease with esophagitis, without bleeding
CPT/HCPCS: 99214

== ENCOUNTER → 2024-02-29 07:54 | Outpatient (BNVA) | payer MEDICARE, MEDICAID, SELFPAY | PROVIDERS: Visit Provider Hospitalist | DX: J44.9 Chronic obstructive pulmonary disease, unspecified (principal); J45.41 Moderate persistent asthma with (acute) exacerbation; J98.4 Other disorders of lung; J20.9 Acute bronchitis, unspecified; R06.09 Other forms of dyspnea; R91.8 Other nonspecific abnormal finding of lung field; K21.00 Gastro-esophageal reflux disease with esophagitis, without bleeding | CPT/HCPCS: 99212 ==

== ENCOUNTER 2024-03-07 08:45 | Outpatient (REF) | payer MEDICARE, MEDICAID, SELFPAY | END 2024-03-07 08:46 | disposition home or self-care (01) | LOC: HO.US 08:45 | PROVIDERS: PCP General Practice; Visit Provider Internal Medicine | DX: R10.11 Right upper quadrant pain (principal) | CPT/HCPCS: 76700 ==